=== PATIENT | male | born 1940 | race Caucasian/White ===

== ENCOUNTER 2019-03-20 08:12 | Day surgery (SDC) | payer OTHER ==
[2019-03-19 09:14] VITALS: BMI 32.5
[2019-03-20 08:44] LABS: BASO % 0.9 % (0-2.0); EOS % 3.1 % (0-4.5); HEMATOCRIT 41.4 % (35.4-49); HEMOGLOBIN 14.6 GM/dL (11.7-16.9); MCH 31.7 pg (25.7-33.7); MCHC 35.4 g/dl (32.0-35.9); MEAN CELL VOLUME 89.6 fl (80-96); MEAN PLT VOLUME 8.3 fl (7.5-11.1); PLATELET COUNT 204 K/MM3 (134-434); RBC 4.62 M/mm3 (4.00-5.60); RDW 15.3 % (11.9-15.9); WHITE BLOOD COUNT 6.5 K/mm3 (4.0-10.0)
[2019-03-20 09:21] LABS: INR 1.08 (0.83-1.09); PROTHROMBIN TIME (PATIENT) 12.8 SEC (9.7-13.0)
[2019-03-20 13:11] VITALS: BP 160/70; TEMP 98
[2019-03-20 13:15] VITALS: PULSE 8
[2019-03-20 13:22] LABS: BF WBC & OTHER NUCLEATED CELLS 6902 /mm3
[2019-03-20 15:08] LABS: BODYL FLD EOSINOPHIL 2 %
[2019-03-20 15:09] LABS: BODY FLUID MACROPHAGES 2 %
[2019-03-23 16:07] LABS: BODY FLUID ALBUMIN 2.5 g/dL (Not Estab.)
--- NOTE | 2019-03-23 16:21 | PATH ---
Cytology Non-Gynecological Report Patient Name: JON ALFARO [facility]. Rec. #: [id number] /Age/Gender: 1940 (Age: 78) / M Account: [id number] Location: [facility] SURGICAL Taken: 03/20/2019 Received: 03/20/2019 Reported: 03/23/2019 Physicians: Marky Wagoner M.D. Specimen(s) Received A: 50CC PLEURAL FLUID IN 50% ALCOHOL B: 1200 CC PLEURAL FLUID Clinical History History of prostatic cancer Final Diagnosis A & B. PLEURAL FLUID, RIGHT, THORACENTESIS: SATISFACTORY FOR EVALUATION. LYMPHOCYTIC PLEURAL EFFUSION. SMALL LYMPHOID POPULATION, FEW MACROPHAGES AND MESOTHELIAL CELLS PRESENT. SEE COMMENT. Comment: No evidence of carcinoma. Recommend correlation with clinical findings and follow up as clinically indicated. Electronically Signed Mira Kennedy M.D. Gross Description A. Approximately 50cc of edelmira colored fluid received fixed in 50% alcohol. One cytospin and one cellblock prepared. B. Approximately 1200cc of edelmira colored fluid received fresh. One cytospin and one cellblock prepared.
== END 2019-03-20 13:00 | disposition home or self-care (01) ==
LOC: JASU-SURG 08:12
PROVIDERS: ATTEND Internal Medicine Pulmonary Disease
PROC: 0W993ZZ Drainage of Right Pleural Cavity, Percutaneous Approach (ICD-10-PCS; principal; 2019-03-20)
PROC: BB4BZZZ Ultrasonography of Pleura (ICD-10-PCS; 2019-03-20)
DX: J90 Pleural effusion, not elsewhere classified (principal)
CPT/HCPCS: 32555; 36415; 71046-TC-FY; 76942; 82042; 82150; 82465; 82945; 83615; 83986; 84157; 84478; 85025; 85610; 87070; 87075; 87102; 87116; 87205; 87206; 87210; 88108; 88305-TC

== ENCOUNTER 2019-04-09 06:07 | Day surgery (SDC) | payer OTHER ==
[2019-04-08 09:26] VITALS: BMI 32.3
[2019-04-09] MEDS ORDERED: MIDAZOLAM HCL 2 MG/2 ML SINGLE DOSE VIAL ONE (06:51)
[2019-04-09] MEDS ORDERED: ePHEDrine SULFATE 50 MG/1 ML AMPULE ONE (06:57)
[2019-04-09] MEDS ORDERED: DEXAMETHASONE SOD PHOSPHATE 4 MG/1 ML VIAL ONE (06:57)
[2019-04-09] MEDS ORDERED: KETOROLAC TROMETHAMINE 30 MG/1 ML VIAL ONE (06:57)
[2019-04-09] MEDS ORDERED: ONDANSETRON 4 MG/2 ML VIAL ONE (06:57)
[2019-04-09] MEDS ORDERED: PROPOFOL 20 ML ONE (06:58)
[2019-04-09] MEDS ORDERED: SUCCINYLCHOLINE CHLORIDE 200 MG/10 ML SYRINGE ONE (06:58)
[2019-04-09] MEDS ORDERED: ROCURONIUM BROMIDE 50 MG/5 ML SYRINGE ONE (06:58)
[2019-04-09] MEDS ORDERED: SEVOFLURANE 250 ML BTL ONE (07:02)
[2019-04-09] MEDS ORDERED: DESFLURANE GAS 240 ML BOTTLE IH ONE (07:02)
[2019-04-09] MEDS ORDERED: BUPIVACAINE LIPOSOME/PF (EXPAREL) 266 MG/20 ML VIAL ONE (07:16)
[2019-04-09] MEDS ORDERED: BUPIVACAINE HCL/PF 0.5% (5 MG/ML) 30 ML VIAL IJ ONE (07:16)
[2019-04-09] MEDS ORDERED: ONDANSETRON 4 MG/2 ML VIAL IVPUSH PRN (07:19)
[2019-04-09] MEDS ORDERED: LACTATED RINGERS SOLUTION 1,000 ML IV SCH (07:30)
[2019-04-09] MEDS ORDERED: ASPIRIN 325 MG TABLET PO ONE (08:29)
--- NOTE | 2019-04-09 08:39 | PN ---
Progress Note (short form) - Note Progress Note: Pt with h/o Afib, EF30%, R pleural effusion s/p thoracentesis recently was brought to OR this morning for an elective laparoscopic right nephrectomy. He received 2mg versed en route to OR, and when EKG leads were placed, it showed ST depressions and widened QRS. Lead positions were changed twice, with same EKG result. Compared to pre-op EKG, this was a definitive change. 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 Will give 325mg PO ASA in PACU, as well as obtain 12lead EKG, CXR, and relevant lab work.
[2019-04-09 09:27] LABS: ALBUMIN 3.3 g/dl (3.4-5.0); BILIRUBIN,TOTAL 1.6 mg/dL (0.2-1); BLOOD UREA NITROGEN 15.5 mg/dL (7-18); CALCIUM 8.5 mg/dL (8.5-10.1); CREATININE 0.8 mg/dL (0.55-1.3); POTASSIUM 3.6 mmol/L (3.5-5.1); TOT PROT 6.4 g/dl (6.4-8.2)
[2019-04-09] MEDS ORDERED: ACETAMINOPHEN 1000 MG/100 ML VIAL (NON FORMULARY) IVPB ONE (11:00)
--- NOTE | 2019-04-09 11:31 | CON.CARD ---
Cardiology Consult (text) - Consultation Consultation Note: cc: elective kidney surgery hpi: 78 m hx syst chf, ar/as, pafib, htn, hld here for elective kidney surgery for tumor. Feeling well. No cp sob palps dizzy loc pnd orthopnea le edema. Procedure postponed today because tele monitor appeared different from his 12 lead ecg. pmh: per hpi psh: no surgery social: ex tob fam: no premature cad, scd ros: per hpi; all others nl meds: Home Medications Medication Instructions Recorded Apixaban [Eliquis] 5 mg PO BID 03/19/19 Atorvastatin Ca [Lipitor] 20 mg PO DAILY 03/19/19 Metoprolol Succinate 200 mg PO DAILY 03/19/19 Sacubitril/Valsartan [Entresto 97 1 tab PO BID 03/19/19 mg-103 mg Tablet] pe: Vital Signs Period Temp Pulse Resp BP Sys/Blanco Pulse Ox Last 24 Hr 97.8 F-98.0 F 63-72 16-20 127-158/58-78 95-98 nad no jvd irreg, s1s2, no r/g, +murmur no jaundice diaphoresis cta bl nl eff aao3 no le e/c/c abd nt nd pos bs pos dp pt no carotid bruits Laboratory Last Values Sodium 143 mmol/L (136-145) 04/09/19 08:32 Potassium 3.6 mmol/L (3.5-5.1) 04/09/19 08:32 Chloride 110 mmol/L (98-107) H 04/09/19 08:32 Carbon Dioxide 26 mmol/L (21-32) 04/09/19 08:32 Anion Gap 7 MMOL/L (8-16) L 04/09/19 08:32 BUN 15.5 mg/dL (7-18) 04/09/19 08:32 Creatinine 0.8 mg/dL (0.55-1.3) 04/09/19 08:32 Est GFR (CKD-EPI)AfAm 100.57 04/09/19 08:32 Est GFR (CKD-EPI)NonAf 86.77 04/09/19 08:32 Random Glucose 110 mg/dL (74-106) H 04/09/19 08:32 Calcium 8.5 mg/dL (8.5-10.1) 04/09/19 08:32 Total Bilirubin 1.6 mg/dL (0.2-1) H 04/09/19 08:32 AST 14 U/L (15-37) L 04/09/19 08:32 ALT 15 U/L (13-61) 04/09/19 08:32 Alkaline Phosphatase 74 U/L (45-117) 04/09/19 08:32 CK-MB (CK-2) 2.0 ng/mL (0.5-3.6) 04/09/19 08:32 Troponin I 0.02 ng/ml (0.00-0.05) 04/09/19 08:32 Total Protein 6.4 g/dl (6.4-8.2) 04/09/19 08:32 Albumin 3.3 g/dl (3.4-5.0) L 04/09/19 08:32 Blood Type O NEGATIVE 04/09/19 07:31 Antibody Screen Negative 04/09/19 07:05 ecg: afib, rate ok, lvh with repol changes, no sig change prior cxr: chronic changes a/p: 78 m hx syst chf, ar/as, pafib, htn, hld here for elective kidney surgery for tumor. abnl ekg: -tele strip in question was reviewed and shows st depression in lead I. This st depression is present chronically in pt's ecg's due to lvh with repolarization abnormality. Appeared more prominent on tele monitor, however this is a different modality than 12 lead ecg and slight variation in appearance is expected. No acute cardiac findings present today. No cardiac contraindications (intermediate risk) to planned kidney surgery. Avoid excess ivfs given his hx chf. Eliquis can be held temporarily. pafib: -cont bb for rate control -cont eliquis syst chf: -stable vol status. Cont bb, entresto. as/ar: Pt denies symptoms. Outpt f/u. hld: -cont statin htn: -cont home meds cardiac gee stable for dc
--- NOTE | 2019-04-09 12:41 | EKG ---
Test Reason : Blood Pressure : / mmHG Vent. Rate : 066 BPM Atrial Rate : 075 BPM P-R Int : 000 ms QRS Dur : 120 ms QT Int : 450 ms P-R-T Axes : 000 -39 159 degrees QTc Int : 471 ms ATRIAL FIBRILLATION WITH PREMATURE VENTRICULAR OR ABERRANTLY CONDUCTED COMPLEXES LEFT AXIS DEVIATION LEFT VENTRICULAR HYPERTROPHY WITH QRS WIDENING ABNORMAL ECG NO PREVIOUS ECGS AVAILABLE Confirmed by MATTHEW ZAMAN MD ([id number]) on 04/09/2019 12:40:23 PM Referred By: Confirmed By:MATTHEW ZAMAN MD
[2019-04-09 13:46] VITALS: BP 133/64; PULSE 75; TEMP 97.3
== END 2019-04-09 11:50 | disposition home or self-care (01) | DRG 844 ==
LOC: JASUSAT 06:07 → EDSTATUS 07:30 → UNDODISIN 11:50 → JASUSAT 11:50
PROVIDERS: ATTEND Urology
DX: Z53.8 Procedure and treatment not carried out for other reasons (principal)
CPT/HCPCS: 36415; 71045-TC-FY; 80053; 82553; 84484; 86850; 86900; 86901; 93005; 93010; 94760

== ENCOUNTER 2019-05-18 04:52 | Inpatient (IN) | payer OTHER ==
[2019-05-14 13:33] VITALS: BMI 31.8
[2019-05-18] MEDS ORDERED: BUPIVACAINE HCL/PF 0.5% (5 MG/ML) 30 ML VIAL IJ ONE (07:30)
[2019-05-18] MEDS ORDERED: BUPIVACAINE LIPOSOME/PF (EXPAREL) 266 MG/20 ML VIAL ONE (07:30)
[2019-05-18] MEDS ORDERED: MIDAZOLAM HCL 2 MG/2 ML SINGLE DOSE VIAL ONE ×2 (07:36)
[2019-05-18] MEDS ORDERED: ETOMIDATE 20 MG/10 ML AMPUL IVPUSH ONE (07:43)
[2019-05-18] MEDS ORDERED: fentaNYL CITRATE 250 MCG/5 ML VIAL ONE (07:43)
[2019-05-18] MEDS ORDERED: ROCURONIUM BROMIDE 50 MG/5 ML SYRINGE ONE ×2 (07:43→08:54)
[2019-05-18] MEDS ORDERED: PROPOFOL 20 ML ONE (08:02)
[2019-05-18] MEDS ORDERED: ceFAZolin SODIUM 1 GM VIAL IVPB ONE (08:27)
[2019-05-18] MEDS ORDERED: NEOSTIGMINE METHYLSULFATE 0.5 MG/ML - 10 ML MDV ONE (10:30)
[2019-05-18] MEDS ORDERED: BACITRACIN 15 GM TUBE TOPICAL OINTMENT ONE (10:34)
--- NOTE | 2019-05-18 10:49 | OP ---
Operative Note - Note: Operative Date: 05/18/19 Pre-Operative Diagnosis: rt kidney tumor Operation: lap rt nephrectomy Post-Operative Diagnosis: Same as Pre-op Surgeon: Marky Garza Anesthesia: General Specimens Removed: rt kid Estimated Blood Loss (mls): 250 Operative Report Dictated: Yes
[2019-05-18] MEDS ORDERED: ELECTROLYTE-148 SOLN 1,000 ML IV SCH (11:00)
[2019-05-18] MEDS ORDERED: ONDANSETRON 4 MG/2 ML VIAL IVPUSH PRN (11:07)
[2019-05-18] MEDS ORDERED: HYDROmorphone *PCA* 10MG/50ML DISP.SYRIN PCA SCH (11:15)
--- NOTE | 2019-05-18 11:56 | OP ---
DATE OF OPERATION: 05/18/2019 PREOPERATIVE DIAGNOSIS: Large right kidney tumor. POSTOPERATIVE DIAGNOSIS: Large right kidney tumor. PROCEDURE: Laparoscopic, right radical nephrectomy. SURGEON: Christiano Apodaca MD CO-SURGEON: Marky Garza MD INDICATIONS: Patient is a 78-year-old male with a large, incidentally noted 9- cm low pole right kidney tumor who elected to undergo a laparoscopic right radical nephrectomy. Risks, benefits, and alternatives discussed including potential need for open nephrectomy as well as injury to adjacent organs. DESCRIPTION OF PROCEDURE: After informed consent was obtained, patient was taken to the OR, placed supine on the table. After cardiac monitoring was administered, spinal anesthetic was established, he was prepped and draped in a classic flank position with the right side up, left side down. All pressure points were padded, and the Moreno catheter and OG tube were inserted. At this point, in a sterile fashion, a Veress needle was placed in the mid abdomen on the right side lateral to the rectus abdominis after 3 clicks until the abdominal cavity was entered. This was insufflated with gas and appropriate pressure was noted. With this removed then a 12-mm trocar was placed in its place with a Veress needle and through the trocar , the laparoscope was placed. Inspection revealed no evidence of any injury to the bowel, any organ in the abdominal cavity. Under visualization, triangulation was carried out with a 2nd 12-mm trocar in the right lower quadrant and a 13-mm trocar in the right upper quadrant. These were done 12-mm trocars under visual inspection. There was a 4th 5-mm trocar placed just below the xiphoid process on the right side for liver retractor. These were, again, all done under visualization. There is the liver retractor, a locking grasper was used to retract the liver cephalad. At this point then the peritoneum was incised over where the liver was sitting to free up the upper pole. In a similar fashion, medially the peritoneum was incised inferiorly to free the bowel immediately. Immediately, the IVC was identified. This was dissected to the renal vein. The renal vein was dissected free with a right-angle dissector and just superior and lateral to vein, the artery was noted. This was dissected free with the right-angle dissector. Using the vascular endo MIGUEL, the renal artery was taken 1st and then the renal vein. No other vessels were identified, and this was consistent with the patient's CAT scan findings. The rest of the attachments were freed with LigaSure including the inferior gonadal and ureter. The remaining lateral attachments were then freed until the entire kidney was freed. It was then placed into a 15-mm bag that was inserted in the lower quadrant trocar site. Under direct vision, the kidney was placed in the bag and the bag brought up to the trocar site. The abdomen was then re-insufflated and re-inspected. There was no evidence of any bleeding from the renal hilum or the liver bed. Surgicel and Gelfoam was placed in both areas. There is no injury to any adjacent organs. Then the right lower quadrant trocar site was incised to remove the entire kidney in the entrapment bag. Visual inspection revealed no evidence of any active bleeding from the wound. Attention turned to wound closure. The 3 trocar sites were closed with moy and then the right lower quadrant site was closed with a running 0 Vicryl in a 2- layered fashion for muscle layers and then skin was closed with skin moy. Patient was awoken from anesthesia and transferred to recovery room in stable condition. There were no complications. Estimated blood loss was approximately 250 mL. Deedee [id number] MTDD
[2019-05-18] MEDS ORDERED: DOCUSATE NA 100 MG/10 ML UNIT-DOSE CUPS PO ONE (12:16)
[2019-05-18] MEDS ORDERED: HYDROmorphone *PCA* 10MG/50ML DISP.SYRIN ONE (12:26)
[2019-05-18 12:27] LABS: HEMATOCRIT 40.4 % (35.4-49); HEMOGLOBIN 13.2 GM/dL (11.7-16.9); MCH 29.3 pg (25.7-33.7); MCHC 32.6 g/dl (32.0-35.9); MEAN CELL VOLUME 89.6 fl (80-96); MEAN PLT VOLUME 8.3 fl (7.5-11.1); PLATELET COUNT 232 K/MM3 (134-434); RBC 4.51 M/mm3 (4.00-5.60); RDW 14.7 % (11.9-15.9); WHITE BLOOD COUNT 13.9 K/mm3 (4.0-10.0)
--- NOTE | 2019-05-18 12:52 | CON.CARD ---
Cardiology Consult (text) - Consultation Consultation Note: cc: s/p elective kidney surgery hpi: 78 m hx syst chf, ar/as, pafib, htn, hld here for elective kidney surgery for tumor, now s/p surgery. Surgery had been postponed in 03/2019 due to abnormal tele monitoring with stable EKG findings. No cp sob palps dizzy loc pnd orthopnea le edema. No complications during procedure, now monitoring in PACU. pmh: per hpi psh: no surgery social: ex tob fam: no premature cad, scd ros: per hpi; all others nl meds: Home Medications Medication Instructions Recorded Apixaban [Eliquis] 5 mg PO BID 03/19/19 Atorvastatin Ca [Lipitor] 20 mg PO DAILY 03/19/19 Metoprolol Succinate 200 mg PO DAILY 03/19/19 Sacubitril/Valsartan [Entresto 97 1 tab PO BID 03/19/19 mg-103 mg Tablet] pe: Vital Signs Period Temp Pulse Resp BP Sys/Blanoc Pulse Ox Last 24 Hr 97.7 F 52 20 155/71 97 nad no jvd irreg, s1s2, no r/g, +murmur no jaundice diaphoresis cta bl nl eff aao3 no le e/c/c abd nt nd pos bs pos dp pt no carotid bruits Laboratory Last Values WBC 13.9 K/mm3 (4.0-10.0) H 05/18/19 11:45 RBC 4.51 M/mm3 (4.00-5.60) 05/18/19 11:45 Hgb 13.2 GM/dL (11.7-16.9) 05/18/19 11:45 Hct 40.4 % (35.4-49) 05/18/19 11:45 MCV 89.6 fl (80-96) 05/18/19 11:45 MCH 29.3 pg (25.7-33.7) 05/18/19 11:45 MCHC 32.6 g/dl (32.0-35.9) 05/18/19 11:45 RDW 14.7 % (11.9-15.9) 05/18/19 11:45 Plt Count 232 K/MM3 (134-434) 05/18/19 11:45 MPV 8.3 fl (7.5-11.1) 05/18/19 11:45 Blood Type O NEGATIVE 05/18/19 06:14 Antibody Screen Negative 05/18/19 06:14 ecg: afib, rate ok, lvh with repol changes, no sig change prior cxr: chronic changes tele: afib, rate ok a/p: 78 m hx syst chf, ar/as, pafib, htn, hld here for elective kidney surgery for tumor. s/p R nephrectomy - manage per urology, anesthesia - resume eliquis when able per surgery - monitoring on tele post op pafib: -cont bb for rate control -resume eliquis when clear per surgery syst chf: -stable vol status. Cont bb, entresto. as/ar: Pt denies symptoms. Outpt f/u. hld: -cont statin htn: -cont home meds
[2019-05-18 12:53] LABS: BLOOD UREA NITROGEN 21.2 mg/dL (7-18); CALCIUM 8.4 mg/dL (8.5-10.1); CREATININE 1.1 mg/dL (0.55-1.3); POTASSIUM 4.2 mmol/L (3.5-5.1)
--- NOTE | 2019-05-18 13:25 | HP ---
CHIEF COMPLAINT: s/p R radical nephrectomy Urologist: Dr. Garza Wing Coverer: Dr. Ortiz HISTORY OF PRESENT ILLNESS: 78 M h/o HFrEF 30%, HTN, HLD, Afib on Eliquis presents s/p elective laparoscopic R radical nephrectomy for a R kidney mass. Patient was scheduled for this procedure originally 04/14 but surgery was cancelled d/t suspected ischemic EKG changes on tele strip. Currently patient feeling OK, denies CP/ SOB. EBL 250cc, patient tolerated surgery well. Perioperatively VSS. Patient requested to be transferred to Medicine service for further management of Afib, chronic HF and HTN. Recent Travel: denies PAST MEDICAL HISTORY: HFrEF, HTN, HLD, Afib on AC PAST SURGICAL HISTORY: R radical Nephrectomy 04/2019 Social History: denies Smoking: denies Alcohol: denies Drugs: denies Allergies amlodipine Allergy (Severe, Verified 04/09/19 07:08) Swelling LE'S SWELLING HOME MEDICATIONS: Home Medications Medication Instructions Recorded Apixaban [Eliquis] 5 mg PO BID 03/19/19 Atorvastatin Ca [Lipitor] 20 mg PO DAILY 03/19/19 Metoprolol Succinate 200 mg PO DAILY 03/19/19 Sacubitril/Valsartan [Entresto 97 1 tab PO BID 03/19/19 mg-103 mg Tablet] REVIEW OF SYSTEMS CONSTITUTIONAL: Absent: fever, chills, diaphoresis, generalized weakness, malaise, loss of appetite, weight change HEENT: Absent: rhinorrhea, nasal congestion, throat pain, throat swelling, difficulty swallowing, mouth swelling, ear pain, eye pain, visual changes CARDIOVASCULAR: Absent: chest pain, syncope, palpitations, irregular heart rate, lightheadedness , peripheral edema RESPIRATORY: Absent: cough, shortness of breath, dyspnea with exertion, orthopnea, wheezing, stridor, hemoptysis GASTROINTESTINAL: Absent: abdominal pain, abdominal distension, nausea, vomiting, diarrhea, constipation, melena, hematochezia GENITOURINARY: Absent: R flank pain MUSCULOSKELETAL: Absent: myalgia, arthralgia, joint swelling, back pain, neck pain SKIN: Absent: rash, itching, pallor HEMATOLOGIC/IMMUNOLOGIC: Absent: easy bleeding, easy bruising, lymphadenopathy, frequent infections ENDOCRINE: Absent: unexplained weight gain, unexplained weight loss, heat intolerance, cold intolerance NEUROLOGIC: Absent: headache, focal weakness or paresthesias, dizziness, unsteady gait, seizure, mental status changes, bladder or bowel incontinence PSYCHIATRIC: Absent: anxiety, depression, suicidal or homicidal ideation, hallucinations. PHYSICAL EXAMINATION Vital Signs - 24 hr 05/18/19 05/18/19 05/18/19 06:46 10:51 11:05 Temperature 97.7 F 97.7 F Pulse Rate 52 L 96 H 79 Respiratory 20 16 18 Rate Blood Pressure 155/71 147/82 168/74 O2 Sat by Pulse 97 97 97 Oximetry (%) 05/18/19 05/18/19 05/18/19 11:20 11:35 11:50 Temperature Pulse Rate 75 70 74 Respiratory 18 18 18 Rate Blood Pressure 153/85 136/63 138/89 O2 Sat by Pulse 98 97 98 Oximetry (%) GENERAL: Awake, alert, and fully oriented, tired appearing HEAD: Normal with no signs of trauma. EYES: Pupils equal, round and reactive to light, extraocular movements intact, sclera anicteric, conjunctiva clear. No lid lag. EARS, NOSE, THROAT: Ears normal, nares patent, oropharynx clear without exudates. Moist mucous membranes. NECK: Normal range of motion, supple without lymphadenopathy, JVD, or masses. LUNGS: CTAB, no audible crackles, no accessory muscle use for respiration, no wheezing HEART: irregularly irregular, S1, S2+, RY+ ABDOMEN: Soft, R flank tenderness, not distended, normoactive bowel sounds, no guarding, no rebound, no masses. No hepatomegaly or splenomegaly. UPPER EXTREMITIES: 2+ pulses, warm, well-perfused. No cyanosis. No clubbing. No peripheral edema. LOWER EXTREMITIES: 2+ pulses, warm, well-perfused. No calf tenderness. No peripheral edema. NEUROLOGICAL: Cranial nerves II-XII intact. normal speech. PSYCHIATRIC: Cooperative. Good eye contact. Appropriate mood and affect. SKIN: Warm, dry, normal turgor, no rashes or lesions noted, normal capillary refill. Laboratory Results - last 24 hr 05/18/19 05/18/19 05/18/19 06:14 11:45 11:45 WBC 13.9 H RBC 4.51 Hgb 13.2 Hct 40.4 MCV 89.6 MCH 29.3 MCHC 32.6 RDW 14.7 Plt Count 232 MPV 8.3 Sodium 142 Potassium 4.2 Chloride 110 H Carbon Dioxide 26 Anion Gap 6 L BUN 21.2 H Creatinine 1.1 Est GFR (CKD-EPI)AfAm 75.18 Est GFR (CKD-EPI)NonAf 64.86 Random Glucose 168 H Calcium 8.4 L Blood Type O NEGATIVE Antibody Screen Negative ASSESSMENT/PLAN: 78 M HFrEF, HTN, Afib on Eliquis, with R kidney mass s/p elective R laparoscopic radical nephrectomy. Tolerated surgery well. Denies SOB, CP, or pain currently. Patient to be transferred to Medicine service for further management of comorbidities. S/p R radical nephrectomy Patient was given Ancef for prophylactic abx, obtain daily CBC and chem, watch VS for fever spikes, monitor renal function Pain control with Morphine 2mg Q6H, and Hydromorphone for breakthrough pain 7-10 Urology: Dr. Garza HFrEF Not in acute HF exacerbation, no signs of fluid overload, denies CP/SOB/CHF symptoms Cont. gentle hydration at 50cc/hr avoid fluid overload in view of HF, obtain daily electrolytes Evaluated by Cardiology, cont. Entresto and metropolol (patient already took his meds this morning so next dose in AM) Cardiology: Dr. Ortiz, Dr. Hayward Afib Hold Eliquis as per surgery Rate controlled, Not in RVR, cont. BB SCD for now for DVT ppx HTN Systolic BP slightly elevated likely due to pain response Control Pain, cont. Metoprolol 200mg daily HLD Cont. Statin check LFTs with next blood draw DVT ppx: hold Eliquis for now as per surgery, SCD for DVT ppx FEN: NS @ 50mL/hr, daily chem, liquid diet Bowel regimen: Senna, Docusate, Miralax HOB elevation, incentive spirometer Visit type - Emergency Visit Emergency Visit: No - New Patient This patient is new to me today: Yes Date on this admission: 05/18/19 - Critical Care Critical Care patient: No
[2019-05-18] MEDS: LACTATED RINGERS SOLUTION 1,000 ML IV SCH (16:31)
[2019-05-18] MEDS ORDERED: DEXTROSE 5%-WATER - 50 ML IVPB ONE (20:52)
[2019-05-18] MEDS ORDERED: ceFAZolin SODIUM 1 GM VIAL ONE (20:52)
[2019-05-18] MEDS ORDERED: PT OWN MED DRAWER 7, Y5N ONE (20:53)
[2019-05-18] MEDS: CEFAZOLIN 1 GM in DEXTROSE 5%-WATER - 50 ML IVPB SCH (21:00)
[2019-05-18] MEDS: SACUBITRIL/VALSARTAN 97 MG-103 MG TABLET PO SCH (22:09)
[2019-05-18] MEDS: SENNOSIDES 8.6MG TABLET (FP) PO SCH (22:10)
[2019-05-18] MEDS: ATORVASTATIN CA 20 MG TABLET (FP) PO SCH (22:10)
[2019-05-19] MEDS ORDERED: ceFAZolin SODIUM 1 GM VIAL ONE ×3 (02:23→17:03)
[2019-05-19] MEDS ORDERED: DEXTROSE 5%-WATER - 50 ML IVPB ONE ×3 (02:24→17:03)
[2019-05-19] MEDS: CEFAZOLIN 1 GM in DEXTROSE 5%-WATER - 50 ML IVPB SCH ×3 (02:33→17:06)
[2019-05-19 06:43] LABS: BASO % 0.4 % (0-2.0); HEMATOCRIT 38.1 % (35.4-49); HEMOGLOBIN 12.9 GM/dL (11.7-16.9); LYMPH % 6.4 % (8-40); MCH 30.1 pg (25.7-33.7); MCHC 33.8 g/dl (32.0-35.9); MEAN PLT VOLUME 8.2 fl (7.5-11.1); MONO % 10.4 % (3.8-10.2); NEUT % 82.8 % (42.8-82.8); PLATELET COUNT 206 K/MM3 (134-434); RBC 4.28 M/mm3 (4.00-5.60); RDW 15.3 % (11.9-15.9)
[2019-05-19 06:58] LABS: ALBUMIN 3.2 g/dl (3.4-5.0); BILIRUBIN,DIRECT 0.4 mg/dL (0.0-0.2); BILIRUBIN,TOTAL 1.8 mg/dL (0.2-1); BLOOD UREA NITROGEN 22.9 mg/dL (7-18); CALCIUM 8.6 mg/dL (8.5-10.1); CREATININE 1.4 mg/dL (0.55-1.3); POTASSIUM 4.2 mmol/L (3.5-5.1); TOT PROT 6.6 g/dl (6.4-8.2)
--- NOTE | 2019-05-19 08:30 | PN ---
Progress Note (short form) - Note Progress Note: POD#1 s/p Rt lap nephrectomy good pain control on IVPCA Abd distended, but soft Urine tea colored WBC 12, HCT 38, Creat 1.4 OOB ambulating, cont clears, cont ames, d/c IVPCA, oral anagesics
[2019-05-19] MEDS ORDERED: ACETAMINOPHEN WITH CODEINE 300MG/30MG TABLET PO PRN ×2 (08:32→16:58)
[2019-05-19] MEDS ORDERED: PT OWN MED DRAWER 7, Y5N ONE ×3 (08:56→21:40)
--- NOTE | 2019-05-19 09:28 | PN ---
Progress Note (short form) - Note Progress Note: Patient seen. Doing well on POD#1 after Lap radical nephrectomy.. Adequate pain control. C/O being bloated. No recall or other complaints.
[2019-05-19] MEDS: SACUBITRIL/VALSARTAN 97 MG-103 MG TABLET PO SCH ×2 (09:39→22:05)
[2019-05-19] MEDS: POLYETHYLENE GLYCOL 3350 119 GM BTL PO SCH (10:00)
--- NOTE | 2019-05-19 10:57 | PN ---
Progress Note (short form) - Note Progress Note: s: no cp sob palps dizzy Current Medications Generic Name Dose Route Start Last Admin Trade Name Freq PRN Reason Stop Dose Admin Acetaminophen/Codeine Phosphate 1 tab 05/19/19 08:32 Tylenol # 3 - PO Q6H PRN FEVER Atorvastatin Calcium 20 mg 05/18/19 22:00 05/18/19 22:10 Lipitor - PO 20 mg HS LAUREN Administration Lactated Ringer's 1,000 mls @ 75 mls/hr 05/18/19 11:15 05/18/19 16:31 Lactated Ringers Solution IV Not Given ASDIR LAUREN Cefazolin Sodium 1 gm/ 50 mls @ 100 mls/hr 05/18/19 20:00 05/19/19 09:40 Dextrose IVPB 100 mls/hr Q8H-IV LAUREN Administration Metoprolol Succinate 200 mg 05/19/19 10:00 05/19/19 09:39 Toprol Xl - PO 200 mg DAILY LAUREN Administration Ondansetron HCl 4 mg 05/18/19 11:07 05/19/19 05:35 Zofran Injection IVPUSH 4 mg Q6H PRN Administration NAUSEA AND/OR VOMITING Polyethylene Glycol 17 gm 05/19/19 10:00 Miralax (For Daily Use) - PO DAILY LAUREN Sacubitril/Valsartan 1 tab 05/18/19 22:00 05/19/19 09:39 Entresto 97 Mg-103 Mg Tablet PO 1 tab BID LAUREN Administration Senna 1 tab 05/18/19 22:00 05/18/19 22:10 Senna - PO 1 tab HS LAUREN Administration Vital Signs Period Temp Pulse Resp BP Sys/Blanco Pulse Ox Last 24 Hr 97.3 F-98.5 F 70-81 18-20 109-168/57-89 96-98 nad no jvd irreg, s1s2, no r/g, +murmur no jaundice diaphoresis cta bl nl eff aao3 no le e/c/c abd nt nd pos bs pos dp pt no carotid bruits CBC, BMP 05/19/19 05:59 05/19/19 05:59 ecg: afib, rate ok, lvh with repol changes, no sig change prior cxr: chronic changes tele: afib, rate ok a/p: 78 m hx syst chf, ar/as, pafib, htn, hld here for elective kidney surgery for tumor. s/p R nephrectomy - manage per urology, anesthesia - resume eliquis when able per surgery - monitoring on tele post op pafib: -cont bb for rate control -resume eliquis when clear per surgery syst chf: -stable vol status. Cont bb, entresto. as/ar: Pt denies symptoms. Outpt f/u. hld: -cont statin htn: -cont home meds
[2019-05-19] MEDS: LACTATED RINGERS SOLUTION 1,000 ML IV SCH (11:15)
--- NOTE | 2019-05-19 15:14 | PN ---
Physical Exam: SUBJECTIVE: Patient seen and examined, in no acute distress, feels ok, denies any pain. stood up for me and denies dizziness with standing. complains of insomnia. OBJECTIVE: Patient is a 78 year old male with a significant past medical history of 6 hypertension, hld, afib who is s/p elective laparoscopic R radical nephrectomy for a right kidney mass. On exam, patient is awake, alert and in no acute distress. Vital Signs Period Temp Pulse Resp BP Sys/Blanco Pulse Ox Last 24 Hr 97.3 F-99.3 F 72-95 18-20 135-144/60-85 97-99 GENERAL: The patient is awake, alert, and fully oriented, in no acute distress. HEAD: Normal with no signs of trauma. EYES: PERRL, extraocular movements intact, sclera anicteric, conjunctiva clear. No ptosis. ENT: Ears normal, nares patent, oropharynx clear without exudates, moist mucous membranes. NECK: Trachea midline, full range of motion, supple. LUNGS: Breath sounds equal, clear to auscultation bilaterally, no wheezes HEART: Regular rate and rhythm ABDOMEN: surgical abdominal dressing c/d/i EXTREMITIES: no edema. NEUROLOGICAL: Normal speech, gait not observed. PSYCH: Normal mood, normal affect. Laboratory Results - last 24 hr 05/19/19 05/19/19 05:59 05:59 WBC 12.0 H RBC 4.28 Hgb 12.9 Hct 38.1 MCV 89.0 MCH 30.1 MCHC 33.8 RDW 15.3 Plt Count 206 MPV 8.2 Absolute Neuts (auto) 10.0 H Neutrophils % 82.8 Lymphocytes % 6.4 L D Monocytes % 10.4 H Eosinophils % 0.0 D Basophils % 0.4 Nucleated RBC % 0 Sodium 141 Potassium 4.2 Chloride 107 Carbon Dioxide 27 Anion Gap 7 L BUN 22.9 H Creatinine 1.4 H Est GFR (CKD-EPI)AfAm 56.16 Est GFR (CKD-EPI)NonAf 48.46 Random Glucose 126 H Calcium 8.6 Total Bilirubin 1.8 H Direct Bilirubin 0.4 H AST 46 H ALT 44 Alkaline Phosphatase 62 Total Protein 6.6 Albumin 3.2 L Active Medications Generic Name Dose Route Start Last Admin Trade Name Freq PRN Reason Stop Dose Admin Acetaminophen/Codeine Phosphate 1 tab 05/19/19 08:32 Tylenol # 3 - PO Q6H PRN FEVER Atorvastatin Calcium 20 mg 05/18/19 22:00 05/18/19 22:10 Lipitor - PO 20 mg HS LAUREN Administration Lactated Ringer's 1,000 mls @ 75 mls/hr 05/18/19 11:15 05/18/19 16:31 Lactated Ringers Solution IV Not Given ASDIR LAUREN Cefazolin Sodium 1 gm/ 50 mls @ 100 mls/hr 05/18/19 20:00 05/19/19 09:40 Dextrose IVPB 100 mls/hr Q8H-IV LAUREN Administration Melatonin 3 mg 05/19/19 22:00 Melatonin PO HS LAUREN Metoprolol Succinate 200 mg 05/19/19 10:00 05/19/19 09:39 Toprol Xl - PO 200 mg DAILY LAUREN Administration Ondansetron HCl 4 mg 05/18/19 11:07 05/19/19 05:35 Zofran Injection IVPUSH 4 mg Q6H PRN Administration NAUSEA AND/OR VOMITING Polyethylene Glycol 17 gm 05/19/19 10:00 Miralax (For Daily Use) - PO DAILY LAUREN Sacubitril/Valsartan 1 tab 05/18/19 22:00 05/19/19 09:39 Entresto 97 Mg-103 Mg Tablet PO 1 tab BID LAUREN Administration Senna 1 tab 05/18/19 22:00 05/18/19 22:10 Senna - PO 1 tab HS LAUREN Administration ASSESSMENT/PLAN: Problem List - Problems (1) S/p nephrectomy Assessment/Plan: On ancef for prophylactic abx Monitor vitals, daily cbc/cmp, monitor renal function and urinary output post op care: bowel regimen, incentive spriometer, early ambulation and pain control repeat cbc now Code(s): Z90.5 - ACQUIRED ABSENCE OF KIDNEY (2) Afib Assessment/Plan: eliquis on hold s/p surgery on toprol resume per surgery Code(s): I48.91 - UNSPECIFIED ATRIAL FIBRILLATION (3) Systolic CHF Assessment/Plan: monitor bp on entresto, toprol on tele Code(s): I50.20 - UNSPECIFIED SYSTOLIC (CONGESTIVE) HEART FAILURE (4) DVT prophylaxis Assessment/Plan: scds Code(s): Z29.9 - ENCOUNTER FOR PROPHYLACTIC MEASURES, UNSPECIFIED Visit type - Emergency Visit Emergency Visit: Yes ED Registration Date: 05/18/19 Care time: The patient presented to the Emergency Department on the above date and was hospitalized for further evaluation of their emergent condition. - New Patient This patient is new to me today: Yes Date on this admission: 05/19/19 - Critical Care Critical Care patient: No - Discharge Referral Referred to [facility] No
[2019-05-19] MEDS ORDERED: DOCUSATE SODIUM 100 MG CAPSULE (FP) PO PRN (16:29)
[2019-05-19] MEDS ORDERED: ACETAMINOPHEN 325 MG TABLET (FP) PO PRN (16:58)
[2019-05-19 17:53] LABS: HEMATOCRIT 39.3 % (35.4-49); MCH 29.7 pg (25.7-33.7); MCHC 33.2 g/dl (32.0-35.9); MEAN CELL VOLUME 89.6 fl (80-96); MEAN PLT VOLUME 8.3 fl (7.5-11.1); PLATELET COUNT 215 K/MM3 (134-434); RBC 4.38 M/mm3 (4.00-5.60); RDW 15.3 % (11.9-15.9); WHITE BLOOD COUNT 17.4 K/mm3 (4.0-10.0)
[2019-05-19] MEDS: SENNOSIDES 8.6MG TABLET (FP) PO SCH (22:05)
[2019-05-19] MEDS: ATORVASTATIN CA 20 MG TABLET (FP) PO SCH (22:05)
[2019-05-19] MEDS: MELATONIN 1 MG TABLET PO SCH (22:05)
[2019-05-20] MEDS ORDERED: ceFAZolin SODIUM 1 GM VIAL ONE ×2 (01:08→09:27)
[2019-05-20] MEDS ORDERED: DEXTROSE 5%-WATER - 50 ML IVPB ONE ×2 (01:09→09:27)
[2019-05-20] MEDS: CEFAZOLIN 1 GM in DEXTROSE 5%-WATER - 50 ML IVPB SCH ×2 (01:16→09:48)
[2019-05-20 06:48] LABS: BASO % 0.2 % (0-2.0); HEMATOCRIT 34.7 % (35.4-49); HEMOGLOBIN 11.6 GM/dL (11.7-16.9); MCH 29.9 pg (25.7-33.7); MCHC 33.5 g/dl (32.0-35.9); MEAN CELL VOLUME 89.3 fl (80-96); MEAN PLT VOLUME 8.1 fl (7.5-11.1); MONO % 8.5 % (3.8-10.2); NEUT % 86.3 % (42.8-82.8); PLATELET COUNT 156 K/MM3 (134-434); RBC 3.88 M/mm3 (4.00-5.60); RDW 15.4 % (11.9-15.9); WHITE BLOOD COUNT 14.1 K/mm3 (4.0-10.0)
[2019-05-20 07:57] LABS: BLOOD UREA NITROGEN 24.4 mg/dL (7-18); CALCIUM 8.8 mg/dL (8.5-10.1); CREATININE 1.4 mg/dL (0.55-1.3); POTASSIUM 3.8 mmol/L (3.5-5.1)
--- NOTE | 2019-05-20 09:20 | PN ---
Progress Note, Physician Chief Complaint: afib History of Present Illness: no cp, sob, palp, dizzy - Current Medication List Current Medications: Active Medications Acetaminophen (Tylenol -) 325 mg PO Q6H PRN PRN Reason: FEVER Last Admin: 05/19/19 17:16 Dose: 325 mg Acetaminophen/Codeine Phosphate (Tylenol # 3 -) 1 tab PO Q6H PRN PRN Reason: PAIN LEVEL 7 - 10 Atorvastatin Calcium (Lipitor -) 20 mg PO HS [facility] Last Admin: 05/19/19 22:05 Dose: 20 mg Docusate Sodium (Colace -) 100 mg PO BID PRN PRN Reason: CONSTIPATION Last Admin: 05/19/19 17:42 Dose: 100 mg Lactated Ringer's (Lactated Ringers Solution) 1,000 mls @ 75 mls/hr IV ASDIR [facility] Last Admin: 05/19/19 11:15 Dose: 75 mls/hr Cefazolin Sodium 1 gm/ (Dextrose) 50 mls @ 100 mls/hr IVPB Q8H-IV [facility] Last Admin: 05/20/19 01:16 Dose: 100 mls/hr Melatonin (Melatonin) 3 mg PO HS [facility] Last Admin: 05/19/19 22:05 Dose: 3 mg Metoprolol Succinate (Toprol Xl -) 200 mg PO DAILY [facility] Ondansetron HCl (Zofran Injection) 4 mg IVPUSH Q6H PRN PRN Reason: NAUSEA AND/OR VOMITING Last Admin: 05/19/19 05:35 Dose: 4 mg Polyethylene Glycol (Miralax (For Daily Use) -) 17 gm PO DAILY [facility] Last Admin: 05/19/19 10:00 Dose: 17 gm Sacubitril/Valsartan (Entresto 97 Mg-103 Mg Tablet) 1 tab PO BID [facility] Last Admin: 05/19/19 22:05 Dose: 1 tab Senna (Senna -) 1 tab PO [facility] Last Admin: 05/19/19 22:05 Dose: 1 tab - Objective Vital Signs: Vital Signs Temperature 97.7 F 05/20/19 05:43 Pulse Rate 92 H 05/20/19 05:43 Respiratory Rate 20 05/20/19 05:43 Blood Pressure 158/68 05/20/19 05:43 O2 Sat by Pulse Oximetry (%) 99 05/19/19 20:58 Constitutional: Yes: Well Nourished, No Distress, Calm Cardiovascular: Yes: Pulse Irregular, S1, S2. No: Gallop, Murmur Respiratory: Yes: Regular, CTA Bilaterally. No: Accessory Muscle Use, Rales Extremities: No: Cold Edema: No Neurological: Yes: Alert, Oriented Psychiatric: No: Agitated Labs: CBC, BMP 05/20/19 06:05 05/20/19 06:05 Assessment/Plan ecg: afib, rate ok, lvh with repol changes, no sig change prior cxr: chronic changes Echo 12/05 (office): mild LVE, sev global LV hypo (30-35%). nl RV. mod-sev AI, mod tele: afib, rate controlled a/p: 78 m hx syst chf, ar/as, pafib, htn, hld here for elective kidney surgery for tumor. s/p R nephrectomy - manage per urology pafib: -cont bb for rate control -resume eliquis when clear per surgery--d/w'd dr arrieta, wishes to observe H/ H for another 24-48 hrs to ensure stability AQUILES: -? sec to nephrectomy with impaired reserved in remaining kidney -continue same Entresto dose while monitoring creat, K -otherwise per [place], hospitalist syst chf: -euvolemic -cont bb, entresto as doing as/ar: -no s/sx chf -follows with dr gonzalez as outpatient--referral for AVR previously deferred -outpt f/u to continued hld: -cont statin htn: -cont home meds D/C TELE
[2019-05-20] MEDS ORDERED: PT OWN MED DRAWER 7, Y5N ONE ×2 (09:27→20:57)
[2019-05-20] MEDS: POLYETHYLENE GLYCOL 3350 119 GM BTL PO SCH (09:47)
[2019-05-20] MEDS: SACUBITRIL/VALSARTAN 97 MG-103 MG TABLET PO SCH ×2 (09:48→21:18)
[2019-05-20] MEDS: LACTATED RINGERS SOLUTION 1,000 ML IV SCH (10:15)
[2019-05-20] MEDS ORDERED: LORazepam 2 MG/ML SDV VIAL ONE (10:51)
--- NOTE | 2019-05-20 16:04 | PN ---
Physical Exam: SUBJECTIVE: Patient seen and examined at the bedside. in no acute distress. feels well, ames removed and has not yet voided. no dizziness, denies pain, eating well. OBJECTIVE: Patient is a 78 year old male with a significant past medical history of 6 hypertension, hld, afib who is s/p elective laparoscopic R radical nephrectomy for a right kidney mass. On exam, patient is awake, alert and in no acute distress. cbc stable, repeat in a.m. Vital Signs Period Temp Pulse Resp BP Sys/Blanco Pulse Ox Last 24 Hr 97.7 F-99.3 F 87-103 20-20 131-158/60-91 90-99 GENERAL: The patient is awake, alert, and fully oriented, in no acute distress. HEAD: Normal with no signs of trauma. EYES: PERRL, extraocular movements intact, sclera anicteric, conjunctiva clear. No ptosis. ENT: Ears normal, nares patent, oropharynx clear without exudates, moist mucous membranes. NECK: Trachea midline, full range of motion, supple. LUNGS: Breath sounds equal, clear to auscultation bilaterally, no wheezes HEART: Regular rate and rhythm ABDOMEN: surgical abdominal dressing c/d/i EXTREMITIES: no edema. NEUROLOGICAL: Normal speech, gait not observed. PSYCH: Normal mood, normal affect. Laboratory Results - last 24 hr 05/19/19 05/20/19 05/20/19 17:35 06:05 06:05 WBC 17.4 H 14.1 H RBC 4.38 3.88 L Hgb 13.0 11.6 L Hct 39.3 34.7 L MCV 89.6 89.3 MCH 29.7 29.9 MCHC 33.2 33.5 RDW 15.3 15.4 Plt Count 215 156 D MPV 8.3 8.1 Absolute Neuts (auto) 12.2 H Neutrophils % 86.3 H Lymphocytes % 5.0 L D Monocytes % 8.5 Eosinophils % 0.0 Basophils % 0.2 Nucleated RBC % 0 Sodium 135 L Potassium 3.8 Chloride 101 Carbon Dioxide 24 Anion Gap 9 BUN 24.4 H Creatinine 1.4 H Est GFR (CKD-EPI)AfAm 56.16 Est GFR (CKD-EPI)NonAf 48.46 Random Glucose 127 H Calcium 8.8 Active Medications Generic Name Dose Route Start Last Admin Trade Name Freq PRN Reason Stop Dose Admin Acetaminophen 325 mg 05/19/19 16:58 05/19/19 17:16 Tylenol - PO 325 mg Q6H PRN Administration FEVER Acetaminophen/Codeine Phosphate 1 tab 05/19/19 16:58 Tylenol # 3 - PO Q6H PRN PAIN LEVEL 7 - 10 Atorvastatin Calcium 20 mg 05/18/19 22:00 05/19/19 22:05 Lipitor - PO 20 mg HS LAUREN Administration Docusate Sodium 100 mg 05/19/19 16:29 05/19/19 17:42 Colace - PO 100 mg BID PRN Administration CONSTIPATION Lactated Ringer's 1,000 mls @ 50 mls/hr 05/20/19 10:15 05/20/19 10:15 Lactated Ringers Solution IV 50 mls/hr ASDIR LAUREN Administration Melatonin 3 mg 05/19/19 22:00 05/19/19 22:05 Melatonin PO 3 mg HS LAUREN Administration Metoprolol Succinate 200 mg 05/20/19 10:00 05/20/19 09:47 Toprol Xl - PO 200 mg DAILY LAUREN Administration Ondansetron HCl 4 mg 05/18/19 11:07 05/19/19 05:35 Zofran Injection IVPUSH 4 mg Q6H PRN Administration NAUSEA AND/OR VOMITING Polyethylene Glycol 17 gm 05/19/19 10:00 05/20/19 09:47 Miralax (For Daily Use) - PO 17 gm DAILY LAUREN Administration Sacubitril/Valsartan 1 tab 05/18/19 22:00 05/20/19 09:48 Entresto 97 Mg-103 Mg Tablet PO 1 tab BID LAUREN Administration Senna 1 tab 05/18/19 22:00 05/19/19 22:05 Senna - PO 1 tab HS LAUREN Administration ASSESSMENT/PLAN: Problem List - Problems (1) S/p nephrectomy Assessment/Plan: On ancef for prophylactic abx Monitor vitals, daily cbc/cmp, monitor renal function and urinary output, ames removed today and on a voiding trial. post op care: bowel regimen, incentive spriometer, early ambulation and pain control repeat cbc in a.m. Code(s): Z90.5 - ACQUIRED ABSENCE OF KIDNEY (2) Afib Assessment/Plan: eliquis on hold s/p surgery on toprol resume per surgery Code(s): I48.91 - UNSPECIFIED ATRIAL FIBRILLATION (3) Systolic CHF Assessment/Plan: monitor bp on entresto, toprol on tele Code(s): I50.20 - UNSPECIFIED SYSTOLIC (CONGESTIVE) HEART FAILURE (4) DVT prophylaxis Assessment/Plan: scds ambulation Code(s): Z29.9 - ENCOUNTER FOR PROPHYLACTIC MEASURES, UNSPECIFIED Visit type - Emergency Visit Emergency Visit: Yes ED Registration Date: 05/18/19 Care time: The patient presented to the Emergency Department on the above date and was hospitalized for further evaluation of their emergent condition. - New Patient This patient is new to me today: No - Critical Care Critical Care patient: No - Discharge Referral Referred to [facility] Med P.C.: No
[2019-05-20] MEDS: ATORVASTATIN CA 20 MG TABLET (FP) PO SCH (21:17)
[2019-05-20] MEDS: SENNOSIDES 8.6MG TABLET (FP) PO SCH (21:18)
[2019-05-20] MEDS: MELATONIN 1 MG TABLET PO SCH (21:18)
[2019-05-21 06:24] LABS: BASO % 0.1 % (0-2.0); EOS % 0.1 % (0-4.5); HEMATOCRIT 33.2 % (35.4-49); HEMOGLOBIN 11.2 GM/dL (11.7-16.9); LYMPH % 5.1 % (8-40); MCH 29.9 pg (25.7-33.7); MCHC 33.7 g/dl (32.0-35.9); MEAN CELL VOLUME 88.5 fl (80-96); MEAN PLT VOLUME 8.2 fl (7.5-11.1); MONO % 9.3 % (3.8-10.2); NEUT % 85.4 % (42.8-82.8); PLATELET COUNT 154 K/MM3 (134-434); RBC 3.75 M/mm3 (4.00-5.60); RDW 15.2 % (11.9-15.9); WHITE BLOOD COUNT 14.7 K/mm3 (4.0-10.0)
[2019-05-21 06:59] LABS: ALBUMIN 2.5 g/dl (3.4-5.0); BILIRUBIN,TOTAL 3.1 mg/dL (0.2-1); BLOOD UREA NITROGEN 24.2 mg/dL (7-18); CALCIUM 8.5 mg/dL (8.5-10.1); CREATININE 1.2 mg/dL (0.55-1.3); MAGNESIUM 1.9 mg/dL (1.8-2.4); POTASSIUM 3.8 mmol/L (3.5-5.1); TOT PROT 5.5 g/dl (6.4-8.2)
[2019-05-21] MEDS: SACUBITRIL/VALSARTAN 97 MG-103 MG TABLET PO SCH ×2 (09:59→21:45)
[2019-05-21] MEDS: LACTATED RINGERS SOLUTION 1,000 ML IV SCH (10:00)
[2019-05-21] MEDS: POLYETHYLENE GLYCOL 3350 119 GM BTL PO SCH (10:00)
--- NOTE | 2019-05-21 10:20 | PN ---
Progress Note (short form) - Note Progress Note: POD#3 s/p Rt lap nephrectomy some nausea, poor appetite afebrile Abd soft voiding spontaneously-urine edelmira WBC 14.7, HCT 33, Creat 1.2 diet advanced, OOB ambulating, oral anagesics repeat labs in am-plan for d/c home tomorrow if HCT stable tomorrow then can restart Eliquus at that time
--- NOTE | 2019-05-21 10:51 | PN ---
Progress Note (short form) - Note Progress Note: s: no cp sob palps dizzy Current Medications Generic Name Dose Route Start Last Admin Trade Name Freq PRN Reason Stop Dose Admin Acetaminophen/Codeine Phosphate 1 tab 05/19/19 08:32 Tylenol # 3 - PO Q6H PRN FEVER Atorvastatin Calcium 20 mg 05/18/19 22:00 05/18/19 22:10 Lipitor - PO 20 mg HS LAUREN Administration Lactated Ringer's 1,000 mls @ 75 mls/hr 05/18/19 11:15 05/18/19 16:31 Lactated Ringers Solution IV Not Given ASDIR LAUREN Cefazolin Sodium 1 gm/ 50 mls @ 100 mls/hr 05/18/19 20:00 05/19/19 09:40 Dextrose IVPB 100 mls/hr Q8H-IV LAUREN Administration Metoprolol Succinate 200 mg 05/19/19 10:00 05/19/19 09:39 Toprol Xl - PO 200 mg DAILY LAUREN Administration Ondansetron HCl 4 mg 05/18/19 11:07 05/19/19 05:35 Zofran Injection IVPUSH 4 mg Q6H PRN Administration NAUSEA AND/OR VOMITING Polyethylene Glycol 17 gm 05/19/19 10:00 Miralax (For Daily Use) - PO DAILY [facility]UREN Sacubitril/Valsartan 1 tab 05/18/19 22:00 05/19/19 09:39 Entresto 97 Mg-103 Mg Tablet PO 1 tab BID LAUREN Administration Senna 1 tab 05/18/19 22:00 05/18/19 22:10 Senna - PO 1 tab HS LAUREN Administration Vital Signs Period Temp Pulse Resp BP Sys/Blanco Pulse Ox Last 24 Hr 97.3 F-98.5 F 70-81 18-20 109-168/57-89 96-98 nad no jvd irreg, s1s2, no r/g, +murmur no jaundice diaphoresis cta bl nl eff aao3 no le e/c/c abd nt nd pos bs pos dp pt no carotid bruits CBC, BMP 05/19/19 05:59 05/19/19 05:59 ecg: afib, rate ok, lvh with repol changes, no sig change prior cxr: chronic changes tele: afib, rate ok a/p: 78 m hx syst chf, ar/as, pafib, htn, hld here for elective kidney surgery for tumor. s/p R nephrectomy - manage per urology pafib: -cont bb for rate control -resume eliquis when clear per surgery AQUILES: -? sec to nephrectomy with impaired reserved in remaining kidney -continue same Entresto dose while monitoring creat, K -otherwise per , hospitalist syst chf: -euvolemic -cont bb, entresto as doing as/ar: -no s/sx chf -follows with dr gonzalez as outpatient--referral for AVR previously deferred -outpt f/u to continued hld: -cont statin htn: -cont home meds
--- NOTE | 2019-05-21 12:04 | PN ---
Physical Exam: SUBJECTIVE: Patient seen and examined at the bedside. in no acute distress, reports poor appetite and constipation. voiding spontaneously. OBJECTIVE: Patient is a 78 year old male with a significant past medical history of 6 hypertension, hld, afib who is s/p elective laparoscopic R radical nephrectomy for a right kidney mass. On exam, patient is awake, alert and in no acute distress. -------- pod#3 cbc stable, repeat in a.m. will add ensure with meals suppository for constipation repeat labs in am-plan for d/c home tomorrow and eliquis can be re started if hmg/hct stable per urology note Vital Signs Period Temp Pulse Resp BP Sys/Blanco Pulse Ox Last 24 Hr 97.6 F-99.3 F 85-92 18-20 116-140/58-85 93 GENERAL: The patient is awake, alert, and fully oriented, in no acute distress. HEAD: Normal with no signs of trauma. EYES: PERRL, extraocular movements intact, sclera anicteric, conjunctiva clear. No ptosis. ENT: Ears normal, nares patent, oropharynx clear without exudates, moist mucous membranes. NECK: Trachea midline, full range of motion, supple. LUNGS: Breath sounds equal, clear to auscultation bilaterally, no wheezes HEART: Regular rate and rhythm ABDOMEN: surgical abdominal dressing c/d/i EXTREMITIES: no edema. NEUROLOGICAL: Normal speech, gait not observed. PSYCH: Normal mood, normal affect. Laboratory Results - last 24 hr 05/21/19 05/21/19 05:40 05:40 WBC 14.7 H RBC 3.75 L Hgb 11.2 L Hct 33.2 L MCV 88.5 MCH 29.9 MCHC 33.7 RDW 15.2 Plt Count 154 MPV 8.2 Absolute Neuts (auto) 12.6 H Neutrophils % 85.4 H Lymphocytes % 5.1 L Monocytes % 9.3 Eosinophils % 0.1 D Basophils % 0.1 Nucleated RBC % 0 Sodium 135 L Potassium 3.8 Chloride 101 Carbon Dioxide 27 Anion Gap 7 L BUN 24.2 H Creatinine 1.2 Est GFR (CKD-EPI)AfAm 67.67 Est GFR (CKD-EPI)NonAf 58.39 Random Glucose 126 H Calcium 8.5 Magnesium 1.9 Total Bilirubin 3.1 H AST 25 ALT 16 Alkaline Phosphatase 52 Total Protein 5.5 L Albumin 2.5 L Active Medications Generic Name Dose Route Start Last Admin Trade Name Freq PRN Reason Stop Dose Admin Acetaminophen 325 mg 05/19/19 16:58 05/19/19 17:16 Tylenol - PO 325 mg Q6H PRN Administration FEVER Acetaminophen/Codeine Phosphate 1 tab 05/19/19 16:58 Tylenol # 3 - PO Q6H PRN PAIN LEVEL 7 - 10 Atorvastatin Calcium 20 mg 05/18/19 22:00 05/20/19 21:17 Lipitor - PO 20 mg HS LAUREN Administration Docusate Sodium 100 mg 05/19/19 16:29 05/19/19 17:42 Colace - PO 100 mg BID PRN Administration CONSTIPATION Lactated Ringer's 1,000 mls @ 50 mls/hr 05/20/19 10:15 05/21/19 10:00 Lactated Ringers Solution IV 50 mls/hr ASDIR LAUREN Administration Melatonin 3 mg 05/19/19 22:00 05/20/19 21:18 Melatonin PO 3 mg HS LAUREN Administration Metoprolol Succinate 200 mg 05/20/19 10:00 05/21/19 09:59 Toprol Xl - PO 200 mg DAILY LAUREN Administration Ondansetron HCl 4 mg 05/18/19 11:07 05/19/19 05:35 Zofran Injection IVPUSH 4 mg Q6H PRN Administration NAUSEA AND/OR VOMITING Polyethylene Glycol 17 gm 05/19/19 10:00 05/21/19 10:00 Miralax (For Daily Use) - PO 17 gm DAILY LAUREN Administration Sacubitril/Valsartan 1 tab 05/18/19 22:00 05/21/19 09:59 Entresto 97 Mg-103 Mg Tablet PO 1 tab BID LAUREN Administration Senna 1 tab 05/18/19 22:00 05/20/19 21:18 Senna - PO 1 tab HS LAUREN Administration ASSESSMENT/PLAN: Problem List - Problems (1) S/p nephrectomy Assessment/Plan: POD #3 Right lap nephrectomy s/p post op antibiotics Monitor vitals, daily cbc/cmp, monitor renal function and urinary output, ames removed today and on a voiding trial. post op care: bowel regimen, incentive spriometer, early ambulation and pain control ames removed by surgery, no difficulty voiding. repeat cbc in a.m. Code(s): Z90.5 - ACQUIRED ABSENCE OF KIDNEY (2) Afib Assessment/Plan: eliquis on hold s/p surgery, restart in a.m. if hmg/hct stable. on toprol resume per surgery Code(s): I48.91 - UNSPECIFIED ATRIAL FIBRILLATION (3) Systolic CHF Assessment/Plan: monitor bp on entresto, toprol on tele Code(s): I50.20 - UNSPECIFIED SYSTOLIC (CONGESTIVE) HEART FAILURE (4) DVT prophylaxis Assessment/Plan: scds ambulation Code(s): Z29.9 - ENCOUNTER FOR PROPHYLACTIC MEASURES, UNSPECIFIED Visit type - Emergency Visit Emergency Visit: Yes ED Registration Date: 05/18/19 Care time: The patient presented to the Emergency Department on the above date and was hospitalized for further evaluation of their emergent condition. - New Patient This patient is new to me today: No - Critical Care Critical Care patient: No - Discharge Referral Referred to [facility] Med P.C.: No
[2019-05-21] MEDS ORDERED: BISACODYL 10 MG SUPP.RECT RC ONE (12:06)
--- NOTE | 2019-05-21 15:58 | PATH ---
Surgical Pathology Report Patient Name: JON ALFARO [facility]. Rec. #: [id number] /Age/Gender: 1940 (Age: 78) / M Account: [id number] Location: 4 W TELEMETRY U Taken: 05/18/2019 Received: 05/18/2019 Reported: 05/21/2019 Physicians: Marky Garza M.D. 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 TUMOR LOCATED AT MIDDLE PORTION. TUMOR FOCALLY EXTENDS INTO PERINEPHRIC TISSUE. NO TUMOR NECROSIS IDENTIFIED. NO LYMPHOVASCULAR INVASION IDENTIFIED. NO SARCOMATOID OR RHABDOID FEATURES IDENTIFIED SURGICAL MARGINS ARE NEGATIVE. RENAL PARENCHYMA ADJACENT FROM TUMOR SHOWS CHRONIC INFLAMMATION; REMAINDER OF RENAL PARENCHYMA SHOWS NO SIGNIFICANT PATHOLOGIC FINDINGS. AJCC (TNM) STAGE (8TH ED): pT3a pNx. SEE CASE SUMMARY BELOW. Comment: Findings discussed with Dr. Garza. Comments Surgical Pathology Cancer Case Summary AJCC TNM Stage, 8th Edition Procedure _X__Laparoscopic radical nephrectomy Specimen Laterality _X_ Right Tumor Site _X_ Middle portion Tumor Size (gross measurement) Greatest dimension (centimeters): 7.5 cm Additional dimensions (centimeters): 5.8 x 5 cm Tumor Focality _X_ Unifocal Histologic Type _X_ Clear cell renal cell carcinoma Sarcomatoid Features _X_ Not identified Rhabdoid Features _X_ Not identified Histologic Grade (WHO / ISUP Grade) _X__ G3: Nucleoli conspicuous and eosinophilic at 100x magnification Tumor Necrosis _X_ Not identified Tumor Extension _X_ Tumor extension into perinephric tissue (beyond renal capsule) Margins _X_ Uninvolved by invasive carcinoma Lymphovascular Invasion (excluding renal vein and its segmental branches and inferior vena cava) _X_ Not identified Regional Lymph Nodes _X_ No lymph nodes submitted or found Pathologic Stage Classification (pTNM, AJCC 8th Edition) Primary Tumor (pT) _X_ pT3a: Tumor extends into the renal vein or its segmental branches, or invades the pelvicalyceal system, or invades perirenal and/or renal sinus fat but not beyond Gerota's fascia Regional Lymph Nodes (pN) _X_ pNX: Regional lymph nodes cannot be assessed Pathologic Findings in Nonneoplastic Kidney _X_ Other (specify): Chronic inflammation on renal parenchyma adjacent tumor; remainder of parenchyma shows no significant pathologic findings Electronically Signed Constanza Escalante M.D. Addendum Reported: 05/22/2019 Addendum Diagnosis PAS stain utilized to evaluate non-neoplastic renal parenchyma and supports the diagnosis. Constanza Escalante M.D. Gross Description Received in formalin labeled "right kidney," is a 688 g, 12.0 x 6.5 x 6.5 cm nephrectomy specimen with a 2.5 cm in length portion of ureter attached. There is a 1 cm in length portion of renal vein and a 1 cm in length portion of renal artery attached. The outer capsule is intact and the specimen displays abundant attached perinephric fat. Sectioning reveals a 7.5 x 5.8 x 5.0 cm mcneal-yellow to red mass in the anterior middle portion of the kidney centrally between the upper and lower poles. The mass focally abuts the outer capsule. The renal pelvis displays a smooth, glistening mucosa and is clear of the mass. The renal vein appears clear of the mass. The remaining renal parenchyma is unremarkable. There is no adrenal gland identified. There are no lymph nodes identified. The perinephric fat is unremarkable. Auto Motor [employer]ic sections are submitted in 12 cassettes as follows: 1-vascular ureteral margins; 2-mass; 3-5-mass with inked outer capsule; 6-mass with outer capsule and surrounding perinephric fat; 7-mass to normal kidney parenchyma; 8-9-mass with renal pelvis and renal sinus 10-additional fundraising sale representative ureter; 11-uninvolved upper pole parenchyma; 12-uninvolved lower pole parenchyma. 05/19/2019 saudi05/19/2019
[2019-05-21] MEDS ORDERED: PT OWN MED DRAWER 7, Y5N ONE ×2 (18:36→21:43)
[2019-05-21] MEDS: SENNOSIDES 8.6MG TABLET (FP) PO SCH (21:44)
[2019-05-21] MEDS: ATORVASTATIN CA 20 MG TABLET (FP) PO SCH (21:44)
[2019-05-21] MEDS: MELATONIN 1 MG TABLET PO SCH (22:47)
[2019-05-22 07:01] LABS: BASO % 0.5 % (0-2.0); EOS % 1.2 % (0-4.5); HEMOGLOBIN 10.8 GM/dL (11.7-16.9); LYMPH % 7.2 % (8-40); MCHC 33.8 g/dl (32.0-35.9); MEAN CELL VOLUME 88.7 fl (80-96); MEAN PLT VOLUME 7.9 fl (7.5-11.1); MONO % 11.1 % (3.8-10.2); PLATELET COUNT 191 K/MM3 (134-434); RDW 15.1 % (11.9-15.9); WHITE BLOOD COUNT 12.3 K/mm3 (4.0-10.0)
[2019-05-22 07:27] LABS: ALBUMIN 2.2 g/dl (3.4-5.0); BILIRUBIN,TOTAL 2.5 mg/dL (0.2-1); BLOOD UREA NITROGEN 24.8 mg/dL (7-18); CALCIUM 8.4 mg/dL (8.5-10.1); CREATININE 1.2 mg/dL (0.55-1.3); POTASSIUM 3.6 mmol/L (3.5-5.1); TOT PROT 5.3 g/dl (6.4-8.2)
--- NOTE | 2019-05-22 08:01 | PN ---
Progress Note, Physician History of Present Illness: Patient is a 78 year old male with a significant past medical history of 6 hypertension, hld, afib who is s/p elective laparoscopic R radical nephrectomy for a right kidney mass. On exam, patient is awake, alert and in no acute distress. - Current Medication List Current Medications: Active Medications Acetaminophen (Tylenol -) 325 mg PO Q6H PRN PRN Reason: FEVER Last Admin: 05/19/19 17:16 Dose: 325 mg Acetaminophen/Codeine Phosphate (Tylenol # 3 -) 1 tab PO Q6H PRN PRN Reason: PAIN LEVEL 7 - 10 Atorvastatin Calcium (Lipitor -) 20 mg PO [facility] Last Admin: 05/21/19 21:44 Dose: 20 mg Docusate Sodium (Colace -) 100 mg PO BID PRN PRN Reason: CONSTIPATION Last Admin: 05/19/19 17:42 Dose: 100 mg Lactated Ringer's (Lactated Ringers Solution) 1,000 mls @ 50 mls/hr IV ASDIR [facility] Last Admin: 05/21/19 10:00 Dose: 50 mls/hr Melatonin (Melatonin) 3 mg PO [facility] Last Admin: 05/21/19 22:47 Dose: 3 mg Metoprolol Succinate (Toprol Xl -) 200 mg PO DAILY [facility] Last Admin: 05/21/19 09:59 Dose: 200 mg Ondansetron HCl (Zofran Injection) 4 mg IVPUSH Q6H PRN PRN Reason: NAUSEA AND/OR VOMITING Last Admin: 05/19/19 05:35 Dose: 4 mg Polyethylene Glycol (Miralax (For Daily Use) -) 17 gm PO DAILY [facility] Last Admin: 05/21/19 10:00 Dose: 17 gm Sacubitril/Valsartan (Entresto 97 Mg-103 Mg Tablet) 1 tab PO BID [facility] Last Admin: 05/21/19 21:45 Dose: 1 tab Senna (Senna -) 1 tab PO [facility] Last Admin: 05/21/19 21:44 Dose: 1 tab - Objective Vital Signs: Vital Signs Temperature 98.4 F 05/22/19 05:41 Pulse Rate 83 05/22/19 05:41 Respiratory Rate 20 05/22/19 05:41 Blood Pressure 153/84 05/22/19 05:41 O2 Sat by Pulse Oximetry (%) 94 L 05/21/19 21:00 Labs: CBC, BMP 05/22/19 06:25 05/22/19 06:25 Problem List - Problems (1) HTN (hypertension) Code(s): I10 - ESSENTIAL (PRIMARY) HYPERTENSION (2) HLD (hyperlipidemia) Code(s): E78.5 - HYPERLIPIDEMIA, UNSPECIFIED (3) History of nephrectomy, right Code(s): Z90.5 - ACQUIRED ABSENCE OF KIDNEY (4) Afib Code(s): I48.91 - UNSPECIFIED ATRIAL FIBRILLATION (5) Prophylactic measure Code(s): Z29.9 - ENCOUNTER FOR PROPHYLACTIC MEASURES, UNSPECIFIED
[2019-05-22 08:07] VITALS: BP 147/81; PULSE 84; TEMP 98.5
--- NOTE | 2019-05-22 08:09 | DS ---
Physical Exam: SUBJECTIVE: Patient seen and examined Patient is a 78 year old male with a significant past medical history of hypertension, hld, afib who is s/p elective laparoscopic R radical nephrectomy for a right kidney mass. On exam, patient is awake, alert and in no acute distress. Medically stable for discharge home OBJECTIVE: Vital Signs Period Temp Pulse Resp BP Sys/Blanco Pulse Ox Last 24 Hr 97.4 F-98.6 F 79-87 20-20 115-153/55-84 94-96 PHYSICAL EXAM GENERAL: The patient is awake, alert, and fully oriented, in no acute distress. HEAD: Normal with no signs of trauma. EYES: PERRL, extraocular movements intact, sclera anicteric, conjunctiva clear. No ptosis. ENT: Ears normal, nares patent, oropharynx clear without exudates, moist mucous membranes. NECK: Trachea midline, full range of motion, supple. LUNGS: Breath sounds equal, clear to auscultation bilaterally, no wheezes HEART: Regular rate and rhythm ABDOMEN: surgical abdominal dressing c/d/i EXTREMITIES: no edema. NEUROLOGICAL: Normal speech, gait not observed. PSYCH: Normal mood, normal affect. Laboratory Results - last 24 hr LABS Laboratory Results - last 24 hr 05/22/19 05/22/19 06:25 06:25 WBC 12.3 H RBC 3.60 L Hgb 10.8 L Hct 32.0 L MCV 88.7 MCH 30.0 MCHC 33.8 RDW 15.1 Plt Count 191 D MPV 7.9 Absolute Neuts (auto) 9.9 H Neutrophils % 80.0 Lymphocytes % 7.2 L D Monocytes % 11.1 H Eosinophils % 1.2 D Basophils % 0.5 D Nucleated RBC % 0 Sodium 135 L Potassium 3.6 Chloride 101 Carbon Dioxide 29 Anion Gap 5 L BUN 24.8 H Creatinine 1.2 Est GFR (CKD-EPI)AfAm 67.67 Est GFR (CKD-EPI)NonAf 58.39 Random Glucose 115 H Calcium 8.4 L Total Bilirubin 2.5 H AST 28 ALT 17 Alkaline Phosphatase 64 Total Protein 5.3 L Albumin 2.2 L HOSPITAL COURSE: Date of Admission:05/18/19 Date of Discharge: 05/22/19 (1) S/p nephrectomy Assessment/Plan: POD #4 Right lap nephrectomy s/p post op antibiotics Monitor vitals, daily cbc/cmp, monitor renal function and urinary output, ames removed and spontaneously voiding without difficulty post op care: bowel regimen, incentive spriometer, early ambulation and pain control ames removed by surgery, no difficulty voiding. cbc stable post-op Code(s): Z90.5 - ACQUIRED ABSENCE OF KIDNEY (2) Afib Assessment/Plan: eliquis held during edgardo-op phase. Ok to resume 1/4 c/w toprol Code(s): I48.91 - UNSPECIFIED ATRIAL FIBRILLATION (3) Systolic CHF Assessment/Plan: c/w entresto, toprol on dc Code(s): I50.20 - UNSPECIFIED SYSTOLIC (CONGESTIVE) HEART FAILURE (4) DVT prophylaxis Assessment/Plan: scds during stay. No chemical anticoagulation. Will resume eleiquis on dc ambulation Stable for discharge to home Minutes to complete discharge: 45 Discharge Summary Problems reviewed: Yes Reason For Visit: KIDNEY CANCER Current Active Problems Afib (Acute) DVT prophylaxis (Acute) HLD (hyperlipidemia) (Acute) HTN (hypertension) (Acute) History of nephrectomy, right (Acute) Prophylactic measure (Acute) S/p nephrectomy (Acute) Systolic CHF (Acute) Hospital Course: HOSPITAL COURSE: Date of Admission:05/18/19 Date of Discharge: 05/22/19 (1) S/p nephrectomy Assessment/Plan: POD #3 Right lap nephrectomy s/p post op antibiotics Monitor vitals, daily cbc/cmp, monitor renal function and urinary output, ames removed and spontaneously voiding without difficulty post op care: bowel regimen, incentive spriometer, early ambulation and pain control ames removed by surgery, no difficulty voiding. cbc stable post-op Code(s): Z90.5 - ACQUIRED ABSENCE OF KIDNEY (2) Afib Assessment/Plan: eliquis held during edgardo-op phase. Ok to resume 1/4 c/w toprol Code(s): I48.91 - UNSPECIFIED ATRIAL FIBRILLATION (3) Systolic CHF Assessment/Plan: c/w entresto, toprol on dc Code(s): I50.20 - UNSPECIFIED SYSTOLIC (CONGESTIVE) HEART FAILURE (4) DVT prophylaxis Assessment/Plan: scds during stay. No chemical anticoagulation. Will resume eleiquis on dc ambulation - Instructions Diet, Activity, Other Instructions: DISCHARGE YOUR VISIT You came to the hospital to have an elective laparoscopic R radical nephrectomy for a right kidney mass. There were no complications during the surgery. MEDICATIONS Please continue to take your home medications as prescribed. You can resume the eliquis tomorrow. There were no other changes DIET Continue your home diet ADDITIONAL CARE Please make an appointment to see your primary care provider, [address] Vaz for follow up when you get home. If you have any trouble voiding or if there is pure blood in your urine call your surgeons office-it is normal for your urine to be slightly pink. Increase you oral fluids and increase your activity as tolerated slowly. ADDITIONAL INFORMATION Please call 911 or come directly to the emergency department if you experience unusual headache, vision change, shortness of breath, chest pain, numbness, tingling, loss of alertness/awareness, loss of function, unusual bleeding or any alarming symptoms. Thank you for allowing me to care for you. Jadiel Riddle, [facility], [facility] [phone] Referrals: Marky Garza MD [Staff Physician] - 1 Week (call for appointment) - Home Medications Comprehensive Discharge Medication List: Ambulatory Orders Apixaban [Eliquis] 5 mg PO BID 03/19/19 Atorvastatin Ca [Lipitor] 20 mg PO DAILY 03/19/19 Metoprolol Succinate 200 mg PO DAILY 03/19/19 Sacubitril/Valsartan [Entresto 97 mg-103 mg Tablet] 1 tab PO BID 03/19/19 Problem List - Problems (1) HTN (hypertension) Code(s): I10 - ESSENTIAL (PRIMARY) HYPERTENSION (2) HLD (hyperlipidemia) Code(s): E78.5 - HYPERLIPIDEMIA, UNSPECIFIED (3) History of nephrectomy, right Code(s): Z90.5 - ACQUIRED ABSENCE OF KIDNEY (4) Afib Code(s): I48.91 - UNSPECIFIED ATRIAL FIBRILLATION (5) Prophylactic measure Code(s): Z29.9 - ENCOUNTER FOR PROPHYLACTIC MEASURES, UNSPECIFIED This patient is new to me today: Yes Date on this admission: 05/22/19 Emergency Visit: No Critical Care patient: No - Discharge Referral Referred to [facility] No
[2019-05-22] MEDS ORDERED: PT OWN MED DRAWER 7, Y5N ONE (08:31)
[2019-05-22] MEDS: SACUBITRIL/VALSARTAN 97 MG-103 MG TABLET PO SCH (09:42)
--- NOTE | 2019-05-22 10:03 | PN ---
Progress Note (short form) - Note Progress Note: POD#4 s/p Rt lap nephrectomy afebrile Abd soft voiding spontaneously-urine clear WBC 12, HCT 32, Creat 1.2 can d/c home today from standpoint can restart Eliquus tomorrow
--- NOTE | 2019-05-22 10:34 | PN ---
Progress Note (short form) - Note Progress Note: s: no cp sob palps dizzy Current Medications Generic Name Dose Route Start Last Admin Trade Name Freq PRN Reason Stop Dose Admin Acetaminophen 325 mg 05/19/19 16:58 05/19/19 17:16 Tylenol - PO 325 mg Q6H PRN Administration FEVER Acetaminophen/Codeine Phosphate 1 tab 05/19/19 16:58 Tylenol # 3 - PO Q6H PRN PAIN LEVEL 7 - 10 Apixaban 5 mg 05/23/19 10:00 Eliquis - PO BID LAUREN Atorvastatin Calcium 20 mg 05/18/19 22:00 05/21/19 21:44 Lipitor - PO 20 mg HS LAUREN Administration Docusate Sodium 100 mg 05/19/19 16:29 05/19/19 17:42 Colace - PO 100 mg BID PRN Administration CONSTIPATION Melatonin 3 mg 05/19/19 22:00 05/21/19 22:47 Melatonin PO 3 mg HS LAUREN Administration Metoprolol Succinate 200 mg 05/20/19 10:00 05/22/19 09:41 Toprol Xl - PO 200 mg DAILY LAUREN Administration Ondansetron HCl 4 mg 05/18/19 11:07 05/19/19 05:35 Zofran Injection IVPUSH 4 mg Q6H PRN Administration NAUSEA AND/OR VOMITING Polyethylene Glycol 17 gm 05/19/19 10:00 05/21/19 10:00 Miralax (For Daily Use) - PO 17 gm DAILY LAUREN Administration Sacubitril/Valsartan 1 tab 05/18/19 22:00 05/22/19 09:42 Entresto 97 Mg-103 Mg Tablet PO 1 tab BID LAUREN Administration Senna 1 tab 05/18/19 22:00 05/21/19 21:44 Senna - PO 1 tab HS LAUREN Administration Vital Signs Period Temp Pulse Resp BP Sys/Blanco Pulse Ox Last 24 Hr 97.4 F-98.6 F 79-87 20-20 115-153/55-84 94-96 nad no jvd irreg, s1s2, no r/g, +murmur no jaundice diaphoresis cta bl nl eff aao3 no le e/c/c abd nt nd pos bs pos dp pt no carotid bruits CBC, BMP 05/22/19 06:25 05/22/19 06:25 ecg: afib, rate ok, lvh with repol changes, no sig change prior cxr: chronic changes a/p: 78 m hx syst chf, ar/as, pafib, htn, hld here for elective kidney surgery for tumor. s/p R nephrectomy - manage per urology pafib: -cont bb for rate control -resume eliquis when clear per surgery AQUILES: -? sec to nephrectomy with impaired reserved in remaining kidney -continue same Entresto dose while monitoring creat, K -otherwise per , hospitalist syst chf: -euvolemic -cont bb, entresto as doing as/ar: -no s/sx chf -follows with dr gonzalez as outpatient--referral for AVR previously deferred -outpt f/u to continued hld: -cont statin htn: -cont home meds cardiac gee stable
[2019-05-23] MEDS ORDERED: APIXABAN 5 MG TABLET PO SCH (10:00)
== END 2019-05-22 11:50 | disposition home or self-care (01) | DRG 657 ==
LOC: JSAMEDAYSX 04:52 → J4W 15:00
PROVIDERS: ADMIT Urology; ATTEND Nurse Practitioner Acute Care
PROC: 0TT04ZZ Resection of Right Kidney, Percutaneous Endoscopic Approach (ICD-10-PCS; principal; 2019-05-18 07:30)
DX: D49.511 Neoplasm of unspecified behavior of right kidney (principal); I50.22 Chronic systolic (congestive) heart failure; N17.9 Acute kidney failure, unspecified; I48.0 Paroxysmal atrial fibrillation; E78.5 Hyperlipidemia, unspecified; I11.0 Hypertensive heart disease with heart failure; I35.0 Nonrheumatic aortic (valve) stenosis
CPT/HCPCS: 36415; 80048; 80053; 80076; 83735; 85025; 85027; 86850; 86900; 86901; 94760; 97116-GP; 97161-GP

== ENCOUNTER 2019-06-24 00:59 | Inpatient (IN) | payer OTHER ==
--- NOTE | 2019-06-24 01:15 | PDOC ---
History of Present Illness - General Stated Complaint: SURGICAL SITE INFECTION - History of Present Illness Initial Comments: 06/24/19 01:16 Mr. Jones is a 78 yo male w/ pmh of HTN, HLD, afib on eliquis, and recent nephrectomy 05/18 (admission to 05/22) for Rt kidney tumor (Dr. Garza, surgeon ) who presents for evaluation of 2 day history of R sided abdominal redness and 1 day history of fluid drainage. Patient reports he was watching television and noted his shirt was soaked. Denies any pain at this time however became concerned given his recent history. Also reports a significant smell from area. The patient denies chest pain, shortness of breath, headache and dizziness. Denies fever, chills, nausea, vomit, diarrhea and constipation. Denies dysuria, frequency, urgency and hematuria. Past History - Past Medical History Allergies/Adverse Reactions: Allergies Allergy/AdvReac Type Severity Reaction Status Date / Time amlodipine Allergy Severe Swelling Verified 06/24/19 01:30 Home Medications: Ambulatory Orders Atorvastatin Ca [Lipitor] 20 mg PO DAILY 03/19/19 Metoprolol Succinate 200 mg PO DAILY 03/19/19 Acetaminophen [Tylenol .Regular Strength -] 325 mg PO Q6H PRN tablet 05/22/19 Apixaban [Eliquis -] 5 mg PO BID tablet 05/22/19 Docusate Sodium [Colace -] 100 mg PO BID PRN capsule 05/22/19 Polyethylene Glycol 3350 [Miralax 119 gm Btl -] 17 gm PO DAILY #1 bottle Anemia: No Asthma: No Cancer: Yes (PROSTATE,renal) Cardiac Disorders: Yes ("WEAK HEART; ? LEAKY HEART VALVE") CVA: No COPD: No CHF: No Dementia: No Diabetes: No GI Disorders: No Disorders: Yes (BPH) HTN: Yes Hypercholesterolemia: Yes Liver Disease: No Seizures: No Thyroid Disease: No - Surgical History Abdominal Surgery: No Appendectomy: No Cardiac Surgery: No Cholecystectomy: No Lung Surgery: No Neurologic Surgery: No Orthopedic Surgery: No - Psycho Social/Smoking Cessation Hx Smoking History: Former smoker Have you smoked in the past 12 months: No If you are a former smoker, when did you quit?: 12 YEARS AGO Hx Alcohol Use: Yes (OCCASIONAL) Drug/Substance Use Hx: No Substance Use Type: Alcohol Hx Substance Use Treatment: No Review of Systems - Review of Systems Comments:: 06/24/19 01:23 GENERAL/CONSTITUTIONAL: No fever or chills. No weakness. HEAD, EYES, EARS, NOSE AND THROAT: No change in vision. No ear pain or discharge. No sore throat. CARDIOVASCULAR: No chest pain or shortness of breath RESPIRATORY: No cough, wheezing, or hemoptysis. GASTROINTESTINAL: +Right sided fluid drainage from surgical site w/ abdominal redness and smell. No nausea, vomiting, diarrhea or constipation. GENITOURINARY: No dysuria, frequency, or change in urination. MUSCULOSKELETAL: No joint or muscle swelling or pain. No neck or back pain. SKIN: No rash NEUROLOGIC: No headache, vertigo, loss of consciousness, or change in strength/ sensation. ENDOCRINE: No increased thirst. No abnormal weight change HEMATOLOGIC/LYMPHATIC: No anemia, easy bleeding, or history of blood clots. ALLERGIC/IMMUNOLOGIC: No hives or skin allergy. *Physical Exam - Physical Exam 06/24/19 01:23 GENERAL: Awake, alert, and fully oriented, in no acute distress HEAD: No signs of trauma, normocephalic, atraumatic EYES: PERRLA, EOMI, sclera anicteric, conjunctiva clear ENT: Auricles normal inspection, hearing grossly normal, nares patent, oropharynx clear without exudates. Moist mucosa NECK: Normal ROM, supple, no lymphadenopathy, JVD, or masses LUNGS: No distress, speaks full sentences, clear to auscultation bilaterally HEART: Regular rate and rhythm, normal S1 and S2, no murmurs, rubs or gallops, peripheral pulses normal and equal bilaterally. ABDOMEN: +large R abdominal erythema and serosanguinous drainage from surgical site. Soft, nontender, normoactive bowel sounds. No guarding, no rebound. No masses EXTREMITIES: Normal inspection, Normal range of motion, no edema. No clubbing or cyanosis. NEUROLOGICAL: Cranial nerves II through XII grossly intact. Normal speech, normal gait, no focal sensorimotor deficits SKIN: Warm, Dry, normal turgor, no rashes or lesions noted. ED Treatment Course - LABORATORY CBC & Chemistry Diagram: 06/24/19 02:24 06/24/19 02:24 Medical Decision Making - Medical Decision Making 06/24/19 01:24 Mr. Jones is a 78 yo male w/ pmh as described who presents for evaluation of symptoms concerning for infection vs. seroma vs. other post-op change. Patient exam significant for active serosanguinous fluid and impressive erythema around surgical site. Patient will be evaluated with infectious workup and dry CT-abdomen/pelvis. 06/24/19 03:[address] concerning for IMPRESSION: Moderate size right pleural effusion with basilar atelectasis or pneumonia. Suspected 9.5 cm abscess in the renal fossa and 5.3 cm right flank subcutaneous abscess. Small left renal stones. Questionable abdominal wall cellulitis 06/24/19 03:54 Patient covered with zosyn for infection. Cultures taken. Urology consulted. Patient will be admitted for further care. 06/24/19 04:18 Patient admitted to hospitalist for further evaluation. Discharge - Discharge Information Problems reviewed: Yes Clinical Impression/Diagnosis: Abdominal wall cellulitis, Abdominal fluid collection Condition: Fair - Admission Yes - Follow up/Referral Referrals: Kingston Bailey MD [Primary Care Provider] - - Patient Discharge Instructions - Post Discharge Activity
[2019-06-24] MEDS ORDERED: PIPERACILLIN/TAZOB 3.375 GM 3.375 GM in DEXTROSE 5%-WATER - 50 ML IVPB ONE (01:27)
--- NOTE | 2019-06-24 01:28 | PDOC ---
Attending Attestation - Resident Resident Name: Juancarlos Lomas - ED Attending Attestation I have performed the following: I have examined & evaluated the patient, The case was reviewed & discussed with the resident, I agree w/resident's findings & plan - HPI HPI: 06/24/19 01:27 see resident hpi 06/24/19 01:27 - Physicial Exam PE: 06/24/19 01:27 see resident exam - Medical Decision Making 06/24/19 01:27 78-year-old male status post right nephrectomy secondary to malignancy now with redness and draining from the right abdominal wound Plan for sepsis evaluation, antibiotics and urology consultation/admission
[2019-06-24] MEDS ORDERED: PIPERACILLIN/TAZOB 3.375 GM 3.375 GM/50 ML BAG IVPB ONE ×2 (02:40→08:37)
[2019-06-24 02:45] LABS: BASO % 0.4 % (0-2.0); EOS % 0.3 % (0-4.5); HEMATOCRIT 31.2 % (35.4-49); HEMOGLOBIN 10.1 GM/dL (11.7-16.9); MCH 28.1 pg (25.7-33.7); MCHC 32.5 g/dl (32.0-35.9); MEAN CELL VOLUME 86.4 fl (80-96); MEAN PLT VOLUME 8.6 fl (7.5-11.1); NEUT % 89.3 % (42.8-82.8); PLATELET COUNT 306 K/MM3 (134-434); RBC 3.61 M/mm3 (4.00-5.60); RDW 16.1 % (11.9-15.9); WHITE BLOOD COUNT 27.9 K/mm3 (4.0-10.0)
[2019-06-24 02:47] LABS: VENOUS PC02 34.5 mmHg (38-52); VENOUS PH 7.42 (7.31-7.41)
[2019-06-24 02:51] LABS: VENOUS PO2 < 49 mmHg (28-48)
[2019-06-24 03:40] LABS: ALBUMIN 1.4 g/dl (3.4-5.0); ALK PHOS 73 U/L (45-117); ANION GAP 8 MMOL/L (8-16); BILIRUBIN,TOTAL 0.9 mg/dL (0.2-1); BLOOD UREA NITROGEN 32.4 mg/dL (7-18); CALCIUM 7.9 mg/dL (8.5-10.1); CHLORIDE 107 mmol/L (98-107); CO2 20 mmol/L (21-32); CREATININE 1.2 mg/dL (0.55-1.3); GLUCOSE,RANDOM 142 mg/dL (74-106); SGOT/AST 46 U/L (15-37); SGPT/ALT 30 U/L (13-61); SODIUM 136 mmol/L (136-145); TOT PROT 6.2 g/dl (6.4-8.2)
--- NOTE | 2019-06-24 03:50 | HP ---
CHIEF COMPLAINT: Leaking Surgical site PCP: Dr Kingston Bailey HISTORY OF PRESENT ILLNESS: Pt is a 78 y/o M with a significant past medical history of atrial fibrillation (on Eliquis), HTN, HFrEF (30%) HLD, renal cell carcinoma who presented to [facility] due to drainage from his surgical site. Pt endorses that he recently underwent a right sided radical laparoscopic nephrectomy in April of last year. Pt states that this was for a mass in his right kidney. Surgery was uneventful. Pt also endorses that he has prostate cancer and is receiving hormone therapy injection. Earlier yesterday evening, pt was watching television when he began to feel his shirt become wet. Patient also states he smelt a foul odor. Denies any trauma or digital manipulation to the area. Pt denies any fever, chills, nausea/vomiting, or weight loss. PMH HTN, Afib, HLD, RCC SurgHx- Right Radical Nephrectomy Social- Denies - [place] Allergies; [facility] ER course was notable for: (1) WBC 27.9 (2) CTAP---> Moderate Right sided Pleural effusion w/ basilar atelectasis/ pneumonia. 9.5 cm abscess in renal fossa. 5.3 cm right flank subcutaneous abscess. Questionable abdominal wall cellulites. (3) Lactic 2.2 HOME MEDICATIONS: Home Medications Medication Instructions Recorded Atorvastatin Ca [Lipitor] 20 mg PO DAILY 03/19/19 Metoprolol Succinate 200 mg PO DAILY 03/19/19 Acetaminophen [Tylenol .Regular 325 mg PO Q6H PRN tablet 05/22/19 Strength -] Apixaban [Eliquis -] 5 mg PO BID tablet 05/22/19 Docusate Sodium [Colace -] 100 mg PO BID PRN capsule 05/22/19 Polyethylene Glycol 3350 [Miralax 17 gm PO DAILY #1 bottle 05/22/19 119 gm Btl -] REVIEW OF SYSTEMS CONSTITUTIONAL: Absent: fever, chills, diaphoresis, generalized weakness, malaise, loss of appetite, weight change HEENT: Absent: rhinorrhea, nasal congestion, throat pain, throat swelling, difficulty swallowing, mouth swelling, ear pain, eye pain, visual changes CARDIOVASCULAR: Absent: chest pain, syncope, palpitations, irregular heart rate, lightheadedness , peripheral edema RESPIRATORY: Absent: cough, shortness of breath, dyspnea with exertion, orthopnea, wheezing, stridor, hemoptysis GASTROINTESTINAL: Absent: abdominal pain, abdominal distension, nausea, vomiting, diarrhea, constipation, melena, hematochezia GENITOURINARY: Absent: dysuria, frequency, urgency, hesitancy, hematuria, flank pain, genital pain MUSCULOSKELETAL: Absent: myalgia, arthralgia, joint swelling, back pain, neck pain SKIN: PRESENT rash abdomen HEMATOLOGIC/IMMUNOLOGIC: Absent: easy bleeding, easy bruising, lymphadenopathy, frequent infections ENDOCRINE: Absent: unexplained weight gain, unexplained weight loss, heat intolerance, cold intolerance NEUROLOGIC: Absent: headache, focal weakness or paresthesias, dizziness, unsteady gait, seizure, mental status changes, bladder or bowel incontinence PSYCHIATRIC: Absent: anxiety, depression, suicidal or homicidal ideation, hallucinations. PHYSICAL EXAMINATION Vital Signs - 24 hr 06/24/19 01:00 Temperature 97.6 F Pulse Rate 109 H Respiratory 20 Rate Blood Pressure 98/65 O2 Sat by Pulse 97 Oximetry (%) GENERAL: NAD AAOx3 HEAD: Normal with no signs of trauma. EYES: EOMI Sclera Clear EARS, NOSE, THROAT: MMM NECK: Normal range of motion, supple without lymphadenopathy, JVD, or masses. LUNGS: Clear. No crackles or wheezing HEART: Irregularly irregular + 1/6 murmur RUSB ABDOMEN: Erythema and warmth right sided abdomen. pitting edema as well. Purulent drainage from Laparascopic incision site. MUSCULOSKELETAL: Normal range of motion at all joints. No bony deformities or tenderness. No CVA tenderness. UPPER EXTREMITIES: 2+ pulses, warm, well-perfused. No cyanosis. No clubbing. No peripheral edema. LOWER EXTREMITIES: 1+ edema b/l NEUROLOGICAL: Cranial nerves II-XII intact. Normal speech. PSYCHIATRIC: Cooperative. Good eye contact. Appropriate mood and affect. SKIN: Abdominal wall erythema and warmth Laboratory Results - last 24 hr 06/24/19 06/24/19 06/24/19 02:00 02:24 02:24 WBC 27.9 H RBC 3.61 L Hgb 10.1 L Hct 31.2 L MCV 86.4 MCH 28.1 MCHC 32.5 RDW 16.1 H Plt Count 306 D MPV 8.6 Absolute Neuts (auto) 24.9 H Neutrophils % 89.3 H Lymphocytes % 5.0 L D Monocytes % 5.0 Eosinophils % 0.3 Basophils % 0.4 Nucleated RBC % 0 VBG pH 7.42 H POC VBG pCO2 34.5 L POC VBG pO2 < 49 H VBG HCO3 22.2 L VBG O2 Sat (Wai) 75.9 VBG Base Excess -1.3 Sodium 136 Potassium 5.0 Chloride 107 Carbon Dioxide 20 L Anion Gap 8 BUN 32.4 H Creatinine 1.2 Est GFR (CKD-EPI)AfAm 67.67 Est GFR (CKD-EPI)NonAf 58.39 Random Glucose 142 H Lactic Acid Calcium 7.9 L Total Bilirubin 0.9 AST 46 H ALT 30 Alkaline Phosphatase 73 Troponin I < 0.02 Total Protein 6.2 L Albumin 1.4 L 06/24/19 02:24 WBC RBC Hgb Hct MCV MCH MCHC RDW Plt Count MPV Absolute Neuts (auto) Neutrophils % Lymphocytes % Monocytes % Eosinophils % Basophils % Nucleated RBC % VBG pH POC VBG pCO2 POC VBG pO2 VBG HCO3 VBG O2 Sat (Wai) VBG Base Excess Sodium Potassium Chloride Carbon Dioxide Anion Gap BUN Creatinine Est GFR (CKD-EPI)AfAm Est GFR (CKD-EPI)NonAf Random Glucose Lactic Acid 2.2 H* Calcium Total Bilirubin AST ALT Alkaline Phosphatase Troponin I Total Protein Albumin ASSESSMENT/PLAN: Pt is a 78 y/o M with a significant past medical history of atrial fibrillation (on Eliquis), HTN, HLD, HFrEF, renal cell carcinoma who presented to [facility] due to drainage from his surgical site. # Renal Fossa Abscess/Right Flank Subcutaneopus Abscess - As seen on CTAP. Pt s/p right sided laparoscopic radical nephrectomy. -WBC 27.9, HR 109, Lactic 2.2. Patient does meet Sepsis criteria with a known source. -Received 1 dose of Zosyn in ED. Will continue on Zosyn 3.375 Q6H. Also will administer 1 time dose of Vancomycin in light of recent hospitalization. -Infectious Disease Consult. -Urology Consult -Consider I.R for possible drainage of abscess #R Sided Pleural effusion -Pt Underwent Thoracentesis March last year. May possibly benefit from another one. -Pulm Consult -Follow up imaging to assess for progression #HFrEF -Continue with Metoprolol. -Entresto per Cardiology. Patient has not been restarted on medication. #Atrial Fibrillation -Continue w/ Eliquis #HTN -Resume home meds #HLD -Resume Home meds #FEN -LR@100 -Monitor Electrolytes -Sodium Controlled DVT ppx: -On Eliquis #Dispo -Tele Visit type - Emergency Visit Emergency Visit: Yes ED Registration Date: 06/24/19 Care time: The patient presented to the Emergency Department on the above date and was hospitalized for further evaluation of their emergent condition. - New Patient This patient is new to me today: Yes Date on this admission: 06/24/19 - Critical Care Critical Care patient: No ATTENDING PHYSICIAN STATEMENT I saw and evaluated the patient. I reviewed the resident's note and discussed the case with the resident. I agree with the resident's findings and plan as documented. SUBJECTIVE: OBJECTIVE: ASSESSMENT AND PLAN:
[2019-06-24] MEDS: LACTATED RINGERS SOLUTION 1,000 ML/1,000 ML INFUS.BAG IV SCH (04:13)
--- NOTE | 2019-06-24 04:51 | PN ---
Teaching Attending Note Name of Resident: Bull Ward ATTENDING PHYSICIAN STATEMENT I saw and evaluated the patient. I reviewed the resident's note and discussed the case with the resident. I agree with the resident's findings and plan as documented. SUBJECTIVE: This is a 78 year old man with a history of HTN, hyperlipidemia, chronic systolic heart failure, atrial fib, , AR, prostate cancer, right nephrectomy 05/18/19 for renal cell carcinoma who comes to the ED today complaining of foul smelling drainage from the right side of his abdomen. He says that since the nephrectomy, he has been feeling weak and fatigued with no appetite. Tonight while watching television, he noted an odor and that his hermelinda shirt was soaked on the right side. He says that he had noticed some swelling of the right side of his abdomen after surgery. His last visit with Dr. Garza was about 2 weeks after the surgery. He says he was told everything was ok and he received a hormone injection for prostate cancer. He does not think he has been having fevers, but upon further questioning, he notes that since the last hormone injection, he has been having sweats which he had not had after previous treatments. OBJECTIVE: Vital Signs Period Temp Pulse Resp BP Sys/Blanco Pulse Ox Last 24 Hr 97.6 F 109 20 98/65 97-97 HEART: Irregular, tachycardic LUNGS: Clear with decreased BS at right base ABDOMEN: Obese, soft, non-distended, non-tender, normal BS. Extensive erythema and induration with foul smelling clear yellow drainage extending from right flank around to the right side of the abdomen EXTREMITIES: Trace edema Laboratory Tests 06/24/19 06/24/19 06/24/19 02:00 02:24 02:24 WBC 27.9 H RBC 3.61 L Hgb 10.1 L Hct 31.2 L MCV 86.4 MCH 28.1 MCHC 32.5 RDW 16.1 H Plt Count 306 D MPV 8.6 Absolute Neuts (auto) 24.9 H Neutrophils % 89.3 H Lymphocytes % 5.0 L D Monocytes % 5.0 Eosinophils % 0.3 Basophils % 0.4 Nucleated RBC % 0 VBG pH 7.42 H POC VBG pCO2 34.5 L POC VBG pO2 < 49 H VBG HCO3 22.2 L VBG O2 Sat (Wai) 75.9 VBG Base Excess -1.3 Sodium 136 Potassium 5.0 Chloride 107 Carbon Dioxide 20 L Anion Gap 8 BUN 32.4 H Creatinine 1.2 Est GFR (CKD-EPI)AfAm 67.67 Est GFR (CKD-EPI)NonAf 58.39 Random Glucose 142 H Lactic Acid Calcium 7.9 L Total Bilirubin 0.9 AST 46 H ALT 30 Alkaline Phosphatase 73 Troponin I < 0.02 Total Protein 6.2 L Albumin 1.4 L 06/24/19 02:24 WBC RBC Hgb Hct MCV MCH MCHC RDW Plt Count MPV Absolute Neuts (auto) Neutrophils % Lymphocytes % Monocytes % Eosinophils % Basophils % Nucleated RBC % VBG pH POC VBG pCO2 POC VBG pO2 VBG HCO3 VBG O2 Sat (Wai) VBG Base Excess Sodium Potassium Chloride Carbon Dioxide Anion Gap BUN Creatinine Est GFR (CKD-EPI)AfAm Est GFR (CKD-EPI)NonAf Random Glucose Lactic Acid 2.2 H* Calcium Total Bilirubin AST ALT Alkaline Phosphatase Troponin I Total Protein Albumin Home Medications Medication Instructions Recorded Atorvastatin Ca [Lipitor] 20 mg PO DAILY 03/19/19 Metoprolol Succinate 200 mg PO DAILY 03/19/19 Acetaminophen [Tylenol .Regular 325 mg PO Q6H PRN tablet 05/22/19 Strength -] Apixaban [Eliquis -] 5 mg PO BID tablet 05/22/19 Docusate Sodium [Colace -] 100 mg PO BID PRN capsule 05/22/19 Polyethylene Glycol 3350 [Miralax 17 gm PO DAILY #1 bottle 05/22/19 119 gm Btl -] ASSESSMENT AND PLAN: This is a 78 year old man with a history of HTN, hyperlipidemia, chronic systolic heart failure, atrial fib, , AR, prostate cancer, right nephrectomy 05/18/19 for renal cell carcinoma who presented to the ED with foul smelling drainage from the right side of his abdomen. 1. Severe sepsis (leukocytosis, tachycardia, lactic acid 2.2) secondary to right renal fossa abscess, subcutaneous right flank abscess with extensive abdominal wall cellulitis - Zosyn, vancomycin - Cautious IV hydration given history of systolic heart failure - Recheck lactic acid after IV fluid started - ID, consults; ? IR consult for abscess drainage 2. Moderate right pleural effusion, recurrent - Patient had right thoracentesis with removal of 1200 cc of fluid on - fluid negative for malignant cells - Currently asymptomatic - Pulmonary consult 3. Anemia - Hgb has been decreasing from 14.6 preop to 10.1 today - Possibly secondary to postoperative blood loss, sepsis - Check iron studies 4. Renal cell carcinoma - s/p right nephrectomy 05/18/19 5. HTN - Continue Toprol XL 6. Hyperlipidemia - Continue Lipitor 7. Atrial fib, permanent - Rate increased in setting of sepsis - Monitor on telemetry - Continue Toprol XL - Hold Eliquis as abscess drainage will likely be necessary 8. Chronic systolic heart failure - Stable - Continue Entresto - Cautious IV fluids and monitor for signs of fluid overload 9. Aortic stenosis/regurgitation 10. Prostate cancer
[2019-06-24] MEDS ORDERED: VANCOMYCIN 1 GRAM (PRE-DOCKED) 1,000 MG/250 ML BAG IVPB ONE ×2 (05:00→06:00)
[2019-06-24 05:24] LABS: SMUDGE CELLS FEW
[2019-06-24 05:25] LABS: PLATELET ESTIMATE ADEQUATE; TOXIC GRANULATION FEW
[2019-06-24] MEDS ORDERED: DOCUSATE SODIUM 100 MG CAPSULE (FP) PO PRN (05:35)
[2019-06-24] MEDS ORDERED: HEPARIN NA (PORCINE) 5,000 UNITS/ML 1ML VIAL SQ SCH (06:00)
[2019-06-24 07:00] LABS: HEMATOCRIT 29.6 % (35.4-49); HEMOGLOBIN 9.7 GM/dL (11.7-16.9); MCH 28.5 pg (25.7-33.7); MCHC 32.8 g/dl (32.0-35.9); MEAN CELL VOLUME 86.9 fl (80-96); MEAN PLT VOLUME 7.1 fl (7.5-11.1); PLATELET COUNT 283 K/MM3 (134-434); RBC 3.41 M/mm3 (4.00-5.60); RDW 16.3 % (11.9-15.9)
[2019-06-24 07:25] LABS: ALBUMIN 1.4 g/dl (3.4-5.0); BLOOD UREA NITROGEN 32.3 mg/dL (7-18); CREATININE 1.1 mg/dL (0.55-1.3); MAGNESIUM 2.1 mg/dL (1.8-2.4); PHOSPHOROUS 3.6 mg/dL (2.5-4.9); POTASSIUM 4.3 mmol/L (3.5-5.1); TOT PROT 5.3 g/dl (6.4-8.2)
[2019-06-24 07:39] LABS: INR 2.17 (0.83-1.09); PROTHROMBIN TIME (PATIENT) 25.8 SEC (9.7-13.0)
[2019-06-24] MEDS: PIPERACILLIN/TAZOB 3.375 GM 3.375 GM in DEXTROSE 5%-WATER - 50 ML IVPB SCH ×3 (08:36→22:29)
--- NOTE | 2019-06-24 09:24 | PN ---
Physical Exam: SUBJECTIVE: Patient seen and examined in the ED awaiting bed assignment. denies chest pain or shortness of breath. Patient is awake, alert and in no acute distress. denies pain or discomfort. Noticed a foul odor and drainage of right lower abdomen on Saturday, but not before Saturday. He denies fever or chills at home. No issues with urination. No nausea or vomiting, ate breakfast. He had a BM this a.m. OBJECTIVE: Patient is a 78 year old male with a significant past medical history of hypertension, hld, afib who is s/p elective laparoscopic R radical nephrectomy on 05/18/2019 for a right kidney mass. Patient presents to the ED on 06/23/2019 for right lower abdomen cellulitis, with foul smelling drainage of surgical site. Discussed with ICU attending and patient is not an ICU candidate at this time. plan: incentive spirometer pain management await further recommendations from urology, may need IR for drainage monitor urine output ID for antibiotics vital signs q 4 [id number] send urine culture pulmonary consult for right pleural effusion imaging: abd ct: pending Vital Signs Period Temp Pulse Resp BP Sys/Blanco Pulse Ox Last 24 Hr 97.6 F 109 20 98/65 97-97 GENERAL: The patient is awake, alert, and fully oriented, in no acute distress. denies pain or discomfort. HEAD: Normal with no signs of trauma. EYES: PERRL, extraocular movements intact, sclera anicteric, conjunctiva clear. No ptosis. ENT: Ears normal, nares patent, oropharynx clear without exudates, moist mucous membranes. NECK: Trachea midline, full range of motion, supple. LUNGS: Breath sounds equal, decreased at right base HEART: Regular rate and rhythm ABDOMEN: anterior abdomen around umbilicus surgical sites without redness or erythema. right lower abdomen incision with surrounding redness, that extends from the right lower abdomen to right flank. + induration of tissue, yellow foul drainage. hot to touch. tender to touch. EXTREMITIES: 2+ pulses, warm, well-perfused, no edema. NEUROLOGICAL: Normal speech, gait not observed. Laboratory Results - last 24 hr 06/24/19 06/24/19 06/24/19 02:00 02:24 02:24 WBC 27.9 H RBC 3.61 L Hgb 10.1 L Hct 31.2 L MCV 86.4 MCH 28.1 MCHC 32.5 RDW 16.1 H Plt Count 306 D MPV 8.6 Absolute Neuts (auto) 24.9 H Total Counted 100 Neutrophils % 89.3 H Neutrophils % (Manual) 77.0 Band Neutrophils % 11.0 Lymphocytes % 5.0 L D Lymphocytes % (Manual) 9.0 Monocytes % 5.0 Monocytes % (Manual) 3 L Eosinophils % 0.3 Basophils % 0.4 Nucleated RBC % 0 Metamyelocytes 3 H Smudge Cells Few Hypochromia 1+ Toxic Granulation Few Platelet Estimate Adequate Platelet Comment No clotting detected PT with INR INR PTT (Actin FS) VBG pH 7.42 H POC VBG pCO2 34.5 L POC VBG pO2 < 49 H VBG HCO3 22.2 L VBG O2 Sat (Wai) 75.9 VBG Base Excess -1.3 Sodium 136 Potassium 5.0 Chloride 107 Carbon Dioxide 20 L Anion Gap 8 BUN 32.4 H Creatinine 1.2 Est GFR (CKD-EPI)AfAm 67.67 Est GFR (CKD-EPI)NonAf 58.39 Random Glucose 142 H Lactic Acid Calcium 7.9 L Phosphorus Magnesium Iron TIBC Iron Saturation Unsaturated IBC Ferritin Total Bilirubin 0.9 AST 46 H ALT 30 Alkaline Phosphatase 73 Troponin I < 0.02 Total Protein 6.2 L Albumin 1.4 L 06/24/19 06/24/19 06/24/19 02:24 06:08 06:08 WBC 18.0 H RBC 3.41 L Hgb 9.7 L Hct 29.6 L MCV 86.9 MCH 28.5 MCHC 32.8 RDW 16.3 H Plt Count 283 MPV 7.1 L D Absolute Neuts (auto) Total Counted Neutrophils % Neutrophils % (Manual) Band Neutrophils % Lymphocytes % Lymphocytes % (Manual) Monocytes % Monocytes % (Manual) Eosinophils % Basophils % Nucleated RBC % Metamyelocytes Smudge Cells Hypochromia Toxic Granulation Platelet Estimate Platelet Comment PT with INR 25.80 H INR 2.17 H PTT (Actin FS) 38.0 H VBG pH POC VBG pCO2 POC VBG pO2 VBG HCO3 VBG O2 Sat (Wai) VBG Base Excess Sodium Potassium Chloride Carbon Dioxide Anion Gap BUN Creatinine Est GFR (CKD-EPI)AfAm Est GFR (CKD-EPI)NonAf Random Glucose Lactic Acid 2.2 H* Calcium Phosphorus Magnesium Iron TIBC Iron Saturation Unsaturated IBC Ferritin Total Bilirubin AST ALT Alkaline Phosphatase Troponin I Total Protein Albumin 06/24/19 06/24/19 06:08 06:08 WBC RBC Hgb Hct MCV MCH MCHC RDW Plt Count MPV Absolute Neuts (auto) Total Counted Neutrophils % Neutrophils % (Manual) Band Neutrophils % Lymphocytes % Lymphocytes % (Manual) Monocytes % Monocytes % (Manual) Eosinophils % Basophils % Nucleated RBC % Metamyelocytes Smudge Cells Hypochromia Toxic Granulation Platelet Estimate Platelet Comment PT with INR INR PTT (Actin FS) VBG pH POC VBG pCO2 POC VBG pO2 VBG HCO3 VBG O2 Sat (Wai) VBG Base Excess Sodium 138 Potassium 4.3 Chloride 108 H Carbon Dioxide 24 Anion Gap 6 L BUN 32.3 H Creatinine 1.1 Est GFR (CKD-EPI)AfAm 75.18 Est GFR (CKD-EPI)NonAf 64.86 Random Glucose 123 H Lactic Acid 1.6 Calcium 8.0 L Phosphorus 3.6 Magnesium 2.1 Iron 11 L TIBC 99 L Iron Saturation 11 L Unsaturated IBC 88 L Ferritin 519.3 H Total Bilirubin 1.0 AST 27 ALT 27 Alkaline Phosphatase 65 Troponin I Total Protein 5.3 L Albumin 1.4 L Active Medications Generic Name Dose Route Start Last Admin Trade Name Freq PRN Reason Stop Dose Admin Atorvastatin Calcium 20 mg 06/24/19 22:00 Lipitor - PO HS LAUREN Docusate Sodium 100 mg 06/24/19 05:35 Colace - PO BID PRN CONSTIPATION Lactated Ringer's 1,000 ml in 1,000 mls @ 100 mls/hr 06/24/19 04:00 06/24/19 04:13 Lactated Ringers Solution IV 100 mls/hr ASDIR LAUREN Administration Piperacillin Sod/Tazobactam 50 mls @ 100 mls/hr 06/24/19 09:00 06/24/19 08:36 Sod 3.375 gm/ Dextrose IVPB 06/24/19 21:29 100 mls/hr Q6H-IV LAUREN Administration Protocol Piperacillin Sod/Tazobactam 50 mls @ 100 mls/hr 06/25/19 03:00 Sod 3.375 gm/ Dextrose IVPB Q6H-IV LAUREN Protocol Metoprolol Succinate 200 mg 06/24/19 10:00 Toprol Xl - PO DAILY LAUREN Polyethylene Glycol 17 gm 06/24/19 10:00 Miralax (For Daily Use) - PO DAILY LAUREN ASSESSMENT/PLAN: Problem List - Problems (1) Severe sepsis Assessment/Plan: presents with severe sepsis with an elevated WBC @ 27, lactic acidosis and tachycardia. Source of sepsis is right abdominal surgical site infection/with abscess formation. Blood and urine cultures are sent and pending. on Zosyn per ID. abdominal/pelvis CT: interval development of a 9.5x 0.7x 6.4cm complex fluid structure seen with the right renal fossa suggestive of abscess formation. also noted is development of a right lateral flank subcutaneous 5.4 x 2.7cm collection which may represent additional abscess. for drainage in the OR tomorrow NPO at midnight. Code(s): A41.9 - SEPSIS, UNSPECIFIED ORGANISM; R65.20 - SEVERE SEPSIS WITHOUT SEPTIC SHOCK (2) Abdominal fluid collection Assessment/Plan: patient with two abscess formation as noted on ct abdomen. abdominal/pelvis CT: a 9.5x 0.7x 6.4cm complex fluid structure seen with the right renal fossa andevelopment of a right lateral flank subcutaneous 5.4 x 2.7cm collection which may represent additional abscess. Code(s): R18.8 - OTHER ASCITES (3) Abdominal wall abscess at site of surgical wound Assessment/Plan: see above Code(s): T81.49XA - INFECTION FOLLOWING A PROCEDURE, OTHER SURGICAL SITE, INIT (4) Afib Assessment/Plan: permanent afib rate control with toprol holding eliquis for surgical intervention Code(s): I48.91 - UNSPECIFIED ATRIAL FIBRILLATION (5) HLD (hyperlipidemia) Assessment/Plan: continue home medications Code(s): E78.5 - HYPERLIPIDEMIA, UNSPECIFIED (6) HTN (hypertension) Assessment/Plan: controlled, continue cardiac medications and monitor. Code(s): I10 - ESSENTIAL (PRIMARY) HYPERTENSION (7) History of nephrectomy, right Assessment/Plan: s/p nephrectomy removal on 05/18/19, monitor intake and output. urology following Code(s): Z90.5 - ACQUIRED ABSENCE OF KIDNEY (8) Systolic CHF Assessment/Plan: on entresto monitor daily intake and output will put in for daily weights Code(s): I50.20 - UNSPECIFIED SYSTOLIC (CONGESTIVE) HEART FAILURE (9) Prophylactic measure Assessment/Plan: fen cautious with IVF secondary to systolic chf on low salt diet monitor electrolytes dvt prophy: eliquis on hold. SCDs prevention: bowel regimen protonix SCDs early ambulation incentive spirometer. Code(s): Z29.9 - ENCOUNTER FOR PROPHYLACTIC MEASURES, UNSPECIFIED (10) DVT prophylaxis Assessment/Plan: hold eliquis, start on SCDs. Code(s): Z29.9 - ENCOUNTER FOR PROPHYLACTIC MEASURES, UNSPECIFIED Visit type - Emergency Visit Emergency Visit: Yes ED Registration Date: 06/24/19 Care time: The patient presented to the Emergency Department on the above date and was hospitalized for further evaluation of their emergent condition. - New Patient This patient is new to me today: Yes Date on this admission: 06/24/19 - Critical Care Critical Care patient: No - Discharge Referral Referred to [facility] Med P.C.: No
[2019-06-24] MEDS ORDERED: ACETAMINOPHEN 325 MG TABLET (FP) PO PRN (09:28)
[2019-06-24] MEDS: POLYETHYLENE GLYCOL 3350 119 GM BTL PO SCH (09:46)
[2019-06-24] MEDS ORDERED: APIXABAN 5 MG TABLET PO SCH (10:00)
[2019-06-24] MEDS: SACUBITRIL/VALSARTAN 97 MG-103 MG TABLET PO SCH ×2 (11:22→22:29)
--- NOTE | 2019-06-24 11:24 | PN ---
Progress Note (short form) - Note Progress Note: ID consult dictated 78 yo man with RCC s/p right nephrectomy 05/18, seen post op doing well yesterday developed erythema surrounding the incision and foulsmelling drainage - soaked his tshirt no fevers has had poor appetitie since surgery wbc 27.9 on arrival to ed- now 18.9 received vanco/zosyn ct scan report pending- abscess noted abscess- ?postop d/w dr Vaz his urologist- he has spoken to IR who will evaluate ct and drain abscess requesting patient be npo general surgery to see as well continue vanco/zosyn RLE swelling r/o dvt- duplex ordered history afib s/p nephrectomy for RCC prostate ca- on medical treatment d/w hospitalist
--- NOTE | 2019-06-24 11:37 | EKG ---
Test Reason : Blood Pressure : / mmHG Vent. Rate : 105 BPM Atrial Rate : 055 BPM P-R Int : 000 ms QRS Dur : 148 ms QT Int : 404 ms P-R-T Axes : 000 -43 111 degrees QTc Int : 533 ms ATRIAL FIBRILLATION WITH PREMATURE VENTRICULAR OR ABERRANTLY CONDUCTED COMPLEXES LEFT AXIS DEVIATION LEFT VENTRICULAR HYPERTROPHY WITH QRS WIDENING AND REPOLARIZATION ABNORMALITY ABNORMAL ECG Confirmed by Vicente Ortez MD ([id number]) on 06/24/2019 11:37:02 AM Referred By: Confirmed By:Vicente Ortez MD
--- NOTE | 2019-06-24 11:46 | CON.CARD ---
Cardiology Consult (text) - Consultation Consultation Note: cc: abscess, drainage from wound hpi: 78 m hx syst chf, ar/as, pafib, htn, hld s/p nephrectomy here with drainage from wound, abscess. Feels tired. No cp sob palps dizzy loc pnd orthopnea le edema. pmh: per hpi psh: no surgery social: ex tob fam: no premature cad, scd ros: per hpi; all others nl meds: Home Medications Medication Instructions Recorded Atorvastatin Ca [Lipitor] 20 mg PO DAILY 03/19/19 Metoprolol Succinate 200 mg PO DAILY 03/19/19 Acetaminophen [Tylenol .Regular 325 mg PO Q6H PRN tablet 05/22/19 Strength -] Apixaban [Eliquis -] 5 mg PO BID tablet 05/22/19 Docusate Sodium [Colace -] 100 mg PO BID PRN capsule 05/22/19 Polyethylene Glycol 3350 [Miralax 17 gm PO DAILY #1 bottle 05/22/19 119 gm Btl -] pe: Vital Signs Period Temp Pulse Resp BP Sys/Blanco Pulse Ox Last 24 Hr 97.6 F-97.8 F 100-109 20-20 98-100/60-65 97-98 nad no jvd irreg, s1s2, no r/g, +murmur no jaundice diaphoresis cta bl nl eff aao3 no le e/c/c abd nt nd pos bs pos dp pt no carotid bruits Laboratory Last Values WBC 18.0 K/mm3 (4.0-10.0) H 06/24/19 06:08 RBC 3.41 M/mm3 (4.00-5.60) L 06/24/19 06:08 Hgb 9.7 GM/dL (11.7-16.9) L 06/24/19 06:08 Hct 29.6 % (35.4-49) L 06/24/19 06:08 MCV 86.9 fl (80-96) 06/24/19 06:08 MCH 28.5 pg (25.7-33.7) 06/24/19 06:08 MCHC 32.8 g/dl (32.0-35.9) 06/24/19 06:08 RDW 16.3 % (11.9-15.9) H 06/24/19 06:08 Plt Count 283 K/MM3 (134-434) 06/24/19 06:08 MPV 7.1 fl (7.5-11.1) L D 06/24/19 06:08 Absolute Neuts (auto) 24.9 K/mm3 (1.5-8.0) H 06/24/19 02:24 Total Counted 100 06/24/19 02:24 Neutrophils % 89.3 % (42.8-82.8) H 06/24/19 02:24 Neutrophils % (Manual) 77.0 % (42.8-82.8) 06/24/19 02:24 Band Neutrophils % 11.0 % 06/24/19 02:24 Lymphocytes % 5.0 % (8-40) L D 06/24/19 02:24 Lymphocytes % (Manual) 9.0 % (8-40) 06/24/19 02:24 Monocytes % 5.0 % (3.8-10.2) 06/24/19 02:24 Monocytes % (Manual) 3 % (3.8-10.2) L 06/24/19 02:24 Eosinophils % 0.3 % (0-4.5) 06/24/19 02:24 Basophils % 0.4 % (0-2.0) 06/24/19 02:24 Nucleated RBC % 0 % (0-0) 06/24/19 02:24 Metamyelocytes 3 % (0-2) H 06/24/19 02:24 Smudge Cells Few 06/24/19 02:24 Hypochromia 1+ 06/24/19 02:24 Toxic Granulation Few 06/24/19 02:24 Platelet Estimate Adequate 06/24/19 02:24 Platelet Comment No clumping noted 06/24/19 02:24 Platelet Comment No clotting detected 06/24/19 02:24 PT with INR 25.80 SEC (9.7-13.0) H 06/24/19 06:08 INR 2.17 (0.83-1.09) H 06/24/19 06:08 PTT (Actin FS) 38.0 SECONDS (25.2-36.5) H 06/24/19 06:08 VBG pH 7.42 (7.31-7.41) H 06/24/19 02:00 POC VBG pCO2 34.5 mmHg (38-52) L 06/24/19 02:00 POC VBG pO2 < 49 mmHg (28-48) H 06/24/19 02:00 VBG HCO3 22.2 mmol/L (23-29) L 06/24/19 02:00 VBG O2 Sat (Wai) 75.9 % (70-80) 06/24/19 02:00 VBG Base Excess -1.3 meq/l (-2-2) 06/24/19 02:00 Sodium 138 mmol/L (136-145) 06/24/19 06:08 Potassium 4.3 mmol/L (3.5-5.1) 06/24/19 06:08 Chloride 108 mmol/L (98-107) H 06/24/19 06:08 Carbon Dioxide 24 mmol/L (21-32) 06/24/19 06:08 Anion Gap 6 MMOL/L (8-16) L 06/24/19 06:08 BUN 32.3 mg/dL (7-18) H 06/24/19 06:08 Creatinine 1.1 mg/dL (0.55-1.3) 06/24/19 06:08 Est GFR (CKD-EPI)AfAm 75.18 06/24/19 06:08 Est GFR (CKD-EPI)NonAf 64.86 06/24/19 06:08 Random Glucose 123 mg/dL (74-106) H 06/24/19 06:08 Hemoglobin A1c % 6.2 % (4.2-6.3) 06/24/19 06:08 Lactic Acid 3.7 mmol/L (0.4-2.0) H* 06/24/19 09:09 Calcium 8.0 mg/dL (8.5-10.1) L 06/24/19 06:08 Phosphorus 3.6 mg/dL (2.5-4.9) 06/24/19 06:08 Magnesium 2.1 mg/dL (1.8-2.4) 06/24/19 06:08 Iron 11 ug/dL (50-175) L 06/24/19 06:08 TIBC 99 ug/dL (250-450) L 06/24/19 06:08 Iron Saturation 11 % (17.5-39) L 06/24/19 06:08 Unsaturated IBC 88 ug/dL (200-275) L 06/24/19 06:08 Ferritin 519.3 ng/ml (8-388) H 06/24/19 06:08 Total Bilirubin 1.0 mg/dL (0.2-1) 06/24/19 06:08 AST 27 U/L (15-37) 06/24/19 06:08 ALT 27 U/L (13-61) 06/24/19 06:08 Alkaline Phosphatase 65 U/L (45-117) 06/24/19 06:08 Troponin I < 0.02 ng/ml (0.00-0.05) 06/24/19 02:24 Total Protein 5.3 g/dl (6.4-8.2) L 06/24/19 06:08 Albumin 1.4 g/dl (3.4-5.0) L 06/24/19 06:08 ecg: afib, rate ok, lvh with repol changes, no sig change prior cxr: chronic changes a/p: 78 m hx syst chf, ar/as, pafib, htn, hld here with drainage from wound sepsis, abscess, s/p R nephrectomy - manage per urology, ID -holding eliquis for possible intervention pafib: -cont bb for rate control -holding eliquis as above syst chf: -euvolemic, monitor volume status receiving IVF for sepsis - Cont bb, entresto as/ar: Pt denies symptoms. Outpt f/u. hld: -cont statin htn: -cont home meds
--- NOTE | 2019-06-24 14:56 | CON.PULM ---
Consult Consult Specialty:: PULMONARY Referred by:: CHANDA Hauser Reason for Consultation:: pleural effusion - History of Present Illness Chief Complaint: draining wound History of Present Illness: 78yo male with h/o HTN, hyperlipidemia, atrial fibrillation, recently diagnosed renal cell carcinoma s/p right nephrectomy Apr 2019 who was admitted with drainage from surgical site. Drainage is rust colored, foul smelling. Denies fevers, chills or chills. Found to have a right sided pleural effusion on abdominal imaging. On a previous admission, he had a right thoracentesis which was negative for malignancy but exudative. Current imaging appears similar. Denies shortness of breath, cough or wheezing. No chest discomfort. He is a remote smoker, no history of asthma or COPD. - History Source History Provided By: Patient, Family Member, Medical Record Limitations to Obtaining History: No Limitations - Past Medical History Cardio/Vascular: Yes: AFIB, HTN, Hyperlipdemia - Alcohol/Substance Use Hx Alcohol Use: Yes (OCCASIONAL) - Smoking History Smoking history: Former smoker Have you smoked in the past 12 months: No If you are a former smoker, when did you quit?: 12 YEARS AGO Home Medications - Allergies Allergies/Adverse Reactions: Allergies Allergy/AdvReac Type Severity Reaction Status Date / Time amlodipine Allergy Severe Swelling Verified 06/24/19 01:30 - Home Medications Home Medications: Ambulatory Orders Atorvastatin Ca [Lipitor] 20 mg PO DAILY 03/19/19 Metoprolol Succinate 200 mg PO DAILY 03/19/19 Acetaminophen [Tylenol .Regular Strength -] 325 mg PO Q6H PRN tablet 05/22/19 Apixaban [Eliquis -] 5 mg PO BID tablet 05/22/19 Docusate Sodium [Colace -] 100 mg PO BID PRN capsule 05/22/19 Polyethylene Glycol 3350 [Miralax 119 gm Btl -] 17 gm PO DAILY #1 bottle Review of Systems - Review of Systems Constitutional: denies: Chills, Fever Eyes: denies: Recent Change in Vision HENT: denies: Nasal Congestion, Throat Pain Neck: denies: Stiffness, Tenderness Cardiovascular: denies: Chest Pain, Shortness of Breath Respiratory: denies: Cough, SOB, Wheezing Gastrointestinal: denies: Abdominal Pain, Nausea, Vomiting Genitourinary: denies: Dysuria, Hematuria Neurological: denies: Headache Endocrine: denies: Unexplained Weight Loss Physical Exam Vital Sings: Vital Signs Temperature 97.8 F 06/24/19 08:00 Pulse Rate 100 H 06/24/19 08:00 Respiratory Rate 20 06/24/19 08:00 Blood Pressure 100/60 06/24/19 08:00 O2 Sat by Pulse Oximetry (%) 98 06/24/19 08:00 Constitutional: Yes: Calm Eyes: Yes: Conjunctiva Clear, EOM Intact HENT: Yes: Atraumatic, Normocephalic Neck: Yes: Supple, Trachea Midline Cardiovascular: Yes: Regular Rate and Rhythm Respiratory: Yes: Diminished (decreased breath sounds right base) ...Clubbing: No Gastrointestinal: Yes: Normal Bowel Sounds, Soft Renal/: Yes: Other (right flank with draining wound) Edema: No Labs: CBC, BMP 06/24/19 06:08 06/24/19 06:08 Imaging - Results Chest X-ray: Report Reviewed, Image Reviewed Cat Scan: Report Reviewed, Image Reviewed (retroperitoneal abscess) Assessment/Plan Right Retroperitoneal Abscess Renal Cell Carcinoma s/p Recent R Nephrectomy Sepsis Lactic Acidosis Atrial Fibrillation LV Systolic Dysfunction HTN Hyperlipidemia Right Pleural Effusion Anemia - IV antibiotics - f/u cultures - IVF - trend lactate - pleural effusion appears chronic, similar to CT chest Jan 2019, may have a trapped lung - can monitor effusion as outpt - can defer further thoracentesis unless pt symptomatic - rate control Thank you for this consult Vlad iVllagran MD
--- NOTE | 2019-06-24 15:43 | CONSULT ---
- Consultation REQUESTING PROVIDER: Marky Garza MD CONSULT REQUEST: We have been asked to surgically evaluate this patient for evaluation and management of a right flank/post op lap right nephrectomy abscess. 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 He is moving his bowels and has no GI/ c/o's o/w. PMHx: HLD/HTN/AF/h/o pleural effusion PSHx: right nephrectomy 04/2019 Home Medications Medication Instructions Recorded Atorvastatin Ca [Lipitor] 20 mg PO DAILY 03/19/19 Metoprolol Succinate 200 mg PO DAILY 03/19/19 Acetaminophen [Tylenol .Regular 325 mg PO Q6H PRN tablet 05/22/19 Strength -] Apixaban [Eliquis -] 5 mg PO BID tablet 05/22/19 Docusate Sodium [Colace -] 100 mg PO BID PRN capsule 05/22/19 Polyethylene Glycol 3350 [Miralax 17 gm PO DAILY #1 bottle 05/22/19 119 gm Btl -] Allergies Allergy/AdvReac Type Severity Reaction Status Date / Time amlodipine Allergy Severe Swelling Verified 06/24/19 01:30 REVIEW OF SYSTEMS: CONSTITUTIONAL: Present: fever, chills, diaphoresis, generalized weakness, malaise, loss of appetite, weight change CARDIOVASCULAR: Absent: chest pain, syncope, palpitations, irregular heart rate, lightheadedness , peripheral edema RESPIRATORY: Absent: cough, shortness of breath, dyspnea with exertion, wheezing, Absent: stridor, hemoptysis GASTROINTESTINAL: Present: abdominal pain, abdominal distension, nausea, Absent: vomiting, diarrhea, constipation, melena, hematochezia GENITOURINARY: Absent: dysuria, frequency, urgency, hesitancy, hematuria, flank pain, genital pain MUSCULOSKELETAL: Absent: myalgia, arthralgia, joint swelling, back pain, neck pain SKIN: Absent: rash, itching, pallor HEMATOLOGIC/IMMUNOLOGIC: Absent: easy bleeding, easy bruising, lymphadenopathy NEUROLOGIC: Absent: headache, focal weakness, paresthesias, dizziness, unsteady gait, seizure, mental status changes, bladder or bowel incontinence PSYCHIATRIC: Absent: anxiety, depression, suicidal or homicidal ideation, hallucinations. PHYSICAL EXAM: GENERAL: Awake, alert, and fully oriented, in no acute distress. HEAD: Normal with no signs of trauma. EYES: PERRL, sclera anicteric, conjunctiva clear. NECK: Normal ROM, supple without lymphadenopathy, JVD, or masses. ABDOMEN: Soft, nontender right side/flank w/skin erythema and edema and warmth and ttp w/foul smelling drainage from the wound, not distended, normoactive bowel sounds, no guarding, no rebound, no masses. No organomegaly. Healed scra and port sites. MUSCULOSKELETAL: Normal ROM at all joints. No bony deformities or tenderness. No CVA tenderness. UPPER EXTREMITIES: 2+ pulses, warm, well-perfused. No cyanosis. Cap refill <2 seconds. No peripheral edema. LOWER EXTREMITIES: 2+ pulses, warm, well-perfused. No calf tenderness. No peripheral edema. NEUROLOGICAL: Normal speech, gait not observed. PSYCH: Cooperative. Good eye contact. Appropriate mood and affect. SKIN: Warm, dry, normal turgor, no rashes or lesions noted. Vital Signs Temperature 97.8 F 06/24/19 08:00 Pulse Rate 86 06/24/19 14:54 Respiratory Rate 25 H 06/24/19 14:54 Blood Pressure 125/81 06/24/19 14:54 O2 Sat by Pulse Oximetry (%) 100 06/24/19 14:54 Lab Results WBC 18.0 K/mm3 (4.0-10.0) H 06/24/19 06:08 RBC 3.41 M/mm3 (4.00-5.60) L 06/24/19 06:08 Hgb 9.7 GM/dL (11.7-16.9) L 06/24/19 06:08 Hct 29.6 % (35.4-49) L 06/24/19 06:08 MCV 86.9 fl (80-96) 06/24/19 06:08 MCHC 32.8 g/dl (32.0-35.9) 06/24/19 06:08 RDW 16.3 % (11.9-15.9) H 06/24/19 06:08 Plt Count 283 K/MM3 (134-434) 06/24/19 06:08 Sodium 138 mmol/L (136-145) 06/24/19 06:08 Potassium 4.3 mmol/L (3.5-5.1) 06/24/19 06:08 Chloride 108 mmol/L (98-107) H 06/24/19 06:08 Carbon Dioxide 24 mmol/L (21-32) 06/24/19 06:08 Anion Gap 6 MMOL/L (8-16) L 06/24/19 06:08 BUN 32.3 mg/dL (7-18) H 06/24/19 06:08 Creatinine 1.1 mg/dL (0.55-1.3) 06/24/19 06:08 Random Glucose 123 mg/dL (74-106) H 06/24/19 06:08 Calcium 8.0 mg/dL (8.5-10.1) L 06/24/19 06:08 INR 2.17 (0.83-1.09) H 06/24/19 06:08 CT scan a/p reviewed IMP: post right nephrectomy abscess w/extraperitoneal extension to the abdominal wall soft tissue. PLAN: Case d/w Dr. Marky Garza; patient will go for IRD under CT guidance ; also recommend wound exploration and drainage of the subcutaneous tissue and debridement of all non viable tissue if present; suggest ICU evaluation and aggressive fluid resuscitation and empiric IVABS to cover bowel/ dann; keep NPO for possible OR 06/25/2019 or prn sooner; hold any anticoagulationer; mechanical DVT prophylaxis; strict I/O and serial labs including lactate; will f /u. Jesse Oro MD FACS
--- NOTE | 2019-06-24 16:05 | SPA.PREOP ---
- PRE-OP NOTE Dx: s/p laprascopic right radical nephrectomy 05/18/2019 now with abscess in the renal fossa with extraperitoneal extension to the abdominal wall soft tissue Planned Procedure: right flank i&d with pulse lavage irrigation Surgeon: Jesse Oro Last Vital Signs Temp Pulse Resp BP Pulse Ox 97.8 F 90 20 123/68 98 06/24/19 08:00 06/24/19 15:24 06/24/19 15:24 06/24/19 15:24 06/24/19 15:24 Lab Results WBC 18.0 K/mm3 (4.0-10.0) H 06/24/19 06:08 RBC 3.41 M/mm3 (4.00-5.60) L 06/24/19 06:08 Hgb 9.7 GM/dL (11.7-16.9) L 06/24/19 06:08 Hct 29.6 % (35.4-49) L 06/24/19 06:08 MCV 86.9 fl (80-96) 06/24/19 06:08 MCHC 32.8 g/dl (32.0-35.9) 06/24/19 06:08 RDW 16.3 % (11.9-15.9) H 06/24/19 06:08 Plt Count 283 K/MM3 (134-434) 06/24/19 06:08 Sodium 138 mmol/L (136-145) 06/24/19 06:08 Potassium 4.3 mmol/L (3.5-5.1) 06/24/19 06:08 Chloride 108 mmol/L (98-107) H 06/24/19 06:08 Carbon Dioxide 24 mmol/L (21-32) 06/24/19 06:08 Anion Gap 6 MMOL/L (8-16) L 06/24/19 06:08 BUN 32.3 mg/dL (7-18) H 06/24/19 06:08 Creatinine 1.1 mg/dL (0.55-1.3) 06/24/19 06:08 Random Glucose 123 mg/dL (74-106) H 06/24/19 06:08 Calcium 8.0 mg/dL (8.5-10.1) L 06/24/19 06:08 INR 2.17 (0.83-1.09) H 06/24/19 06:08 - IMAGING Cat Scan: Report Reviewed Other: Pending (s/p IR drainage catheter placement 10Fr (drained 10cc purulent material and sent for C&S)) - ASSESSMENT/PLAN 1. Make NPO after midnight except po meds 2. GI/DVT PPX 3. Medical optimization / clearance 4. Consent to be obtained by surgeon after risks, benefits and alternatives discussed with patient and or Health Care Proxy. Problem List - Problems (1) Abdominal wall abscess at site of surgical wound Code(s): T81.49XA - INFECTION FOLLOWING A PROCEDURE, OTHER SURGICAL SITE, INIT (2) Afib Code(s): I48.91 - UNSPECIFIED ATRIAL FIBRILLATION (3) HLD (hyperlipidemia) Code(s): E78.5 - HYPERLIPIDEMIA, UNSPECIFIED (4) HTN (hypertension) Code(s): I10 - ESSENTIAL (PRIMARY) HYPERTENSION (5) History of nephrectomy, right Code(s): Z90.5 - ACQUIRED ABSENCE OF KIDNEY Visit type - Case Type Case Type: ED Admission - Emergency Emergency Visit: Yes ED Registration Date: 06/24/19 Care time: The patient presented to the Emergency Department on the above date and was hospitalized for further evaluation of their emergent condition. - New patient This patient is new to me today: Yes Date on this admission: 06/24/19
[2019-06-24] MEDS: VANCOMYCIN 1 GRAM (PRE-DOCKED) 1,000 MG/250 ML BAG IVPB SCH (17:49)
--- NOTE | 2019-06-24 17:55 | CONS ---
DATE OF CONSULTATION: DATE OF DICTATION: 06/24/2019 INFECTIOUS DISEASE CONSULTATION HISTORY OF PRESENT ILLNESS: This is a very pleasant 78-year-old man who lives at home with his . He has a history of atrial fibrillation, hypertension, hyperlipidemia, prostate cancer with a low [place] score, recent diagnosis of renal cell cancer as well as prostate cancer, and he underwent a right nephrectomy on May 18, 2019, with Dr. Garza. He has also been receiving medical treatment for his prostate cancer with injections. He yesterday was watching TV and suddenly his T-shirt was wet from drainage from the surgical site. He also noted an unpleasant odor. He notes he has had some sweats at home but no fevers or chills or nausea or vomiting. 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 He saw his urologist 2 weeks ago and reports that everything was fine at that time. Patient does report he had a thoracentesis in March 2019 which he was told was unrevealing. PAST MEDICAL HISTORY: Notable for atrial fibrillation, hyperlipidemia, hypertension, the prostate cancer, renal cell cancer. SURGICAL HISTORY: Notable for the right radical nephrectomy, has never had any other surgery. FAMILY HISTORY: Notable for emphysema in his father and blood cancer in his mother. SOCIAL HISTORY: He is . He is retired. 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 He is a rare cigarette smoker, stopped many years ago. REVIEW OF SYSTEMS: Has been notable for weight loss, which he attributes to his poor appetite. MEDICATION: His medications at home include: 1. MiraLAX. 2. Metoprolol. 3. Colace. 4. Lipitor. 5. Eliquis. 6. Tylenol. PHYSICAL EXAMINATION: General: He is a pleasant man. He is awake and alert. Vital signs: Temperature is 97.8, pulse of 86. Blood pressure is 125/81, respiratory rate is 25. He is saturating 100% on room air. HEENT: Normocephalic. Eyes are anicteric. Neck: Supple. Lungs: Clear to auscultation. Heart: Irregularly irregular. Abdomen: Soft. He has diffuse erythema of his right flank with induration. He has foul-smelling drainage from the postoperative wound site. He has got normal bowel sounds. He has got no rebound. His abdomen is otherwise nontender. He has got induration surrounding the entire area. Extremities: Notable for bilateral pitting edema, 1+ pitting pretibial and pedal. LABORATORY: His labs are notable for an admission white count of 27.9, repeat is 18, this morning hemoglobin is 9.7, platelets are 283, INR is 2, BUN and creatinine are 32 and 1.1. His LFTs are normal. Albumin is 1.4. Blood cultures are pending. Cultures have not yet been obtained of the site. He had a CAT scan of his abdomen and pelvis done that was notable for a 9.5 x 0.7 x 6.4 cm complex fluid structure in the right renal fossa suggestive of abscess formation, and he has got right lateral flank subcutaneous 5.4 x 2.7 cm collection which may represent another collection, and he has got a small to moderate right pleural effusion. IMPRESSION: In summary, this is a 78-year-old man admitted with an abscess at the site of his prior surgery. I discussed his case with Dr. Garza at length. He has spoken to Interventional Radiology, who will evaluate the patient and see if he needs drainage. He has requested patient to be n.p.o. as well he will be evaluated by General Surgery. Continue vancomycin and Zosyn. He has right lower extremity swelling that is a little bit increased compared to the left. Would obtain a duplex, rule out deep venous thrombosis. History of atrial fibrillation, status post nephrectomy prostate cancer on medical treatment. Case was discussed with the hospitalist as well as the attending urologist. HILDA SILVER M.D. [id number]
[2019-06-24] MEDS ORDERED: SODIUM CHLORIDE 500 ML IV STA (21:39)
[2019-06-24] MEDS ORDERED: ATORVASTATIN CA 20 MG TABLET (FP) PO SCH (22:00)
[2019-06-24] MEDS ORDERED: PIPERACILLIN/TAZOBACTAM 3.375 GM VIAL IVPB ONE (22:26)
[2019-06-24] MEDS ORDERED: DEXTROSE 5%-WATER - 50 ML IVPB ONE (22:26)
[2019-06-24] MEDS ORDERED: PT OWN MED DRAWER 7, Y5N ONE (22:26)
[2019-06-25] MEDS ORDERED: PIPERACILLIN/TAZOBACTAM 3.375 GM VIAL IVPB ONE ×4 (01:32→20:04)
[2019-06-25] MEDS ORDERED: DEXTROSE 5%-WATER - 50 ML IVPB ONE ×4 (01:32→20:05)
[2019-06-25] MEDS: PIPERACILLIN/TAZOB 3.375 GM 3.375 GM in DEXTROSE 5%-WATER - 50 ML IVPB SCH ×5 (03:14→20:25)
[2019-06-25] MEDS: LACTATED RINGERS SOLUTION 1,000 ML/1,000 ML INFUS.BAG IV SCH (05:57)
[2019-06-25] MEDS: VANCOMYCIN 1 GRAM (PRE-DOCKED) 1,000 MG/250 ML BAG IVPB SCH ×2 (05:58→17:33)
[2019-06-25 08:23] LABS: BASO % 0.3 % (0-2.0); EOS % 1.4 % (0-4.5); HEMATOCRIT 28.1 % (35.4-49); HEMOGLOBIN 9.2 GM/dL (11.7-16.9); LYMPH % 6.1 % (8-40); MCH 28.3 pg (25.7-33.7); MCHC 32.9 g/dl (32.0-35.9); MEAN CELL VOLUME 86.1 fl (80-96); MEAN PLT VOLUME 7.2 fl (7.5-11.1); MONO % 4.2 % (3.8-10.2); PLATELET COUNT 285 K/MM3 (134-434); RBC 3.26 M/mm3 (4.00-5.60); RDW 16.8 % (11.9-15.9); WHITE BLOOD COUNT 13.4 K/mm3 (4.0-10.0)
[2019-06-25 08:36] LABS: INR 1.64 (0.83-1.09); PROTHROMBIN TIME (PATIENT) 19.4 SEC (9.7-13.0)
[2019-06-25 08:38] LABS: ACTIVATED PTT 31.7 SECONDS (25.2-36.5)
[2019-06-25 08:54] LABS: ALBUMIN 1.3 g/dl (3.4-5.0); BILIRUBIN,TOTAL 0.8 mg/dL (0.2-1); BLOOD UREA NITROGEN 27.2 mg/dL (7-18); CALCIUM 8.1 mg/dL (8.5-10.1); CREATININE 1.2 mg/dL (0.55-1.3); MAGNESIUM 1.9 mg/dL (1.8-2.4); POTASSIUM 4.1 mmol/L (3.5-5.1); TOT PROT 5.4 g/dl (6.4-8.2)
[2019-06-25] MEDS ORDERED: PT OWN MED DRAWER 7, Y5N ONE (09:59)
[2019-06-25] MEDS: POLYETHYLENE GLYCOL 3350 119 GM BTL PO SCH (10:14)
[2019-06-25] MEDS: SACUBITRIL/VALSARTAN 97 MG-103 MG TABLET PO SCH ×2 (10:15→22:33)
--- NOTE | 2019-06-25 10:22 | PN ---
Progress Note (short form) - Note Progress Note: Resting in NAD on RA. No CP or SOB. No acute events overnight. Intake & Output 06/22/19 06/23/19 06/24/19 06/25/19 23:59 23:59 23:59 23:59 Intake Total 800 Balance 800 Weight 232 lb Last Vital Signs Temp Pulse Resp BP Pulse Ox 97.8 F 89 75 H 115/54 L 96 06/25/19 05:00 06/25/19 05:00 06/25/19 05:00 06/25/19 05:00 06/24/19 21:00 Active Medications Acetaminophen (Tylenol -) 650 mg PO Q6H PRN PRN Reason: PAIN LEVEL 4 - 6 Atorvastatin Calcium (Lipitor -) 20 mg PO HS [facility] Last Admin: 06/24/19 22:29 Dose: 20 mg Docusate Sodium (Colace -) 100 mg PO BID PRN PRN Reason: CONSTIPATION Lactated Ringer's (Lactated Ringers Solution) 1,000 ml in 1,000 mls @ 100 mls/ hr IV ASDIR LAUREN Last Admin: 06/25/19 05:57 Dose: 100 mls/hr Piperacillin Sod/Tazobactam (Sod 3.375 gm/ Dextrose) 50 mls @ 100 mls/hr IVPB Q6H-IV LAUREN; Protocol Last Admin: 06/25/19 10:13 Dose: 100 mls/hr Vancomycin HCl (Vancomycin (Pre-Docked)) 1,000 mg in 250 mls @ 166.667 mls/hr IVPB Q12H LAUREN; Protocol Last Admin: 06/25/19 05:58 Dose: 166.667 mls/hr Metoprolol Succinate (Toprol Xl -) 200 mg PO DAILY [facility] Last Admin: 06/25/19 10:13 Dose: 200 mg Polyethylene Glycol (Miralax (For Daily Use) -) 17 gm PO DAILY [facility] Last Admin: 06/25/19 10:14 Dose: 17 gm Sacubitril/Valsartan (Entresto 97 Mg-103 Mg Tablet) 1 tab PO BID [facility] Last Admin: 06/25/19 10:15 Dose: 1 tab Constitutional: Yes: NAD Eyes: Yes: Conjunctiva Clear, EOM Intact HENT: Yes: Atraumatic, Normocephalic Neck: Yes: Supple, Trachea Midline Cardiovascular: Yes: Regular Rate and Rhythm Respiratory: Yes: Diminished (decreased breath sounds right base) ...Clubbing: No Gastrointestinal: Yes: Normal Bowel Sounds, Soft Renal/: Yes: Other (right flank with draining wound) Edema: No Labs: Laboratory Results - last 24 hr 06/24/19 06/24/19 06/24/19 06:08 09:09 19:00 WBC RBC Hgb Hct MCV MCH MCHC RDW Plt Count MPV Absolute Neuts (auto) Neutrophils % Lymphocytes % Monocytes % Eosinophils % Basophils % Nucleated RBC % PT with INR INR PTT (Actin FS) Sodium Potassium Chloride Carbon Dioxide Anion Gap BUN Creatinine Est GFR (CKD-EPI)AfAm Est GFR (CKD-EPI)NonAf Random Glucose Hemoglobin A1c % 6.2 Lactic Acid 3.7 H* 4.1 H* Calcium Magnesium Total Bilirubin AST ALT Alkaline Phosphatase Total Protein Albumin 06/25/19 06/25/19 06/25/19 00:50 03:42 07:45 WBC 13.4 H RBC 3.26 L Hgb 9.2 L Hct 28.1 L MCV 86.1 MCH 28.3 MCHC 32.9 RDW 16.8 H Plt Count 285 MPV 7.2 L Absolute Neuts (auto) 11.8 H Neutrophils % 88.0 H Lymphocytes % 6.1 L D Monocytes % 4.2 Eosinophils % 1.4 D Basophils % 0.3 Nucleated RBC % 0 PT with INR INR PTT (Actin FS) Sodium Potassium Chloride Carbon Dioxide Anion Gap BUN Creatinine Est GFR (CKD-EPI)AfAm Est GFR (CKD-EPI)NonAf Random Glucose Hemoglobin A1c % Lactic Acid Cancelled 1.5 Calcium Magnesium Total Bilirubin AST ALT Alkaline Phosphatase Total Protein Albumin 06/25/19 06/25/19 07:45 07:45 WBC RBC Hgb Hct MCV MCH MCHC RDW Plt Count MPV Absolute Neuts (auto) Neutrophils % Lymphocytes % Monocytes % Eosinophils % Basophils % Nucleated RBC % PT with INR 19.40 H INR 1.64 H PTT (Actin FS) 31.7 Sodium 138 Potassium 4.1 Chloride 107 Carbon Dioxide 23 Anion Gap 8 BUN 27.2 H Creatinine 1.2 Est GFR (CKD-EPI)AfAm 67.67 Est GFR (CKD-EPI)NonAf 58.39 Random Glucose 114 H Hemoglobin A1c % Lactic Acid Calcium 8.1 L Magnesium 1.9 Total Bilirubin 0.8 AST 40 H ALT 30 Alkaline Phosphatase 59 Total Protein 5.4 L Albumin 1.3 L Assessment/Plan Right Retroperitoneal Abscess Renal Cell Carcinoma s/p Recent R Nephrectomy Sepsis Lactic Acidosis Atrial Fibrillation LV Systolic Dysfunction HTN Hyperlipidemia Right Pleural Effusion Anemia - IV antibiotics - f/u cultures - IVF - pleural effusion appears chronic, similar to CT chest Sept 2018, may have a trapped lung - can monitor effusion as outpt - can defer further thoracentesis unless pt symptomatic - rate control Dr Oliver
[2019-06-25] MEDS ORDERED: LIDOCAINE HCL/PF 2% SDV 5ML VIAL ONE (11:25)
[2019-06-25] MEDS ORDERED: PROPOFOL 20 ML ONE (11:25)
[2019-06-25] MEDS ORDERED: DEXAMETHASONE SOD PHOSPHATE 4 MG/1 ML VIAL ONE (11:25)
[2019-06-25] MEDS ORDERED: BACITRACIN 15 GM TUBE TOPICAL OINTMENT ONE (11:29)
[2019-06-25] MEDS ORDERED: ROCURONIUM BROMIDE 50 MG/5 ML SYRINGE ONE (11:57)
[2019-06-25] MEDS ORDERED: SUCCINYLCHOLINE CHLORIDE 200 MG/10 ML SYRINGE ONE (12:09)
--- NOTE | 2019-06-25 12:18 | PN ---
Physical Exam: SUBJECTIVE: Patient seen and examined in the ICU. Feels well, in no acute distress. hypotensive but asymptomatic. OBJECTIVE: Patient is a 78 year old male with a significant past medical history of hypertension, hld, afib who is s/p elective laparoscopic R radical nephrectomy on 05/18/2019 for a right kidney mass. Patient presents to the ED on 06/23/2019 for right lower abdomen cellulitis, with foul smelling drainage of surgical site. He is now POD #1: s/p incision/drainage right flank abscess and wound exploration which found multiple loculated collections involving the subcutaneous space and fascia layer. Vital Signs Period Temp Pulse Resp BP Sys/Blanco Pulse Ox Last 24 Hr 97.6 F-97.8 F 61-96 18-75 96-125/54-81 96-100 GENERAL: The patient is awake, alert, and fully oriented, in no acute distress. denies pain or discomfort. HEAD: Normal with no signs of trauma. EYES: PERRL, extraocular movements intact, sclera anicteric, conjunctiva clear. No ptosis. ENT: Ears normal, nares patent, oropharynx clear without exudates, moist mucous membranes. NECK: Trachea midline, full range of motion, supple. LUNGS: Breath sounds equal, decreased at right base HEART: Regular rate and rhythm ABDOMEN: anterior abdomen around umbilicus surgical sites without redness or erythema. small pigtail with evita drain on anterior lower right abdomen with sero sang drainage in bulb. bulb is to gravity. larger bulb on flank with purulent drainage. lower right abdomen wound dehisence with sero sang drainage. EXTREMITIES: 2+ pulses, warm, well-perfused, no edema. NEUROLOGICAL: Normal speech, gait not observed. Laboratory Results - last 24 hr 06/24/19 06/25/19 06/25/19 19:00 00:50 03:42 WBC RBC Hgb Hct MCV MCH MCHC RDW Plt Count MPV Absolute Neuts (auto) Neutrophils % Lymphocytes % Monocytes % Eosinophils % Basophils % Nucleated RBC % PT with INR INR PTT (Actin FS) Sodium Potassium Chloride Carbon Dioxide Anion Gap BUN Creatinine Est GFR (CKD-EPI)AfAm Est GFR (CKD-EPI)NonAf Random Glucose Lactic Acid 4.1 H* Cancelled 1.5 Calcium Magnesium Total Bilirubin AST ALT Alkaline Phosphatase Total Protein Albumin 06/25/19 06/25/19 06/25/19 07:45 07:45 07:45 WBC 13.4 H RBC 3.26 L Hgb 9.2 L Hct 28.1 L MCV 86.1 MCH 28.3 MCHC 32.9 RDW 16.8 H Plt Count 285 MPV 7.2 L Absolute Neuts (auto) 11.8 H Neutrophils % 88.0 H Lymphocytes % 6.1 L D Monocytes % 4.2 Eosinophils % 1.4 D Basophils % 0.3 Nucleated RBC % 0 PT with INR 19.40 H INR 1.64 H PTT (Actin FS) 31.7 Sodium 138 Potassium 4.1 Chloride 107 Carbon Dioxide 23 Anion Gap 8 BUN 27.2 H Creatinine 1.2 Est GFR (CKD-EPI)AfAm 67.67 Est GFR (CKD-EPI)NonAf 58.39 Random Glucose 114 H Lactic Acid Calcium 8.1 L Magnesium 1.9 Total Bilirubin 0.8 AST 40 H ALT 30 Alkaline Phosphatase 59 Total Protein 5.4 L Albumin 1.3 L Active Medications Generic Name Dose Route Start Last Admin Trade Name Freq PRN Reason Stop Dose Admin Acetaminophen 650 mg 06/24/19 09:28 Tylenol - PO Q6H PRN PAIN LEVEL 4 - 6 Atorvastatin Calcium 20 mg 06/24/19 22:00 06/24/19 22:29 Lipitor - PO 20 mg HS LAUREN Administration Docusate Sodium 100 mg 06/24/19 05:35 Colace - PO BID PRN CONSTIPATION Lactated Ringer's 1,000 ml in 1,000 mls @ 100 mls/hr 06/24/19 04:00 06/25/19 05:57 Lactated Ringers Solution IV 100 mls/hr ASDIR LAUREN Administration Piperacillin Sod/Tazobactam 50 mls @ 100 mls/hr 06/25/19 03:00 06/25/19 10:13 Sod 3.375 gm/ Dextrose IVPB 100 mls/hr Q6H-IV LAUREN Administration Protocol Vancomycin HCl 1,000 mg in 250 mls @ 166.667 mls/hr 06/24/19 18:00 06/25/19 05:58 Vancomycin (Pre-Docked) IVPB 166.667 mls/hr Q12H LAUREN Administration Protocol Metoprolol Succinate 200 mg 06/24/19 10:00 06/25/19 10:13 Toprol Xl - PO 200 mg DAILY [facility] Administration Polyethylene Glycol 17 gm 06/24/19 10:00 06/25/19 10:14 Miralax (For Daily Use) - PO 17 gm DAILY [facility] Administration Sacubitril/Valsartan 1 tab 06/24/19 11:00 06/25/19 10:15 Entresto 97 Mg-103 Mg Tablet PO 1 tab BID [facility] Administration ASSESSMENT/PLAN: Problem List - Problems (1) Severe sepsis Assessment/Plan: POD #2: s/p incision/drainage right flank abscess and wound exploration leukocytosis trending down. on zosyn. abdominal/pelvis CT: interval development of a 9.5x 0.7x 6.4cm complex fluid structure seen with the right renal fossa suggestive of abscess formation. also noted is development of a right lateral flank subcutaneous 5.4 x 2.7cm collection which may represent additional abscess. Code(s): A41.9 - SEPSIS, UNSPECIFIED ORGANISM; R65.20 - SEVERE SEPSIS WITHOUT SEPTIC SHOCK (2) Abdominal fluid collection Assessment/Plan: patient with two abscess formation as noted on ct abdomen. POD #2: s/p incision/drainage right flank abscess and wound exploration on zosyn monitor output Code(s): R18.8 - OTHER ASCITES (3) Abdominal wall abscess at site of surgical wound Assessment/Plan: see above Code(s): T81.49XA - INFECTION FOLLOWING A PROCEDURE, OTHER SURGICAL SITE, INIT (4) Afib Assessment/Plan: permanent afib rate control with toprol holding eliquis for surgical intervention restart per cardiology Code(s): I48.91 - UNSPECIFIED ATRIAL FIBRILLATION (5) HLD (hyperlipidemia) Assessment/Plan: continue home medications Code(s): E78.5 - HYPERLIPIDEMIA, UNSPECIFIED (6) HTN (hypertension) Assessment/Plan: controlled, continue cardiac medications and monitor. Code(s): I10 - ESSENTIAL (PRIMARY) HYPERTENSION (7) History of nephrectomy, right Assessment/Plan: s/p nephrectomy removal on 05/18/19, monitor intake and output. urology following Code(s): Z90.5 - ACQUIRED ABSENCE OF KIDNEY (8) Systolic CHF Assessment/Plan: on entresto monitor daily intake and output will put in for daily weights Code(s): I50.20 - UNSPECIFIED SYSTOLIC (CONGESTIVE) HEART FAILURE (9) Prophylactic measure Assessment/Plan: fen cautious with IVF secondary to systolic chf on low salt diet monitor electrolytes dvt prophy: eliquis on hold. SCDs prevention: bowel regimen protonix SCDs early ambulation incentive spirometer. Code(s): Z29.9 - ENCOUNTER FOR PROPHYLACTIC MEASURES, UNSPECIFIED (10) DVT prophylaxis Assessment/Plan: hold eliquis, start on SCDs. Code(s): Z29.9 - ENCOUNTER FOR PROPHYLACTIC MEASURES, UNSPECIFIED Visit type - Emergency Visit Emergency Visit: Yes ED Registration Date: 06/24/19 Care time: The patient presented to the Emergency Department on the above date and was hospitalized for further evaluation of their emergent condition. - New Patient This patient is new to me today: No - Critical Care Critical Care patient: Yes Total Critical Care Time (in minutes): 60 Critical Care Statement: The care of this patient involved high complexity decision making to prevent further life threatening deterioration of the patient 's condition and/or to evaluate & treat vital organ system(s) failure or risk of failure.
[2019-06-25] MEDS ORDERED: GLYCOPYRROLATE 0.2 MG/1 ML VIAL ONE (12:59)
[2019-06-25] MEDS ORDERED: KETOROLAC TROMETHAMINE 30 MG/1 ML VIAL ONE (13:00)
[2019-06-25] MEDS ORDERED: NEOSTIGMINE METHYLSULFATE 0.5 MG/ML - 10 ML MDV ONE (13:00)
[2019-06-25] MEDS ORDERED: PROMETHAZINE HCL 25 MG/1 ML VIAL IVPUSH PRN ×2 (13:22→14:13)
[2019-06-25] MEDS ORDERED: ONDANSETRON 4 MG/2 ML VIAL IVPUSH PRN ×2 (13:22→14:13)
[2019-06-25] MEDS ORDERED: LACTATED RINGERS SOLUTION 1,000 ML IV SCH (13:30)
--- NOTE | 2019-06-25 14:09 | OP ---
Operative Note - Note: Operative Date: 06/25/19 Pre-Operative Diagnosis: deep flank abscess s/p laparoscopic right nephrectomy Operation: incision / drainage right flank abscess and wound exploration Findings: multiple loculated collections involving the subcutaneous space and fascial layer w/open peritoneum medially at site of previous port and incision to remove the kidney. Surgeon: Jesse Oro Mold Closer Helper: Debbie Jesus Anesthesiologist/APPRENTICESHIP REPRESENTATIVE: Simón Merlos Anesthesia: General Specimens Removed: intra abdominal ? hematoma; infected Estimated Blood Loss (mls): 100 Drains & Tubes with Location: 10 mm EDE intra abdominal and Kerlix packing
[2019-06-25] MEDS ORDERED: ACETAMINOPHEN 325 MG TABLET (FP) PO PRN (14:13)
[2019-06-25] MEDS ORDERED: DOCUSATE SODIUM 100 MG CAPSULE (FP) PO PRN (14:13)
[2019-06-25] MEDS: LACTATED RINGERS SOLUTION 1,000 ML IV SCH (14:19)
--- NOTE | 2019-06-25 14:19 | SURG ---
Surgery National Insurance Officer Note National Insurance Officer: Debbie Jesus PA-C Date of Service: 06/25/19 Diagnosis: deep flank abscess s/p laparoscopic right nephrectomy Procedure: incision / drainage right flank abscess and wound exploration I was present for the entirety of the operative procedure. For further detail, please refer to operative report. Visit type - Case Type Case Type: ED Admission - Emergency Emergency Visit: Yes ED Registration Date: 06/24/19 Care time: The patient presented to the Emergency Department on the above date and was hospitalized for further evaluation of their emergent condition. - New patient This patient is new to me today: Yes Date on this admission: 06/25/19
--- NOTE | 2019-06-25 14:49 | PN ---
Progress Note (short form) - Note Progress Note: s: s/p abscess drainage and wound exploration, post op monitoring in ICU. no chest pain, palps, dizziness, dyspnea Current Medications Acetaminophen (Tylenol -) 650 mg PO Q6H PRN PRN Reason: PAIN LEVEL 4 - 6 Atorvastatin Calcium (Lipitor -) 20 mg PO HS [facility] Chlorhexidine Gluconate (Hibiclens For Decolonization -) 1 applic TP HS [facility] Docusate Sodium (Colace -) 100 mg PO BID PRN PRN Reason: CONSTIPATION Fentanyl (Sublimaze Injection -) 50 mcg IVPUSH [id number] PRN PRN Reason: PAIN-PACU ORDER X 4 DOSES ONLY Lactated Ringer's (Lactated Ringers Solution) 1,000 mls @ 125 mls/hr IV ASDIR [facility] Last Admin: 06/25/19 14:19 Dose: 125 mls/hr Piperacillin Sod/Tazobactam (Sod 3.375 gm/ Dextrose) 50 mls @ 100 mls/hr IVPB Q6H-IV [facility]; Protocol Last Admin: 06/25/19 14:19 Dose: 100 mls/hr Vancomycin HCl (Vancomycin (Pre-Docked)) 1,000 mg in 250 mls @ 166.667 mls/hr IVPB Q12H [facility]; Protocol Metoprolol Succinate (Toprol Xl -) 200 mg PO DAILY [facility] Mupirocin (Bactroban Ointment (For Decolonization) -) 1 applic NS BID [facility] Stop: 06/30/19 21:59 Ondansetron HCl (Zofran Injection) 4 mg IVPUSH Q6H PRN PRN Reason: NAUSEA AND/OR VOMITING Polyethylene Glycol (Miralax (For Daily Use) -) 17 gm PO DAILY [facility] Promethazine HCl (Phenergan Injection -) 12.5 mg IVPUSH Q6H PRN PRN Reason: NAUSEA-FOR RESCUE AFTER 15 MIN Sacubitril/Valsartan (Entresto 97 Mg-103 Mg Tablet) 1 tab PO BID [facility] pe: Vital Signs Period Temp Pulse Resp BP Sys/Blanco Pulse Ox Last 24 Hr 97 F-97.8 F 61-113 18-75 86-125/54-90 92-100 nad no jvd irreg, s1s2, no r/g, +murmur no jaundice diaphoresis cta bl nl eff aao3 no le e/c/c abd nt nd pos bs pos dp pt no carotid bruits ecg: afib, rate ok, lvh with repol changes, no sig change prior cxr: chronic changes tele: afib rate controlled, PVCs a/p: 78 m hx syst chf, ar/as, pafib, htn, hld here with drainage from wound sepsis, abscess, s/p R nephrectomy - manage per urology, ID - s/p abscess drainage and wound debridement - resume eliquis when able per surgery pafib: -cont bb for rate control -holding eliquis as above syst chf: -euvolemic, monitor volume status receiving IVF for sepsis - Cont bb, entresto as/ar: Pt denies symptoms. Outpt f/u. hld: -cont statin htn: -cont home meds
--- NOTE | 2019-06-25 16:29 | PN ---
Progress Note, Physician Chief Complaint: Post-operative ICU monitoring for R nephrectomy complicated by retroperitoneal abscess s/p drainage and debridement. History of Present Illness: 78yo male with h/o HTN, hyperlipidemia, atrial fibrillation, recently diagnosed renal cell carcinoma s/p right nephrectomy Apr 2019 who was admitted with drainage from surgical site. Drainage is rust colored, foul smelling. Denies fevers, chills or chills. Found to have a right sided pleural effusion on abdominal imaging. On a previous admission, he had a right thoracentesis which was negative for malignancy but exudative. Current imaging appears similar. Denies shortness of breath, cough or wheezing. No chest discomfort. He is a remote smoker, no history of asthma or COPD. Pt is s/p debridement, per surgeon, there appeared to be multiple locoulated collections involving the subcutaneous space. Pt may require transfer to tertiary care facility for further management. - Current Medication List Current Medications: Active Medications Acetaminophen (Tylenol -) 650 mg PO Q6H PRN PRN Reason: PAIN LEVEL 4 - 6 Atorvastatin Calcium (Lipitor -) 20 mg PO HS [facility] Chlorhexidine Gluconate (Hibiclens For Decolonization -) 1 applic TP HS [facility] Docusate Sodium (Colace -) 100 mg PO BID PRN PRN Reason: CONSTIPATION Fentanyl (Sublimaze Injection -) 50 mcg IVPUSH [id number] PRN PRN Reason: PAIN-PACU ORDER X 4 DOSES ONLY Lactated Ringer's (Lactated Ringers Solution) 1,000 mls @ 125 mls/hr IV ASDIR [facility] Last Admin: 06/25/19 14:19 Dose: 125 mls/hr Piperacillin Sod/Tazobactam (Sod 3.375 gm/ Dextrose) 50 mls @ 100 mls/hr IVPB Q6H-IV [facility]; Protocol Last Admin: 06/25/19 14:19 Dose: 100 mls/hr Vancomycin HCl (Vancomycin (Pre-Docked)) 1,000 mg in 250 mls @ 166.667 mls/hr IVPB Q12H [facility]; Protocol Metoprolol Succinate (Toprol Xl -) 200 mg PO DAILY [facility] Mupirocin (Bactroban Ointment (For Decolonization) -) 1 applic NS BID [facility] Stop: 06/30/19 21:59 Ondansetron HCl (Zofran Injection) 4 mg IVPUSH Q6H PRN PRN Reason: NAUSEA AND/OR VOMITING Polyethylene Glycol (Miralax (For Daily Use) -) 17 gm PO DAILY [facility] Promethazine HCl (Phenergan Injection -) 12.5 mg IVPUSH Q6H PRN PRN Reason: NAUSEA-FOR RESCUE AFTER 15 MIN Sacubitril/Valsartan (Entresto 97 Mg-103 Mg Tablet) 1 tab PO BID [facility] - Objective Vital Signs: Vital Signs Temperature 97 F L 06/25/19 15:24 Pulse Rate 97 H 06/25/19 15:24 Respiratory Rate 18 06/25/19 15:24 Blood Pressure 86/53 L 06/25/19 15:24 O2 Sat by Pulse Oximetry (%) 97 06/25/19 15:24 Physical Exam: GENERAL: The patient is awake, alert, and fully oriented, in no acute distress. denies pain or discomfort. HEAD: Normal with no signs of trauma. EYES: PERRL, extraocular movements intact, sclera anicteric, conjunctiva clear. No ptosis. ENT: Ears normal, nares patent, oropharynx clear without exudates, moist mucous membranes. NECK: Trachea midline, full range of motion, supple. LUNGS: Breath sounds equal, decreased at right base HEART: Regular rate and rhythm ABDOMEN: anterior abdomen around umbilicus surgical sites without redness or erythema. small pigtail with evita drain on anterior lower right abdomen with sero sang drainage in bulb. bulb is to gravity. larger bulb on flank with purulent drainage. EXTREMITIES: 2+ pulses, warm, well-perfused, no edema. NEUROLOGICAL: Normal speech, gait not observed. Labs: CBC, BMP 06/25/19 07:45 06/25/19 07:45 INR, PTT INR 1.64 (0.83-1.09) H 06/25/19 07:45 Impression/Plan Impression/Plan: 78yo male with h/o HTN, hyperlipidemia, atrial fibrillation, recently diagnosed renal cell carcinoma s/p right nephrectomy Apr 2019 who was admitted with drainage from surgical site. Now POD #1: s/p incision/drainage right flank abscess and wound exploration. # Neuro - AAO x 3 # CV Atrial Fibrillation LV Systolic Dysfunction HTN Hyperlipidemia Anemia - permanent afib, rate control with toprol - holding eliquis s/p surgical intervention, resume as per primary team. SCDs for DVT ppx. - HLD: continue home medications - HTN: controlled, continue cardiac medications and monitor. - CHF: continue entresto, monitor daily weights, Is+Os #Pulm Right Pleural Effusion - pleural effusion appears chronic, similar to CT chest Sept 2018, may have a trapped lung - can monitor effusion as outpt - can defer further thoracentesis unless pt symptomatic #Renal Right Retroperitoneal Abscess Renal Cell Carcinoma s/p Recent R Nephrectomy Sepsis Lactic Acidosis - abdominal/pelvis CT: interval development of a 9.5x 0.7x 6.4cm complex fluid structure seen with the right renal fossa suggestive of abscess formation. also noted is development of a right lateral flank subcutaneous 5.4 x 2.7cm collection which may represent additional abscess. - POD #1: s/p incision/drainage right flank abscess and wound exploration - Urology and General Surgery following, appreciate recommendations - Post op care as per surgery - leukocytosis trending down. - on vanc/ zosyn. - f/u cultures - IVF - trend lactate #FEN - replete lytes PRN - low Na diet #PPx DVT: SCDs GI: Protonix Dispo: Pt may require higher level of care, discussed with patient who would like to discuss case with his family and urologist prior to consenting to transfer. Visit type - Emergency Visit Emergency Visit: Yes ED Registration Date: 06/24/19 Care time: The patient presented to the Emergency Department on the above date and was hospitalized for further evaluation of their emergent condition. - New Patient This patient is new to me today: Yes Date on this admission: 06/25/19 - Critical Care Critical Care patient: Yes Total Critical Care Time (in minutes): 40 Critical Care Statement: The care of this patient involved high complexity decision making to prevent further life threatening deterioration of the patient's condition and/or to evaluate & treat vital organ system(s) failure or risk of failure. ATTENDING PHYSICIAN STATEMENT I saw and evaluated the patient. I reviewed the resident's note and discussed the case with the resident. I agree with the resident's findings and plan as documented. SUBJECTIVE: OBJECTIVE: ASSESSMENT AND PLAN:
--- NOTE | 2019-06-25 18:07 | CON.GU ---
Consult - History of Present Illness History of Present Illness: 78 yo male s/p uncomplicated rt laparoscopic nephrectomy on 05/18/2019 for RCC. Now admitted with purulent drainage from RLQ extraction site, abd wall cellulitis and findings of abscess in rt renal fossa. Underwent perc drainage of rt retroperitoneal abscee yesterday and I and D of RLQ subcutanoes abd wall abscess today. Currently feels better. Still with tachycardia. Of note patients has been having normal bowel movements and had one also this am. - Past Medical History Cardio/Vascular: Yes: AFIB, HTN, Hyperlipdemia - Alcohol/Substance Use Hx Alcohol Use: Yes (OCCASIONAL) - Smoking History Smoking history: Former smoker Have you smoked in the past 12 months: No If you are a former smoker, when did you quit?: 12 YEARS AGO Home Medications - Allergies Allergies/Adverse Reactions: Allergies Allergy/AdvReac Type Severity Reaction Status Date / Time amlodipine Allergy Severe Swelling Verified 06/24/19 01:30 - Home Medications Home Medications: Ambulatory Orders Atorvastatin Ca [Lipitor] 20 mg PO DAILY 03/19/19 Metoprolol Succinate 200 mg PO DAILY 03/19/19 Acetaminophen [Tylenol .Regular Strength -] 325 mg PO Q6H PRN tablet 05/22/19 Apixaban [Eliquis -] 5 mg PO BID tablet 05/22/19 Docusate Sodium [Colace -] 100 mg PO BID PRN capsule 05/22/19 Polyethylene Glycol 3350 [Miralax 119 gm Btl -] 17 gm PO DAILY #1 bottle Physical Exam- Vital Signs: Vital Signs Temperature 97 F L 06/25/19 15:24 Pulse Rate 97 H 06/25/19 15:24 Respiratory Rate 18 06/25/19 15:24 Blood Pressure 86/53 L 06/25/19 15:24 O2 Sat by Pulse Oximetry (%) 97 06/25/19 15:24 Labs: CBC, BMP 06/25/19 07:45 06/25/19 07:45 Imaging - Results Cat Scan: Report Reviewed, Image Reviewed Problem List - Problems (1) Abdominal wall abscess at site of surgical wound Assessment/Plan: discussed case at length with family and Dr Oro. Pt to continue IV abx, ICU monitoring for now. If fails to improve may require further surgical exploration. In light of intensive wound care and monitoring, Dr Oro feels pt is best served at a tertiary care center. I have discussed case with Dr Apodaca at [facility] who will accept the patient when bed available Code(s): T81.49XA - INFECTION FOLLOWING A PROCEDURE, OTHER SURGICAL SITE, INIT
[2019-06-25] MEDS ORDERED: LACTATED RINGERS SOLUTION 1000 ML INFUS.BAG IV ONE ×2 (19:28→22:06)
--- NOTE | 2019-06-25 19:44 | PN ---
Progress Note (short form) - Note Progress Note: s/p operative drainage of abscess he is alert and extubated feels better Vital Signs Period Temp Pulse Resp BP Sys/Blanco Pulse Ox Last 24 Hr 97 F-97.8 F 61-113 18-75 84-120/53-90 92-97 cor-rrr lungs clear abd -soft, less erythema, +drains ext +edema CBC, BMP 06/25/19 07:45 06/25/19 07:45 Microbiology 06/24/19 15:15 Abscess Gram Stain - Final 06/24/19 03:59 Abscess Gram Stain - Final 06/24/19 03:59 Abscess Wound Culture - Preliminary Streptococcus Species Alpha Hemolytic Streptococcus 06/24/19 02:49 Abdomen Gram Stain - Final 06/24/19 02:49 Abdomen Wound Culture - Preliminary Streptococcus Species Alpha Hemolytic Streptococcus 06/24/19 02:00 Blood - Peripheral Venous Blood Culture - Preliminary Pending Organism 06/24/19 02:00 Blood - Peripheral Venous Blood Culture - Preliminary NO GROWTH OBTAINED AFTER 24 HOURS, INCUBATION TO CONTINUE FOR 4 DAYS. a/p abscess- continue vanco/zosyn check vancomycin trough bacteremia secondary to abscess repeat blood cultures RLE swelling r/o dvt- duplex ordered history afib s/p nephrectomy for RCC prostate ca- on medical treatment d/w icu team
[2019-06-25] MEDS ORDERED: SODIUM CHLORIDE 500 ML IV STA (22:21)
[2019-06-25] MEDS: MUPIROCIN 2% TOPICAL OINTMENT FOR DECOLONIZATION NS SCH (22:32)
[2019-06-25] MEDS: ATORVASTATIN CA 20 MG TABLET (FP) PO SCH (22:33)
[2019-06-25] MEDS: CHLORHEXIDINE GLUCONATE 4% CLEANSER FOR DECOLONIZATION TP SCH (22:33)
[2019-06-25] MEDS ORDERED: LACTATED RINGERS SOLUTION 1,000 ML/1,000 ML INFUS.BAG IV STA (23:11)
[2019-06-26] MEDS ORDERED: LACTATED RINGERS SOLUTION 1,000 ML/1,000 ML INFUS.BAG IV STA (02:14)
[2019-06-26] MEDS ORDERED: LACTATED RINGERS SOLUTION 1000 ML INFUS.BAG IV SCH (02:15)
[2019-06-26] MEDS ORDERED: DEXTROSE 5%-WATER - 50 ML IVPB ONE ×4 (02:52→20:15)
[2019-06-26] MEDS ORDERED: PIPERACILLIN/TAZOBACTAM 3.375 GM VIAL IVPB ONE ×4 (02:52→20:15)
[2019-06-26] MEDS: PIPERACILLIN/TAZOB 3.375 GM 3.375 GM in DEXTROSE 5%-WATER - 50 ML IVPB SCH ×4 (02:57→20:39)
[2019-06-26] MEDS: LACTATED RINGERS SOLUTION 1000 ML INFUS.BAG IV SCH ×2 (05:30→08:24)
[2019-06-26] MEDS: VANCOMYCIN 1 GRAM (PRE-DOCKED) 1,000 MG/250 ML BAG IVPB SCH ×2 (05:56→18:08)
[2019-06-26 06:46] LABS: BASO % 0.2 % (0-2.0); HEMATOCRIT 29.4 % (35.4-49); HEMOGLOBIN 9.8 GM/dL (11.7-16.9); LYMPH % 4.3 % (8-40); MCH 28.7 pg (25.7-33.7); MCHC 33.3 g/dl (32.0-35.9); MEAN CELL VOLUME 86.4 fl (80-96); MEAN PLT VOLUME 7.3 fl (7.5-11.1); MONO % 2.5 % (3.8-10.2); PLATELET COUNT 289 K/MM3 (134-434); RDW 16.2 % (11.9-15.9); WHITE BLOOD COUNT 16.8 K/mm3 (4.0-10.0)
[2019-06-26 06:51] LABS: INR 1.58 (0.83-1.09); PROTHROMBIN TIME (PATIENT) 18.7 SEC (9.7-13.0)
[2019-06-26 06:53] LABS: ACTIVATED PTT 31.4 SECONDS (25.2-36.5)
[2019-06-26 06:56] LABS: ALBUMIN 1.2 g/dl (3.4-5.0); BILIRUBIN,TOTAL 0.9 mg/dL (0.2-1); BLOOD UREA NITROGEN 30.4 mg/dL (7-18); CALCIUM 7.4 mg/dL (8.5-10.1); CREATININE 1.1 mg/dL (0.55-1.3); MAGNESIUM 1.7 mg/dL (1.8-2.4); PHOSPHOROUS 4.3 mg/dL (2.5-4.9); POTASSIUM 4.6 mmol/L (3.5-5.1); TOT PROT 4.8 g/dl (6.4-8.2)
[2019-06-26] MEDS ORDERED: MAGNESIUM SULF 50% (8.12 MEQ/2 ML-1 GM VIAL) IVPB ONE (08:38)
--- NOTE | 2019-06-26 09:06 | PN ---
Progress Note (short form) - Note Progress Note: patient feels well Tm 97.4 BP 117/65 HR 89 abd soft with RLQ tenderness continue wound care and drainage. IV abx. blood cultures are positive and pending.
[2019-06-26 09:33] LABS: ANISOCYTOSIS 1+; MACROCYTOSIS 0; PLATELET ESTIMATE NORMAL
[2019-06-26] MEDS: SACUBITRIL/VALSARTAN 97 MG-103 MG TABLET PO SCH (09:59)
[2019-06-26] MEDS: MUPIROCIN 2% TOPICAL OINTMENT FOR DECOLONIZATION NS SCH ×2 (09:59→22:26)
[2019-06-26] MEDS: LACTATED RINGERS SOLUTION 1,000 ML IV SCH (10:00)
[2019-06-26] MEDS: POLYETHYLENE GLYCOL 3350 119 GM BTL PO SCH (10:02)
--- NOTE | 2019-06-26 10:05 | PN ---
Progress Note, Physician Chief Complaint: no CP, SOB, palps TELE: controlled AF - Current Medication List Current Medications: Active Medications Acetaminophen (Tylenol -) 650 mg PO Q6H PRN PRN Reason: PAIN LEVEL 4 - 6 Atorvastatin Calcium (Lipitor -) 20 mg PO HS [facility] Last Admin: 06/25/19 22:33 Dose: Not Given Chlorhexidine Gluconate (Hibiclens For Decolonization -) 1 applic TP HS [facility] Last Admin: 06/25/19 22:33 Dose: 1 applic Docusate Sodium (Colace -) 100 mg PO BID PRN PRN Reason: CONSTIPATION Fentanyl (Sublimaze Injection -) 50 mcg IVPUSH [id number] PRN PRN Reason: PAIN-PACU ORDER X 4 DOSES ONLY Lactated Ringer's (Lactated Ringers Solution) 1,000 mls @ 125 mls/hr IV ASDIR [facility] Last Admin: 06/26/19 10:00 Dose: 125 mls/hr Piperacillin Sod/Tazobactam (Sod 3.375 gm/ Dextrose) 50 mls @ 100 mls/hr IVPB Q6H-IV [facility]; Protocol Last Admin: 06/26/19 09:58 Dose: 100 mls/hr Vancomycin HCl (Vancomycin (Pre-Docked)) 1,000 mg in 250 mls @ 166.667 mls/hr IVPB Q12H [facility]; Protocol Last Admin: 06/26/19 05:56 Dose: 166.667 mls/hr Metronidazole (Flagyl 500mg Premixed Ivpb -) 500 mg in 100 mls @ 100 mls/hr IVPB Q8H-IV [facility] Magnesium Sulfate (Magnesium Sulfate) 1 gm IVPB ONCE ONE Stop: 06/26/19 08:39 Metoprolol Succinate (Toprol Xl -) 200 mg PO DAILY [facility] Last Admin: 06/26/19 10:00 Dose: Not Given Mupirocin (Bactroban Ointment (For Decolonization) -) 1 applic NS BID [facility] Stop: 06/30/19 21:59 Last Admin: 06/26/19 09:59 Dose: 1 applic Ondansetron HCl (Zofran Injection) 4 mg IVPUSH Q6H PRN PRN Reason: NAUSEA AND/OR VOMITING Polyethylene Glycol (Miralax (For Daily Use) -) 17 gm PO DAILY [facility] Last Admin: 06/26/19 10:02 Dose: Not Given Promethazine HCl (Phenergan Injection -) 12.5 mg IVPUSH Q6H PRN PRN Reason: NAUSEA-FOR RESCUE AFTER 15 MIN Sacubitril/Valsartan (Entresto 97 Mg-103 Mg Tablet) 1 tab PO BID [facility] Last Admin: 06/26/19 09:59 Dose: 1 tab - Objective Vital Signs: Vital Signs Temperature 97.5 F L 06/26/19 10:00 Pulse Rate 88 06/26/19 10:00 Respiratory Rate 17 06/26/19 10:00 Blood Pressure 100/66 06/26/19 10:00 O2 Sat by Pulse Oximetry (%) 97 06/25/19 21:00 Constitutional: Yes: No Distress Cardiovascular: Yes: Pulse Irregular Respiratory: Yes: CTA Bilaterally Gastrointestinal: Yes: Soft (drains in place) Edema: No Neurological: Yes: Alert, Oriented ...Motor Strength: WNL Labs: CBC, BMP 06/26/19 05:40 06/26/19 05:40 INR, PTT INR 1.58 (0.83-1.09) H 06/26/19 05:40 Assessment/Plan ecg: afib, rate ok, lvh with repol changes, no sig change prior cxr: chronic changes tele: afib rate controlled, PVCs a/p: 78 m hx syst chf, ar/as, pafib, htn, hld here with drainage from wound sepsis, abscess, s/p R nephrectomy: - manage per urology, ID - s/p abscess drainage and wound debridement - resume eliquis when able per surgery pafib: -cont bb for rate control -holding eliquis as above syst chf: -euvolemic, monitor volume status receiving IVF for sepsis - Cont bb, entresto as/ar: Pt denies symptoms. Outpt f/u. hld: -cont statin htn: -cont home meds
--- NOTE | 2019-06-26 10:10 | PN ---
Progress Note (short form) - Note Progress Note: alert, resting comfortably required ivf overnight for hypotension s/p operative drainage of abscess pod #1 ames inserted overnight for urinary retention Vital Signs Period Temp Pulse Resp BP Sys/Blanco Pulse Ox Last 24 Hr 97 F-97.9 F 87-113 17-28 84-120/53-90 92-97 cor-rrr lungs clear abd soft, +induration right flank, posterior drain with purulent discharge, anterior drain serous clear fluid, wound anteriorly is draining +foulsmelling ext +edema CBC, BMP 06/26/19 05:40 06/26/19 05:40 Microbiology 06/24/19 02:00 Blood - Peripheral Venous Blood Culture - Preliminary Pending Organism 06/24/19 15:15 Abscess Gram Stain - Final 06/24/19 03:59 Abscess Gram Stain - Final 06/24/19 03:59 Abscess Wound Culture - Preliminary Streptococcus Species Alpha Hemolytic Streptococcus 06/24/19 02:49 Abdomen Gram Stain - Final 06/24/19 02:49 Abdomen Wound Culture - Preliminary Streptococcus Species Alpha Hemolytic Streptococcus 06/24/19 02:00 Blood - Peripheral Venous Blood Culture - Preliminary Pending Organism vanco trough 16.8 a/p abscess- f/u cultures continue vanco/zosyn-will add flagyl bacteremia secondary to abscess-gram positive repeat blood cultures echo ordered history afib s/p nephrectomy for RCC prostate ca- on medical treatment poor nutritional status will be a major issue - albumin is 1.2 d/w icu team
--- NOTE | 2019-06-26 11:15 | OP ---
DATE OF OPERATION: 06/25/2019 PREOPERATIVE DIAGNOSIS: Deep right flank abscess status post laparoscopic right nephrectomy. POSTOPERATIVE DIAGNOSIS: Deep right flank abscess status post laparoscopic right nephrectomy. PROCEDURE: Incision and drainage of right flank abscess and wound exploration status post right laparoscopic nephrectomy. SURGEON: Jesse Oro MD TECHNOLOGY ENGINEER: ASHANTI Cifuentes ANESTHESIA: General. OPERATIVE FINDINGS: There were multiple loculated collections in the site of a previous laparoscopic port and extraction site of a right kidney status post laparoscopic right nephrectomy on May 18, 2019. The abscess and collections involve the subcutaneous space and fascial layers with opening into the peritoneum immediately at the site of the previous port and incision to remove the kidney as stated previously. There was no evidence of intra-abdominal fecal contamination. There was some seropurulent, coagulated material. The rest of the findings were unremarkable. DESCRIPTION OF PROCEDURE: The patient was placed on the operating room table in supine position. After successful induction of general anesthesia, he was turned to the left lateral decubitus position and maintained there with the aid of the josé bag. The right flank was prepped and draped with Betadine, and a time-out was taken. Incision was made with a scalpel through the previous right nephrectomy extraction site and taken down through skin and subcutaneous tissue where the previously noted findings were observed. Copious purulent material was sent for culture and sensitivity and the depth of the wound explored looking for the site of the origin of the purulent drainage, which was found to be from the peritoneal cavity. Extensive irrigation was carried out until no more purulence was identified. The previously noted findings were again observed. At this point, after all loculations were broken up using blunt dissection, hemostasis was secured with electrocautery. A 10-mm J-P drain was placed into the peritoneal cavity and brought out through uninvolved skin of the right flank and secured to the skin with 2-0 silk suture. The peritoneum was partially closed using 2-0 Vicryl. Next, hemostasis was checked for again and the wound irrigated with saline and peroxide and packed with saline-soaked Kerlix packing followed by dry, sterile dressings. The drain was connected to bulb suction and then dry, sterile dressings were placed and the patient aroused from general anesthesia and transferred to the post anesthesia care unit in stable condition awake and alert. ESTIMATED BLOOD LOSS: 100 mL. REPLACEMENTS: Crystalloid. DRAINS: One 10-mm Waldemar-Cervantes intra-abdominal and Kerlix packing. SPECIMEN: Hematoma to Pathology. I, Jesse Oro, was physically present in the operating room from the time the patient was placed on the operating room table until he was transferred to the medical intensive care unit in stable condition awake and alert. MD EMIL Adler/[id number] MTDD
--- NOTE | 2019-06-26 11:58 | PN ---
Teaching Attending Note Name of Resident: Pat Saucedo ATTENDING PHYSICIAN STATEMENT I saw and evaluated the patient. I reviewed the resident's note and discussed the case with the resident. I agree with the resident's findings and plan as documented. SUBJECTIVE: Patient seen and examined in the ICU. Resting in NAD on RA. No CP or SOB. No acute events overnight. Intake & Output 06/23/19 06/24/19 06/25/19 06/26/19 23:59 23:59 23:59 23:59 Intake Total 4175 3300 Output Total 620 400 Balance 3555 2900 Weight 232 lb 269 lb 6.4 oz Last Vital Signs Temp Pulse Resp BP Pulse Ox 97.5 F L 88 17 100/66 97 06/26/19 10:00 06/26/19 10:00 06/26/19 10:00 06/26/19 10:00 06/25/19 21:00 Active Medications Acetaminophen (Tylenol -) 650 mg PO Q6H PRN PRN Reason: PAIN LEVEL 4 - 6 Atorvastatin Calcium (Lipitor -) 20 mg PO HS [facility] Last Admin: 06/25/19 22:33 Dose: Not Given Chlorhexidine Gluconate (Hibiclens For Decolonization -) 1 applic TP HS [facility] Last Admin: 06/25/19 22:33 Dose: 1 applic Docusate Sodium (Colace -) 100 mg PO BID PRN PRN Reason: CONSTIPATION Fentanyl (Sublimaze Injection -) 50 mcg IVPUSH [id number] PRN PRN Reason: PAIN-PACU ORDER X 4 DOSES ONLY Lactated Ringer's (Lactated Ringers Solution) 1,000 mls @ 125 mls/hr IV ASDIR LAUREN Last Admin: 06/26/19 10:00 Dose: 125 mls/hr Piperacillin Sod/Tazobactam (Sod 3.375 gm/ Dextrose) 50 mls @ 100 mls/hr IVPB Q6H-IV LAUREN; Protocol Last Admin: 06/26/19 09:58 Dose: 100 mls/hr Vancomycin HCl (Vancomycin (Pre-Docked)) 1,000 mg in 250 mls @ 166.667 mls/hr IVPB Q12H LAUREN; Protocol Last Admin: 06/26/19 05:56 Dose: 166.667 mls/hr Metronidazole (Flagyl 500mg Premixed Ivpb -) 500 mg in 100 mls @ 100 mls/hr IVPB Q8H-IV LAUREN Metoprolol Succinate (Toprol Xl -) 200 mg PO DAILY [facility] Last Admin: 06/26/19 10:00 Dose: Not Given Mupirocin (Bactroban Ointment (For Decolonization) -) 1 applic NS BID [facility] Stop: 06/30/19 21:59 Last Admin: 06/26/19 09:59 Dose: 1 applic Ondansetron HCl (Zofran Injection) 4 mg IVPUSH Q6H PRN PRN Reason: NAUSEA AND/OR VOMITING Polyethylene Glycol (Miralax (For Daily Use) -) 17 gm PO DAILY [facility] Last Admin: 06/26/19 10:02 Dose: Not Given Promethazine HCl (Phenergan Injection -) 12.5 mg IVPUSH Q6H PRN PRN Reason: NAUSEA-FOR RESCUE AFTER 15 MIN Sacubitril/Valsartan (Entresto 97 Mg-103 Mg Tablet) 1 tab PO BID [facility] Last Admin: 06/26/19 09:59 Dose: 1 tab Constitutional: Yes: NAD Eyes: Yes: Conjunctiva Clear, EOM Intact HENT: Yes: Atraumatic, Normocephalic Neck: Yes: Supple, Trachea Midline Cardiovascular: Yes: Regular Rate and Rhythm Respiratory: Yes: Diminished (decreased breath sounds right base) ...Clubbing: No Gastrointestinal: Yes: Normal Bowel Sounds, Soft Renal/: Yes: Other (right flank with draining wound) Edema: No Labs: Laboratory Results - last 24 hr 06/26/19 06/26/19 06/26/19 00:00 05:40 05:40 WBC 16.8 H RBC 3.40 L Hgb 9.8 L Hct 29.4 L MCV 86.4 MCH 28.7 MCHC 33.3 RDW 16.2 H Plt Count 289 MPV 7.3 L Absolute Neuts (auto) 15.6 H Neutrophils % 93.0 H Neutrophils % (Manual) 92.1 H Band Neutrophils % 0.0 Lymphocytes % 4.3 L D Lymphocytes % (Manual) 4.9 L D Monocytes % 2.5 L Monocytes % (Manual) 0 L D Eosinophils % 0.0 D Eosinophils % (Manual) 0.0 Basophils % 0.2 Basophils % (Manual) 0.0 Myelocytes % (Man) 2 Promyelocytes % (Man) 0 Blast Cells % (Manual) 0 Nucleated RBC % 0 Metamyelocytes 1 D Hypochromia 1+ Platelet Estimate Normal Polychromasia 1+ Poikilocytosis 0 Anisocytosis 1+ Microcytosis 0 Macrocytosis 0 PT with INR INR PTT (Actin FS) Sodium Potassium Chloride Carbon Dioxide Anion Gap BUN Creatinine Est GFR (CKD-EPI)AfAm Est GFR (CKD-EPI)NonAf Random Glucose Lactic Acid 2.6 H* Calcium Phosphorus Magnesium Total Bilirubin AST ALT Alkaline Phosphatase Total Protein Albumin Random Vancomycin 16.8 L 06/26/19 06/26/19 06/26/19 05:40 05:40 06:00 WBC RBC Hgb Hct MCV MCH MCHC RDW Plt Count MPV Absolute Neuts (auto) Neutrophils % Neutrophils % (Manual) Band Neutrophils % Lymphocytes % Lymphocytes % (Manual) Monocytes % Monocytes % (Manual) Eosinophils % Eosinophils % (Manual) Basophils % Basophils % (Manual) Myelocytes % (Man) Promyelocytes % (Man) Blast Cells % (Manual) Nucleated RBC % Metamyelocytes Hypochromia Platelet Estimate Polychromasia Poikilocytosis Anisocytosis Microcytosis Macrocytosis PT with INR 18.70 H INR 1.58 H PTT (Actin FS) 31.4 Sodium 137 Potassium 4.6 Chloride 108 H Carbon Dioxide 21 Anion Gap 8 BUN 30.4 H Creatinine 1.1 Est GFR (CKD-EPI)AfAm 75.18 Est GFR (CKD-EPI)NonAf 64.86 Random Glucose 133 H Lactic Acid 1.8 Calcium 7.4 L Phosphorus 4.3 Magnesium 1.7 L Total Bilirubin 0.9 AST 18 ALT 20 Alkaline Phosphatase 49 Total Protein 4.8 L Albumin 1.2 L Random Vancomycin Assessment/Plan Right Retroperitoneal Abscess Renal Cell Carcinoma s/p Recent R Nephrectomy Sepsis Lactic Acidosis Atrial Fibrillation LV Systolic Dysfunction HTN Hyperlipidemia Right Pleural Effusion Anemia - IV antibiotics per ID - f/u cultures - IVF, can reduce rate pending BP stabilized - pleural effusion appears chronic, similar to CT chest Sept 2018, may have a trapped lung - can monitor effusion as outpt - can defer further thoracentesis unless pt symptomatic - rate control - For possible to [facility] for further surgical intervention Dr Oliver
--- NOTE | 2019-06-26 14:11 | PN ---
Physical Exam: SUBJECTIVE: Patient seen and examined. No acute events overnight. Patient continues to saturate R abdominal dressing w/ clear/ yellow discharge. Hypotension improving, BP now 98/55. Will continue to monitor. OBJECTIVE: Vital Signs Period Temp Pulse Resp BP Sys/Blanco Pulse Ox Last 24 Hr 97 F-97.9 F 86-113 17-28 84-120/53-90 92-98 GENERAL: The patient is awake, alert, and fully oriented, in no acute distress. HEENT: NCAT PERRLA LUNGS: Breath sounds equal, clear to auscultation bilaterally, no wheezes, no crackles, no accessory muscle use. HEART: Regular rate and rhythm, S1, S2 without murmur, rub or gallop. ABDOMEN: Surgical site on ant. abdomen c/d/i no signs of infection, w/ dressing. EDE drain in place c/d/i on anterior lower right abdomen draining serosanguinous fluid. Larger bulb preesnt on flank continues to drain purulent foul smelling discharge. EXTREMITIES: 2+ pulses, warm, well-perfused, no edema. NEUROLOGICAL: Cranial nerves II through XII grossly intact. PSYCH: Normal mood, normal affect. SKIN: Warm, dry, normal turgor, no rashes or lesions noted Laboratory Results - last 24 hr Laboratory Last Values WBC 16.8 K/mm3 (4.0-10.0) H 06/26/19 05:40 RBC 3.40 M/mm3 (4.00-5.60) L 06/26/19 05:40 Hgb 9.8 GM/dL (11.7-16.9) L 06/26/19 05:40 Hct 29.4 % (35.4-49) L 06/26/19 05:40 MCV 86.4 fl (80-96) 06/26/19 05:40 MCH 28.7 pg (25.7-33.7) 06/26/19 05:40 MCHC 33.3 g/dl (32.0-35.9) 06/26/19 05:40 RDW 16.2 % (11.9-15.9) H 06/26/19 05:40 Plt Count 289 K/MM3 (134-434) 06/26/19 05:40 MPV 7.3 fl (7.5-11.1) L 06/26/19 05:40 Absolute Neuts (auto) 15.6 K/mm3 (1.5-8.0) H 06/26/19 05:40 Total Counted 100 06/24/19 02:24 Neutrophils % 93.0 % (42.8-82.8) H 06/26/19 05:40 Neutrophils % (Manual) 92.1 % (42.8-82.8) H 06/26/19 05:40 Band Neutrophils % 0.0 % 06/26/19 05:40 Lymphocytes % 4.3 % (8-40) L D 06/26/19 05:40 Lymphocytes % (Manual) 4.9 % (8-40) L D 06/26/19 05:40 Monocytes % 2.5 % (3.8-10.2) L 06/26/19 05:40 Monocytes % (Manual) 0 % (3.8-10.2) L D 06/26/19 05:40 Eosinophils % 0.0 % (0-4.5) D 06/26/19 05:40 Eosinophils % (Manual) 0.0 % (0-4.5) 06/26/19 05:40 Basophils % 0.2 % (0-2.0) 06/26/19 05:40 Basophils % (Manual) 0.0 % (0-2.0) 06/26/19 05:40 Myelocytes % (Man) 2 % (0-2) 06/26/19 05:40 Promyelocytes % (Man) 0 % (0-2) 06/26/19 05:40 Blast Cells % (Manual) 0 % (0-0) 06/26/19 05:40 Nucleated RBC % 0 % (0-0) 06/26/19 05:40 Metamyelocytes 1 % (0-2) D 06/26/19 05:40 Smudge Cells Few 06/24/19 02:24 Hypochromia 1+ 06/26/19 05:40 Toxic Granulation Few 06/24/19 02:24 Platelet Estimate Normal 06/26/19 05:40 Platelet Comment No clumping noted 06/24/19 02:24 Platelet Comment No clotting detected 06/24/19 02:24 Polychromasia 1+ 06/26/19 05:40 Poikilocytosis 0 06/26/19 05:40 Anisocytosis 1+ 06/26/19 05:40 Microcytosis 0 06/26/19 05:40 Macrocytosis 0 06/26/19 05:40 PT with INR 18.70 SEC (9.7-13.0) H 06/26/19 05:40 INR 1.58 (0.83-1.09) H 06/26/19 05:40 PTT (Actin FS) 31.4 SECONDS (25.2-36.5) 06/26/19 05:40 VBG pH 7.42 (7.31-7.41) H 06/24/19 02:00 POC VBG pCO2 34.5 mmHg (38-52) L 06/24/19 02:00 POC VBG pO2 < 49 mmHg (28-48) H 06/24/19 02:00 VBG HCO3 22.2 mmol/L (23-29) L 06/24/19 02:00 VBG O2 Sat (Wai) 75.9 % (70-80) 06/24/19 02:00 VBG Base Excess -1.3 meq/l (-2-2) 06/24/19 02:00 Sodium 137 mmol/L (136-145) 06/26/19 05:40 Potassium 4.6 mmol/L (3.5-5.1) 06/26/19 05:40 Chloride 108 mmol/L (98-107) H 06/26/19 05:40 Carbon Dioxide 21 mmol/L (21-32) 06/26/19 05:40 Anion Gap 8 MMOL/L (8-16) 06/26/19 05:40 BUN 30.4 mg/dL (7-18) H 06/26/19 05:40 Creatinine 1.1 mg/dL (0.55-1.3) 06/26/19 05:40 Est GFR (CKD-EPI)AfAm 75.18 06/26/19 05:40 Est GFR (CKD-EPI)NonAf 64.86 06/26/19 05:40 Random Glucose 133 mg/dL (74-106) H 06/26/19 05:40 Hemoglobin A1c % 6.2 % (4.2-6.3) 06/24/19 06:08 Lactic Acid 1.8 mmol/L (0.4-2.0) 06/26/19 06:00 Calcium 7.4 mg/dL (8.5-10.1) L 06/26/19 05:40 Phosphorus 4.3 mg/dL (2.5-4.9) 06/26/19 05:40 Magnesium 1.7 mg/dL (1.8-2.4) L 06/26/19 05:40 Iron 11 ug/dL (50-175) L 06/24/19 06:08 TIBC 99 ug/dL (250-450) L 06/24/19 06:08 Iron Saturation 11 % (17.5-39) L 06/24/19 06:08 Unsaturated IBC 88 ug/dL (200-275) L 06/24/19 06:08 Ferritin 519.3 ng/ml (8-388) H 06/24/19 06:08 Total Bilirubin 0.9 mg/dL (0.2-1) 06/26/19 05:40 AST 18 U/L (15-37) 06/26/19 05:40 ALT 20 U/L (13-61) 06/26/19 05:40 Alkaline Phosphatase 49 U/L (45-117) 06/26/19 05:40 Troponin I < 0.02 ng/ml (0.00-0.05) 06/24/19 02:24 Total Protein 4.8 g/dl (6.4-8.2) L 06/26/19 05:40 Albumin 1.2 g/dl (3.4-5.0) L 06/26/19 05:40 Random Vancomycin 16.8 ug/ml (18-26) L 06/26/19 05:40 Active Medications Current Medications Acetaminophen (Tylenol -) 650 mg PO Q6H PRN PRN Reason: PAIN LEVEL 4 - 6 Atorvastatin Calcium (Lipitor -) 20 mg PO [facility] Last Admin: 06/25/19 22:33 Dose: Not Given Chlorhexidine Gluconate (Hibiclens For Decolonization -) 1 applic TP [facility] Last Admin: 06/25/19 22:33 Dose: 1 applic Docusate Sodium (Colace -) 100 mg PO BID PRN PRN Reason: CONSTIPATION Fentanyl (Sublimaze Injection -) 50 mcg IVPUSH [id number] PRN PRN Reason: PAIN-PACU ORDER X 4 DOSES ONLY Lactated Ringer's (Lactated Ringers Solution) 1,000 mls @ 125 mls/hr IV ASDIR [facility]UREN Last Admin: 06/26/19 10:00 Dose: 125 mls/hr Piperacillin Sod/Tazobactam (Sod 3.375 gm/ Dextrose) 50 mls @ 100 mls/hr IVPB Q6H-IV LAUREN; Protocol Last Admin: 06/26/19 09:58 Dose: 100 mls/hr Vancomycin HCl (Vancomycin (Pre-Docked)) 1,000 mg in 250 mls @ 166.667 mls/hr IVPB Q12H LAUREN; Protocol Last Admin: 06/26/19 05:56 Dose: 166.667 mls/hr Metronidazole (Flagyl 500mg Premixed Ivpb -) 500 mg in 100 mls @ 100 mls/hr IVPB Q8H-IV [facility] Last Admin: 06/26/19 12:02 Dose: 100 mls/hr Metoprolol Succinate (Toprol Xl -) 200 mg PO DAILY [facility] Last Admin: 06/26/19 10:00 Dose: Not Given Mupirocin (Bactroban Ointment (For Decolonization) -) 1 applic NS BID [facility] Stop: 06/30/19 21:59 Last Admin: 06/26/19 09:59 Dose: 1 applic Ondansetron HCl (Zofran Injection) 4 mg IVPUSH Q6H PRN PRN Reason: NAUSEA AND/OR VOMITING Polyethylene Glycol (Miralax (For Daily Use) -) 17 gm PO DAILY [facility] Last Admin: 06/26/19 10:02 Dose: Not Given Promethazine HCl (Phenergan Injection -) 12.5 mg IVPUSH Q6H PRN PRN Reason: NAUSEA-FOR RESCUE AFTER 15 MIN Sacubitril/Valsartan (Entresto 97 Mg-103 Mg Tablet) 1 tab PO BID [facility] Last Admin: 06/26/19 09:59 Dose: 1 tab ASSESSMENT/PLAN: 78 y.o. M PMH HTN, hyperlipidemia, atrial fibrillation, recently diagnosed renal cell carcinoma s/p right nephrectomy Apr 2019 who was admitted with drainage from surgical site. Today POD #1 s/p I&D right flank abscess and wound exploration. # Neuro -AAO x 3 -no acute issues #CV -Hx of Atrial Fibrillation on eliquis, LV Systolic Dysfunction, HTN, HLD -continue home metoprolol 200mg daily; continue entresto -holding eliquis s/p surgical intervention, may resume as per primary team -continue statin -monitor daily weights -monitor Is+Os #Pulm -Right base pleural eff, appearing chronic, similar to CT chest Sept 2018, may have a trapped lung-- may monitor as outpatient -can defer further thoracentesis unless pt symptomatic -maintain SaO2 >90% #Renal -Hx renal cell CA s/p R nephrectomy -Right Retroperitoneal Abscess -abdominal/pelvis CT: interval development of a 9.5x 0.7x 6.4cm complex fluid structure seen with the right renal fossa suggestive of abscess formation. Also noted is development of a right lateral flank subcutaneous 5.4 x 2.7cm collection which may represent additional abscess. -POD #1: s/p incision/drainage right flank abscess and wound exploration w/ Dr. Oro -Uro, surgery following -change abdominal dressing prn -cr stable continue to monitor renal labs #ID -leukocytosis , f/u repeat cbc -on vanc/ zosyn -abdominal cultures growing strep species -f/u final organisms, f/u blood cultures -afebrile #FENLTD -LR @125cc/hr -replete lytes PRN -low Na diet -peripheral IVs -R abdomen 10 mm EDE intra abdominal drains x2 placed 06/25/2019 #PPx -SCDs; holding eliquis -Protonix #Dispo -transfer to med surg Visit type - Emergency Visit Emergency Visit: Yes ED Registration Date: 06/24/19 Care time: The patient presented to the Emergency Department on the above date and was hospitalized for further evaluation of their emergent condition. - New Patient This patient is new to me today: Yes Date on this admission: 06/26/19 - Critical Care Critical Care patient: Yes Total Critical Care Time (in minutes): 45 Critical Care Statement: The care of this patient involved high complexity decision making to prevent further life threatening deterioration of the patient 's condition and/or to evaluate & treat vital organ system(s) failure or risk of failure. ATTENDING PHYSICIAN STATEMENT I saw and evaluated the patient. I reviewed the resident's note and discussed the case with the resident. I agree with the resident's findings and plan as documented. SUBJECTIVE: OBJECTIVE: ASSESSMENT AND PLAN:
--- NOTE | 2019-06-26 15:19 | ECHO ---
Name: JON ALFARO Exam:Adult Echocardiogram Study Date: 06/26/2019 12:52 PM Age: 78 yrs Reason For Study: r/o endocarditis, strep bacteremia Height: 72 in Weight: 269 lb BSA: 2.4 m2 MMode/2D Measurements & Calculations IVSd: 1.1 cm Ao root diam: 4.5 cm LVIDd: 6.9 cm LA dimension: 5.2 cm LVIDs: 5.6 cm ACS: 0.71 cm LVPWd: 1.0 cm IVSs: 1.3 cm LVPWs: 1.4 cm EDV(Teich): 245.6 ml ESV(Teich): 154.9 ml EPSS: 2.2 cm LVOT diam: 2.8 cm Doppler Measurements & Calculations Ao V2 max: 244.4 cm/sec AI max agata: 348.0 cm/sec Ao max P.2 mmHg AI max P.4 mmHg Ao V2 mean: 181.5 cm/sec Ao mean P.7 mmHg AI dec slope: 155.5 cm/sec2 Ao V2 VTI: 41.7 cm MISSY(I,D): 2.4 cm2 AI P1/2t: 655.5 msec MISSY(V,D): 2.1 cm2 LV V1 max P.9 mmHg MR max agata: 280.2 cm/sec LV V1 mean P.6 mmHg MR max P.8 mmHg LV V1 max: 84.6 cm/sec LV V1 mean: 60.3 cm/sec LV V1 VTI: 16.6 cm SV(LVOT): 100.8 ml TR max agata: 233.8 cm/sec TR max P.1 mmHg Left Ventricle Left ventricular systolic function is moderate to severely reduced. Ejection Fraction = 35-40%. Septa l motion is consistent with conduction abnormality. There is moderate to severe global hypokinesis of the left ventricle. Right Ventricle The right ventricle is normal in size and function. Atria The left atrium is moderately dilated. Mitral Valve The mitral valve is grossly normal. There is no mitral valve stenosis. There is mild mitral regurgita tion. Tricuspid Valve The tricuspid valve is normal in structure and function. There is mild tricuspid regurgitation. Right ventricular systolic pressure is normal. Aortic Valve Moderate mostly focal calcification of the aortic valve. In some views, there is a small mobile echod ensity on the left ventricular side of the aortic valve which may represent an artifact from calcification. How ever, a small vegetation cannot be excluded. Clinical correlation required. Consider ALBERTO if clinically indica shikha. Mild to moderate valvular aortic stenosis. Pulmonic Valve The pulmonic valve is not well seen, but is grossly normal. There is no pulmonic valvular stenosis. T race pulmonic valvular regurgitation. Great Vessels Moderate aortic root dilatation. Pericardium/Pleura There is no pericardial effusion. Interpretation Summary Septal motion is consistent with conduction abnormality. There is moderate to severe global hypokinesis of the left ventricle. Left ventricular systolic function is moderate to severely reduced. Ejection Fraction = 35-40%. The right ventricle is normal in size and function. The left atrium is moderately dilated. There is mild mitral regurgitation. There is mild tricuspid regurgitation. Moderate aortic root dilatation. Moderate mostly focal calcification of the aortic valve. In some views, there is a small mobile echod ensity on the left ventricular side of the aortic valve which may represent an artifact from calcification. How ever, a small vegetation cannot be excluded. Clinical correlation required. Consider ALBERTO if clinically indica shikha. Mild to moderate valvular aortic stenosis. MD Irving *Ivanna 06/26/2019 03:19 PM
[2019-06-26] MEDS: CHLORHEXIDINE GLUCONATE 4% CLEANSER FOR DECOLONIZATION TP SCH (22:25)
[2019-06-26] MEDS ORDERED: PT OWN MED DRAWER 7, Y5N ONE (22:28)
[2019-06-26] MEDS: ATORVASTATIN CA 20 MG TABLET (FP) PO SCH (22:33)
[2019-06-27] MEDS: SACUBITRIL/VALSARTAN 97 MG-103 MG TABLET PO SCH ×3 (00:12→21:21)
[2019-06-27] MEDS ORDERED: PIPERACILLIN/TAZOBACTAM 3.375 GM VIAL IVPB ONE ×4 (01:41→21:11)
[2019-06-27] MEDS ORDERED: DEXTROSE 5%-WATER - 50 ML IVPB ONE ×4 (01:41→21:11)
[2019-06-27] MEDS: LACTATED RINGERS SOLUTION 1,000 ML IV SCH ×3 (01:47→20:16)
[2019-06-27] MEDS: PIPERACILLIN/TAZOB 3.375 GM 3.375 GM in DEXTROSE 5%-WATER - 50 ML IVPB SCH ×4 (02:45→21:20)
[2019-06-27] MEDS: VANCOMYCIN 1 GRAM (PRE-DOCKED) 1,000 MG/250 ML BAG IVPB SCH ×2 (06:33→17:25)
[2019-06-27 07:06] LABS: BASO % 0.1 % (0-2.0); EOS % 0.1 % (0-4.5); HEMATOCRIT 27.4 % (35.4-49); HEMOGLOBIN 9.1 GM/dL (11.7-16.9); LYMPH % 4.2 % (8-40); MCH 28.6 pg (25.7-33.7); MCHC 33.2 g/dl (32.0-35.9); MEAN CELL VOLUME 86.2 fl (80-96); MEAN PLT VOLUME 6.9 fl (7.5-11.1); MONO % 3.1 % (3.8-10.2); NEUT % 92.5 % (42.8-82.8); PLATELET COUNT 315 K/MM3 (134-434); RBC 3.17 M/mm3 (4.00-5.60); RDW 16.3 % (11.9-15.9); WHITE BLOOD COUNT 16.8 K/mm3 (4.0-10.0)
[2019-06-27 07:32] LABS: ALBUMIN 1.2 g/dl (3.4-5.0); BILIRUBIN,TOTAL 0.8 mg/dL (0.2-1); BLOOD UREA NITROGEN 23.1 mg/dL (7-18); CALCIUM 7.9 mg/dL (8.5-10.1); CREATININE 1.1 mg/dL (0.55-1.3); PHOSPHOROUS 3.9 mg/dL (2.5-4.9); POTASSIUM 4.6 mmol/L (3.5-5.1); TOT PROT 4.8 g/dl (6.4-8.2)
[2019-06-27 07:47] LABS: INR 1.32 (0.83-1.09); PROTHROMBIN TIME (PATIENT) 15.6 SEC (9.7-13.0)
[2019-06-27 07:50] LABS: ACTIVATED PTT 29.2 SECONDS (25.2-36.5)
--- NOTE | 2019-06-27 08:55 | PN ---
Physical Exam: SUBJECTIVE: Patient seen and examined at the bedside. at bedside. patient is s/p I&D and denies any pain or malaise. OBJECTIVE: Patient is a 78 year old male with a significant past medical history of hypertension, hld, afib who is s/p elective laparoscopic R radical nephrectomy on 05/18/2019 for a right kidney mass. Patient presents to the ED on 06/23/2019 for right lower abdomen cellulitis, with foul smelling drainage of surgical site. He is now s/p incision/drainage right flank abscess and wound exploration which found multiple loculated collections involving the subcutaneous space and fascia layer. Patient continues to saturate right abdominal dressing with sero reinoso/yellow discharge. Hypotensive today. Vital Signs Period Temp Pulse Resp BP Sys/Blanco Pulse Ox Last 24 Hr 97.4 F-97.9 F 60-90 15-20 93-114/55-77 96-98 GENERAL: The patient is awake, alert, and fully oriented, in no acute distress. denies pain or discomfort. HEAD: Normal with no signs of trauma. EYES: PERRL, extraocular movements intact, sclera anicteric, conjunctiva clear. No ptosis. ENT: Ears normal, nares patent, oropharynx clear without exudates, moist mucous membranes. NECK: Trachea midline, full range of motion, supple. LUNGS: Breath sounds equal, decreased at right base HEART: Regular rate and rhythm ABDOMEN: anterior abdomen around umbilicus surgical sites without redness or erythema. small pigtail with evita drain on anterior lower right abdomen with sero sang drainage in bulb. bulb is to gravity. larger bulb on flank with purulent drainage. lower right abdomen wound dehiscence with sero sang drainage. EXTREMITIES: 2+ pulses, warm, well-perfused, no edema. NEUROLOGICAL: Normal speech, gait not observed. Laboratory Results - last 24 hr 06/26/19 06/27/19 06/27/19 05:40 05:50 05:50 WBC 16.8 H RBC 3.17 L Hgb 9.1 L Hct 27.4 L MCV 86.2 MCH 28.6 MCHC 33.2 RDW 16.3 H Plt Count 315 MPV 6.9 L Absolute Neuts (auto) 15.5 H Neutrophils % 92.5 H Neutrophils % (Manual) 92.1 H Band Neutrophils % 0.0 Lymphocytes % 4.2 L Lymphocytes % (Manual) 4.9 L D Monocytes % 3.1 L Monocytes % (Manual) 0 L D Eosinophils % 0.1 D Eosinophils % (Manual) 0.0 Basophils % 0.1 Basophils % (Manual) 0.0 Myelocytes % (Man) 2 Promyelocytes % (Man) 0 Blast Cells % (Manual) 0 Nucleated RBC % 0 0 Metamyelocytes 1 D Hypochromia 1+ Platelet Estimate Normal Polychromasia 1+ Poikilocytosis 0 Anisocytosis 1+ Microcytosis 0 Macrocytosis 0 PT with INR 15.60 H INR 1.32 H PTT (Actin FS) 29.2 Sodium Potassium Chloride Carbon Dioxide Anion Gap BUN Creatinine Est GFR (CKD-EPI)AfAm Est GFR (CKD-EPI)NonAf Random Glucose Calcium Phosphorus Magnesium Total Bilirubin AST ALT Alkaline Phosphatase Total Protein Albumin 06/27/19 05:50 WBC RBC Hgb Hct MCV MCH MCHC RDW Plt Count MPV Absolute Neuts (auto) Neutrophils % Neutrophils % (Manual) Band Neutrophils % Lymphocytes % Lymphocytes % (Manual) Monocytes % Monocytes % (Manual) Eosinophils % Eosinophils % (Manual) Basophils % Basophils % (Manual) Myelocytes % (Man) Promyelocytes % (Man) Blast Cells % (Manual) Nucleated RBC % Metamyelocytes Hypochromia Platelet Estimate Polychromasia Poikilocytosis Anisocytosis Microcytosis Macrocytosis PT with INR INR PTT (Actin FS) Sodium 138 Potassium 4.6 Chloride 108 H Carbon Dioxide 24 Anion Gap 6 L BUN 23.1 H Creatinine 1.1 Est GFR (CKD-EPI)AfAm 75.18 Est GFR (CKD-EPI)NonAf 64.86 Random Glucose 115 H Calcium 7.9 L Phosphorus 3.9 Magnesium 2.0 Total Bilirubin 0.8 AST 15 ALT 15 Alkaline Phosphatase 45 Total Protein 4.8 L Albumin 1.2 L Active Medications Generic Name Dose Route Start Last Admin Trade Name Freq PRN Reason Stop Dose Admin Acetaminophen 650 mg 06/25/19 14:13 Tylenol - PO Q6H PRN PAIN LEVEL 4 - 6 Atorvastatin Calcium 20 mg 06/25/19 22:00 06/26/19 22:33 Lipitor - PO 20 mg HS LAUREN Administration Chlorhexidine Gluconate 1 applic 06/25/19 22:00 06/26/19 22:25 Hibiclens For Decolonization - TP 1 applic HS LAUREN Administration Docusate Sodium 100 mg 06/25/19 14:13 Colace - PO BID PRN CONSTIPATION Lactated Ringer's 1,000 mls @ 125 mls/hr 06/25/19 14:13 06/27/19 01:47 Lactated Ringers Solution IV 125 mls/hr ASDIR LAUREN Administration Piperacillin Sod/Tazobactam 50 mls @ 100 mls/hr 06/25/19 15:00 06/27/19 08:21 Sod 3.375 gm/ Dextrose IVPB 100 mls/hr Q6H-IV LAUREN Administration Protocol Vancomycin HCl 1,000 mg in 250 mls @ 166.667 mls/hr 06/25/19 18:00 06/27/19 06:33 Vancomycin (Pre-Docked) IVPB 166.667 mls/hr Q12H LAUREN Administration Protocol Metronidazole 500 mg in 100 mls @ 100 mls/hr 06/26/19 10:00 06/27/19 01:45 Flagyl 500mg Premixed Ivpb - IVPB 100 mls/hr Q8H-IV LAUREN Administration Metoprolol Succinate 200 mg 06/26/19 10:00 06/26/19 10:00 Toprol Xl - PO Not Given DAILY LAUREN Mupirocin 1 applic 06/25/19 22:00 06/26/19 22:26 Bactroban Ointment (For Decolonization) - NS 06/30/19 21:59 1 applic BID LAUREN Administration Ondansetron HCl 4 mg 06/25/19 14:13 Zofran Injection IVPUSH Q6H PRN NAUSEA AND/OR VOMITING Polyethylene Glycol 17 gm 06/26/19 10:00 06/26/19 10:02 Miralax (For Daily Use) - PO Not Given DAILY LAUREN Promethazine HCl 12.5 mg 06/25/19 14:13 Phenergan Injection - IVPUSH Q6H PRN NAUSEA-FOR RESCUE AFTER 15 MIN Sacubitril/Valsartan 1 tab 06/25/19 22:00 06/27/19 00:12 Entresto 97 Mg-103 Mg Tablet PO 1 tab BID LAUREN Administration ASSESSMENT/PLAN: Problem List - Problems (1) Severe sepsis Assessment/Plan: s/p incision/drainage right flank abscess and wound exploration on 06/25/2019 leukocytosis with slight increase. on zosyn. abdominal/pelvis CT: interval development of a 9.5x 0.7x 6.4cm complex fluid structure seen with the right renal fossa suggestive of abscess formation. also noted is development of a right lateral flank subcutaneous 5.4 x 2.7cm collection which may represent additional abscess. Code(s): A41.9 - SEPSIS, UNSPECIFIED ORGANISM; R65.20 - SEVERE SEPSIS WITHOUT SEPTIC SHOCK (2) Abdominal fluid collection Assessment/Plan: patient with two abscess formation as noted on ct abdomen. Code(s): R18.8 - OTHER ASCITES (3) Abdominal wall abscess at site of surgical wound Assessment/Plan: see above Code(s): T81.49XA - INFECTION FOLLOWING A PROCEDURE, OTHER SURGICAL SITE, INIT (4) Afib Assessment/Plan: permanent afib rate control with toprol holding eliquis for surgical intervention restart per cardiology Code(s): I48.91 - UNSPECIFIED ATRIAL FIBRILLATION (5) HLD (hyperlipidemia) Assessment/Plan: continue home medications Code(s): E78.5 - HYPERLIPIDEMIA, UNSPECIFIED (6) HTN (hypertension) Assessment/Plan: controlled, continue cardiac medications and monitor. Code(s): I10 - ESSENTIAL (PRIMARY) HYPERTENSION (7) History of nephrectomy, right Assessment/Plan: s/p nephrectomy removal on 05/18/19, monitor intake and output. urology following Code(s): Z90.5 - ACQUIRED ABSENCE OF KIDNEY (8) Systolic CHF Assessment/Plan: on entresto monitor daily intake and output will put in for daily weights Code(s): I50.20 - UNSPECIFIED SYSTOLIC (CONGESTIVE) HEART FAILURE (9) Prophylactic measure Assessment/Plan: fen cautious with IVF secondary to systolic chf on low salt diet monitor electrolytes dvt prophy: eliquis on hold. SCDs prevention: bowel regimen protonix SCDs early ambulation incentive spirometer. Code(s): Z29.9 - ENCOUNTER FOR PROPHYLACTIC MEASURES, UNSPECIFIED (10) DVT prophylaxis Assessment/Plan: hold eliquis, start on SCDs. Code(s): Z29.9 - ENCOUNTER FOR PROPHYLACTIC MEASURES, UNSPECIFIED Visit type - Emergency Visit Emergency Visit: Yes ED Registration Date: 06/24/19 Care time: The patient presented to the Emergency Department on the above date and was hospitalized for further evaluation of their emergent condition. - New Patient This patient is new to me today: No - Critical Care Critical Care patient: Yes Total Critical Care Time (in minutes): 40 Critical Care Statement: The care of this patient involved high complexity decision making to prevent further life threatening deterioration of the patient 's condition and/or to evaluate & treat vital organ system(s) failure or risk of failure.
[2019-06-27] MEDS: POLYETHYLENE GLYCOL 3350 119 GM BTL PO SCH (09:55)
--- NOTE | 2019-06-27 10:14 | PN ---
Progress Note, Physician History of Present Illness: No complaints TEle: Afib - Current Medication List Current Medications: Active Medications Acetaminophen (Tylenol -) 650 mg PO Q6H PRN PRN Reason: PAIN LEVEL 4 - 6 Atorvastatin Calcium (Lipitor -) 20 mg PO [facility] Last Admin: 06/26/19 22:33 Dose: 20 mg Chlorhexidine Gluconate (Hibiclens For Decolonization -) 1 applic TP [facility] Last Admin: 06/26/19 22:25 Dose: 1 applic Docusate Sodium (Colace -) 100 mg PO BID PRN PRN Reason: CONSTIPATION Lactated Ringer's (Lactated Ringers Solution) 1,000 mls @ 125 mls/hr IV ASDIR [facility] Last Admin: 06/27/19 01:47 Dose: 125 mls/hr Piperacillin Sod/Tazobactam (Sod 3.375 gm/ Dextrose) 50 mls @ 100 mls/hr IVPB Q6H-IV [facility]; Protocol Last Admin: 06/27/19 08:21 Dose: 100 mls/hr Vancomycin HCl (Vancomycin (Pre-Docked)) 1,000 mg in 250 mls @ 166.667 mls/hr IVPB Q12H [facility]; Protocol Last Admin: 06/27/19 06:33 Dose: 166.667 mls/hr Metronidazole (Flagyl 500mg Premixed Ivpb -) 500 mg in 100 mls @ 100 mls/hr IVPB Q8H-IV [facility] Last Admin: 06/27/19 09:55 Dose: 100 mls/hr Metoprolol Succinate (Toprol Xl -) 200 mg PO DAILY [facility] Last Admin: 06/27/19 09:54 Dose: 200 mg Mupirocin (Bactroban Ointment (For Decolonization) -) 1 applic NS BID [facility] Stop: 06/30/19 21:59 Last Admin: 06/26/19 22:26 Dose: 1 applic Ondansetron HCl (Zofran Injection) 4 mg IVPUSH Q6H PRN PRN Reason: NAUSEA AND/OR VOMITING Polyethylene Glycol (Miralax (For Daily Use) -) 17 gm PO DAILY [facility] Last Admin: 06/27/19 09:55 Dose: Not Given Promethazine HCl (Phenergan Injection -) 12.5 mg IVPUSH Q6H PRN PRN Reason: NAUSEA-FOR RESCUE AFTER 15 MIN Sacubitril/Valsartan (Entresto 97 Mg-103 Mg Tablet) 1 tab PO BID LAUREN Last Admin: 06/27/19 09:56 Dose: 1 tab - Objective Vital Signs: Vital Signs Temperature 97.6 F 06/27/19 06:00 Pulse Rate 83 06/27/19 06:00 Respiratory Rate 16 06/27/19 06:00 Blood Pressure 113/69 06/27/19 06:00 O2 Sat by Pulse Oximetry (%) 96 06/26/19 21:00 Constitutional: Yes: No Distress Cardiovascular: Yes: Pulse Irregular Respiratory: Yes: CTA Bilaterally Edema: No Labs: CBC, BMP 06/27/19 05:50 06/27/19 05:50 INR, PTT INR 1.32 (0.83-1.09) H 06/27/19 05:50 Assessment/Plan a/p: 78 m hx syst chf, ar/as, pafib, htn, hld here with drainage from wound sepsis, abscess, s/p R nephrectomy: - manage per urology, ID - s/p abscess drainage and wound debridement - resume eliquis when able per surgery -Awaiting transfer to [facility] -Awaiting trasfer to [facility] pafib: -cont bb for rate control -holding eliquis as above syst chf: -euvolemic, monitor volume status receiving IVF for sepsis - Cont bb, entresto as/ar: Pt denies symptoms. Outpt f/u. hld: -cont statin htn: -cont home meds
[2019-06-27] MEDS: MUPIROCIN 2% TOPICAL OINTMENT FOR DECOLONIZATION NS SCH ×2 (10:20→21:21)
--- NOTE | 2019-06-27 10:23 | PN ---
Progress Note (short form) - Note Progress Note: alert, resting comfortably s/p operative drainage of abscess pod #2 ames inserted overnight for urinary retention less malodor Vital Signs Period Temp Pulse Resp BP Sys/Blanco Pulse Ox Last 24 Hr 97.4 F-97.9 F 60-90 15-18 93-114/55-77 96 cor-rrr llungs decreased bs at bases abd soft,nt drains in place less flank erythema ext +edema CBC, BMP 06/27/19 05:50 06/27/19 05:50 Microbiology 06/24/19 02:00 Blood - Peripheral Venous Blood Culture - Final Streptococcus Anginosus 06/25/19 22:30 Urine - Urine Clean Catch Urine Culture - Final NO GROWTH OBTAINED 06/24/19 02:49 Abdomen Gram Stain - Final 06/24/19 02:49 Abdomen Wound Culture - Preliminary Streptococcus Anginosus Beta Hemolytic Strep Alpha Hemolytic Streptococcus 06/24/19 15:15 Abscess Gram Stain - Final 06/24/19 15:15 Abscess Body Fluid Culture - Preliminary Streptococcus Species Alpha Hemolytic Streptococcus Beta Hemolytic Strep 06/25/19 12:37 Flank Gram Stain - Final 06/25/19 12:37 Flank Wound Culture - Preliminary Streptococcus Species Alpha Hemolytic Streptococcus Beta Hemolytic Strep 06/26/19 05:40 Blood - Peripheral Venous Blood Culture - Preliminary NO GROWTH OBTAINED AFTER 24 HOURS, INCUBATION TO CONTINUE FOR 4 DAYS. 06/24/19 02:00 Blood - Peripheral Venous Blood Culture - Preliminary Pending Organism 06/24/19 03:59 Abscess Gram Stain - Final 06/24/19 03:59 Abscess Wound Culture - Preliminary Streptococcus Species Alpha Hemolytic Streptococcus vanco trough 16.8 echo noted-unchanged from 12/05 a/p abscess- f/u cultures continue vanco/zosyn/flagy f/u cultures today and modify antibiotics bacteremia secondary to abscess-strep repeat blood cultures are negative echo noted history afib s/p nephrectomy for RCC prostate ca- on medical treatment poor nutritional status will be a major issue - albumin is 1.2 plan for tranfser to tertiary care center d/w control room tender
--- NOTE | 2019-06-27 11:04 | PN ---
COLTON Hickman Note Chief Complaint: feels better - Objective Vital Signs: Vital Signs Temperature 97.6 F 06/27/19 06:00 Pulse Rate 83 06/27/19 06:00 Respiratory Rate 16 06/27/19 06:00 Blood Pressure 113/69 06/27/19 06:00 O2 Sat by Pulse Oximetry (%) 96 06/26/19 21:00 Labs/Additional Data: CBC, BMP 06/27/19 05:50 06/27/19 05:50 INR, PTT INR 1.32 (0.83-1.09) H 06/27/19 05:50 Problem List - Problems (1) Abdominal wall abscess at site of surgical wound Assessment/Plan: Abscess site draining Clinically stable afebrile Cultures consistent with post surgical abscess not GI origin Will cont supportive care Consider re imaging in 48 hours Code(s): T81.49XA - INFECTION FOLLOWING A PROCEDURE, OTHER SURGICAL SITE, INIT
[2019-06-27 11:15] LABS: ANISOCYTOSIS 1+; MACROCYTOSIS 0; OVALOCYTE 1+; PLATELET ESTIMATE NORMAL; TOXIC GRANULATION 1+
--- NOTE | 2019-06-27 12:17 | PN ---
Progress Note (short form) - Note Progress Note: Attending Surgeon POD#2 No c/o VSS AF abdo-soft and non tender; EDE serous; RP drain remains seropurulent; wound yesterday clean and w/o any purulent drainage and viable tissue; o/w negative. WBC16.8 IMP: improving PLAN: Trial of clear liquids and continue IVAB's and wound care and ? reimaging. Jesse Oro MD FACS
--- NOTE | 2019-06-27 15:33 | PN ---
Physical Exam: SUBJECTIVE: Patient seen and examined. feels well, denies any pain. OBJECTIVE: Patient is a 78 year old male with a significant past medical history of hypertension, hld, afib who is s/p elective laparoscopic R radical nephrectomy on 05/18/2019 for a right kidney mass. Patient presents to the ED on 06/23/2019 for right lower abdomen cellulitis, with foul smelling drainage of surgical site. He is now s/p incision/drainage right flank abscess and wound exploration which found multiple loculated collections involving the subcutaneous space and fascia layer. Vital Signs Period Temp Pulse Resp BP Sys/Blanco Pulse Ox Last 24 Hr 97.4 F-98.2 F 60-90 15-21 93-120/53-77 96-96 GENERAL: The patient is awake, alert, and fully oriented, in no acute distress. denies pain or discomfort. HEAD: Normal with no signs of trauma. EYES: PERRL, extraocular movements intact, sclera anicteric, conjunctiva clear. No ptosis. ENT: Ears normal, nares patent, oropharynx clear without exudates, moist mucous membranes. NECK: Trachea midline, full range of motion, supple. LUNGS: Breath sounds equal, decreased at right base HEART: Regular rate and rhythm ABDOMEN: anterior abdomen around umbilicus surgical sites without redness or erythema. small pigtail with evita drain on anterior lower right abdomen. surgical dressing c/d/i. larger bulb on flank with purulent drainage. EXTREMITIES: 2+ pulses, warm, well-perfused, no edema. NEUROLOGICAL: Normal speech, gait not observed. Laboratory Results - last 24 hr 06/27/19 06/27/19 06/27/19 05:50 05:50 05:50 WBC 16.8 H RBC 3.17 L Hgb 9.1 L Hct 27.4 L MCV 86.2 MCH 28.6 MCHC 33.2 RDW 16.3 H Plt Count 315 MPV 6.9 L Absolute Neuts (auto) 15.5 H Neutrophils % 92.5 H Neutrophils % (Manual) 92.0 H Band Neutrophils % 4.0 Lymphocytes % 4.2 L Lymphocytes % (Manual) 0.0 L Monocytes % 3.1 L Monocytes % (Manual) 3 L D Eosinophils % 0.1 D Eosinophils % (Manual) 0.0 Basophils % 0.1 Basophils % (Manual) 0.0 Myelocytes % (Man) 0 D Promyelocytes % (Man) 1 D Blast Cells % (Manual) 0 Nucleated RBC % 0 Metamyelocytes 0 D Hypochromia 0 Toxic Granulation 1+ Platelet Estimate Normal Platelet Comment Present Polychromasia 0 Poikilocytosis 1+ Anisocytosis 1+ Microcytosis 1+ Macrocytosis 0 Spherocytes 1+ Ovalocytes 1+ Nba Cells 1+ PT with INR 15.60 H INR 1.32 H PTT (Actin FS) 29.2 Sodium 138 Potassium 4.6 Chloride 108 H Carbon Dioxide 24 Anion Gap 6 L BUN 23.1 H Creatinine 1.1 Est GFR (CKD-EPI)AfAm 75.18 Est GFR (CKD-EPI)NonAf 64.86 Random Glucose 115 H Calcium 7.9 L Phosphorus 3.9 Magnesium 2.0 Total Bilirubin 0.8 AST 15 ALT 15 Alkaline Phosphatase 45 Total Protein 4.8 L Albumin 1.2 L Active Medications Generic Name Dose Route Start Last Admin Trade Name Freq PRN Reason Stop Dose Admin Acetaminophen 650 mg 06/25/19 14:13 Tylenol - PO Q6H PRN PAIN LEVEL 4 - 6 Atorvastatin Calcium 20 mg 06/25/19 22:00 06/26/19 22:33 Lipitor - PO 20 mg HS LAUREN Administration Chlorhexidine Gluconate 1 applic 06/25/19 22:00 06/26/19 22:25 Hibiclens For Decolonization - TP 1 applic HS LAUREN Administration Docusate Sodium 100 mg 06/25/19 14:13 Colace - PO BID PRN CONSTIPATION Lactated Ringer's 1,000 mls @ 125 mls/hr 06/25/19 14:13 06/27/19 14:26 Lactated Ringers Solution IV 125 mls/hr ASDIR LAUREN Administration Piperacillin Sod/Tazobactam 50 mls @ 100 mls/hr 06/25/19 15:00 06/27/19 14:25 Sod 3.375 gm/ Dextrose IVPB 100 mls/hr Q6H-IV LAUREN Administration Protocol Vancomycin HCl 1,000 mg in 250 mls @ 166.667 mls/hr 06/25/19 18:00 06/27/19 06:33 Vancomycin (Pre-Docked) IVPB 166.667 mls/hr Q12H LAUREN Administration Protocol Metronidazole 500 mg in 100 mls @ 100 mls/hr 06/26/19 10:00 06/27/19 09:55 Flagyl 500mg Premixed Ivpb - IVPB 100 mls/hr Q8H-IV LAUREN Administration Metoprolol Succinate 200 mg 06/26/19 10:00 06/27/19 09:54 Toprol Xl - PO 200 mg DAILY LAUREN Administration Mupirocin 1 applic 06/25/19 22:00 06/27/19 10:20 Bactroban Ointment (For Decolonization) - NS 06/30/19 21:59 1 applic BID LAUREN Administration Ondansetron HCl 4 mg 06/25/19 14:13 Zofran Injection IVPUSH Q6H PRN NAUSEA AND/OR VOMITING Polyethylene Glycol 17 gm 06/26/19 10:00 06/27/19 09:55 Miralax (For Daily Use) - PO Not Given DAILY LAUREN Promethazine HCl 12.5 mg 06/25/19 14:13 Phenergan Injection - IVPUSH Q6H PRN NAUSEA-FOR RESCUE AFTER 15 MIN Sacubitril/Valsartan 1 tab 06/25/19 22:00 06/27/19 09:56 Entresto 97 Mg-103 Mg Tablet PO 1 tab BID LAUREN Administration ASSESSMENT/PLAN: Problem List - Problems (1) Severe sepsis Assessment/Plan: s/p incision/drainage right flank abscess and wound exploration on 06/25/2019 leukocytosis with slight increase. on zosyn. abdominal/pelvis CT: interval development of a 9.5x 0.7x 6.4cm complex fluid structure seen with the right renal fossa suggestive of abscess formation. also noted is development of a right lateral flank subcutaneous 5.4 x 2.7cm collection which may represent additional abscess. Code(s): A41.9 - SEPSIS, UNSPECIFIED ORGANISM; R65.20 - SEVERE SEPSIS WITHOUT SEPTIC SHOCK (2) Abdominal fluid collection Assessment/Plan: patient with two abscess formation as noted on ct abdomen. Code(s): R18.8 - OTHER ASCITES (3) Abdominal wall abscess at site of surgical wound Assessment/Plan: see above Code(s): T81.49XA - INFECTION FOLLOWING A PROCEDURE, OTHER SURGICAL SITE, INIT (4) Afib Assessment/Plan: permanent afib rate control with toprol holding eliquis for surgical intervention restart per cardiology Code(s): I48.91 - UNSPECIFIED ATRIAL FIBRILLATION (5) HLD (hyperlipidemia) Assessment/Plan: continue home medications Code(s): E78.5 - HYPERLIPIDEMIA, UNSPECIFIED (6) HTN (hypertension) Assessment/Plan: controlled, continue cardiac medications and monitor. Code(s): I10 - ESSENTIAL (PRIMARY) HYPERTENSION (7) History of nephrectomy, right Assessment/Plan: s/p nephrectomy removal on 05/18/19, monitor intake and output. urology following Code(s): Z90.5 - ACQUIRED ABSENCE OF KIDNEY (8) Systolic CHF Assessment/Plan: on entresto monitor daily intake and output will put in for daily weights Code(s): I50.20 - UNSPECIFIED SYSTOLIC (CONGESTIVE) HEART FAILURE (9) Prophylactic measure Assessment/Plan: fen cautious with IVF secondary to systolic chf on low salt diet monitor electrolytes dvt prophy: eliquis on hold. SCDs prevention: bowel regimen protonix SCDs early ambulation incentive spirometer. Code(s): Z29.9 - ENCOUNTER FOR PROPHYLACTIC MEASURES, UNSPECIFIED (10) DVT prophylaxis Assessment/Plan: hold eliquis, start on SCDs. Code(s): Z29.9 - ENCOUNTER FOR PROPHYLACTIC MEASURES, UNSPECIFIED Visit type - Emergency Visit Emergency Visit: Yes ED Registration Date: 06/24/19 Care time: The patient presented to the Emergency Department on the above date and was hospitalized for further evaluation of their emergent condition. - New Patient This patient is new to me today: No - Critical Care Critical Care patient: Yes Total Critical Care Time (in minutes): 40 Critical Care Statement: The care of this patient involved high complexity decision making to prevent further life threatening deterioration of the patient 's condition and/or to evaluate & treat vital organ system(s) failure or risk of failure.
--- NOTE | 2019-06-27 15:44 | PN ---
Physical Exam: SUBJECTIVE: Patient seen and examined at the bedside. at bedside. patient is s/p I&D and denies any pain or malaise. OBJECTIVE: Patient is a 78 year old male with a significant past medical history of hypertension, hld, afib who is s/p elective laparoscopic R radical nephrectomy on 05/18/2019 for a right kidney mass. Patient presents to the ED on 06/23/2019 for right lower abdomen cellulitis, with foul smelling drainage of surgical site. He is now s/p incision/drainage right flank abscess and wound exploration which found multiple loculated collections involving the subcutaneous space and fascia layer. Patient continues to saturate right abdominal dressing with sero reinoso/yellow discharge. Hypotensive today. Vital Signs Period Temp Pulse Resp BP Sys/Blanco Pulse Ox Last 24 Hr 97.4 F-98.2 F 60-90 15-21 93-120/53-77 96-96 GENERAL: The patient is awake, alert, and fully oriented, in no acute distress. denies pain or discomfort. HEAD: Normal with no signs of trauma. EYES: PERRL, extraocular movements intact, sclera anicteric, conjunctiva clear. No ptosis. ENT: Ears normal, nares patent, oropharynx clear without exudates, moist mucous membranes. NECK: Trachea midline, full range of motion, supple. LUNGS: Breath sounds equal, decreased at right base HEART: Regular rate and rhythm ABDOMEN: anterior abdomen around umbilicus surgical sites without redness or erythema. small pigtail with evita drain on anterior lower right abdomen with sero sang drainage in bulb. bulb is to gravity. larger bulb on flank with purulent drainage. lower right abdomen wound dehiscence with sero sang drainage. EXTREMITIES: 2+ pulses, warm, well-perfused, no edema. NEUROLOGICAL: Normal speech, gait not observed. Laboratory Results - last 24 hr 06/27/19 06/27/19 06/27/19 05:50 05:50 05:50 WBC 16.8 H RBC 3.17 L Hgb 9.1 L Hct 27.4 L MCV 86.2 MCH 28.6 MCHC 33.2 RDW 16.3 H Plt Count 315 MPV 6.9 L Absolute Neuts (auto) 15.5 H Neutrophils % 92.5 H Neutrophils % (Manual) 92.0 H Band Neutrophils % 4.0 Lymphocytes % 4.2 L Lymphocytes % (Manual) 0.0 L Monocytes % 3.1 L Monocytes % (Manual) 3 L D Eosinophils % 0.1 D Eosinophils % (Manual) 0.0 Basophils % 0.1 Basophils % (Manual) 0.0 Myelocytes % (Man) 0 D Promyelocytes % (Man) 1 D Blast Cells % (Manual) 0 Nucleated RBC % 0 Metamyelocytes 0 D Hypochromia 0 Toxic Granulation 1+ Platelet Estimate Normal Platelet Comment Present Polychromasia 0 Poikilocytosis 1+ Anisocytosis 1+ Microcytosis 1+ Macrocytosis 0 Spherocytes 1+ Ovalocytes 1+ Nba Cells 1+ PT with INR 15.60 H INR 1.32 H PTT (Actin FS) 29.2 Sodium 138 Potassium 4.6 Chloride 108 H Carbon Dioxide 24 Anion Gap 6 L BUN 23.1 H Creatinine 1.1 Est GFR (CKD-EPI)AfAm 75.18 Est GFR (CKD-EPI)NonAf 64.86 Random Glucose 115 H Calcium 7.9 L Phosphorus 3.9 Magnesium 2.0 Total Bilirubin 0.8 AST 15 ALT 15 Alkaline Phosphatase 45 Total Protein 4.8 L Albumin 1.2 L Active Medications Generic Name Dose Route Start Last Admin Trade Name Freq PRN Reason Stop Dose Admin Acetaminophen 650 mg 06/25/19 14:13 Tylenol - PO Q6H PRN PAIN LEVEL 4 - 6 Atorvastatin Calcium 20 mg 06/25/19 22:00 06/26/19 22:33 Lipitor - PO 20 mg HS LAUREN Administration Chlorhexidine Gluconate 1 applic 06/25/19 22:00 06/26/19 22:25 Hibiclens For Decolonization - TP 1 applic HS LAUREN Administration Docusate Sodium 100 mg 06/25/19 14:13 Colace - PO BID PRN CONSTIPATION Lactated Ringer's 1,000 mls @ 125 mls/hr 06/25/19 14:13 06/27/19 14:26 Lactated Ringers Solution IV 125 mls/hr ASDIR LAUREN Administration Piperacillin Sod/Tazobactam 50 mls @ 100 mls/hr 06/25/19 15:00 06/27/19 14:25 Sod 3.375 gm/ Dextrose IVPB 100 mls/hr Q6H-IV LAUREN Administration Protocol Vancomycin HCl 1,000 mg in 250 mls @ 166.667 mls/hr 06/25/19 18:00 06/27/19 06:33 Vancomycin (Pre-Docked) IVPB 166.667 mls/hr Q12H LAUREN Administration Protocol Metronidazole 500 mg in 100 mls @ 100 mls/hr 06/26/19 10:00 06/27/19 09:55 Flagyl 500mg Premixed Ivpb - IVPB 100 mls/hr Q8H-IV LAUREN Administration Metoprolol Succinate 200 mg 06/26/19 10:00 06/27/19 09:54 Toprol Xl - PO 200 mg DAILY LAUREN Administration Mupirocin 1 applic 06/25/19 22:00 06/27/19 10:20 Bactroban Ointment (For Decolonization) - NS 06/30/19 21:59 1 applic BID LAUREN Administration Ondansetron HCl 4 mg 06/25/19 14:13 Zofran Injection IVPUSH Q6H PRN NAUSEA AND/OR VOMITING Polyethylene Glycol 17 gm 06/26/19 10:00 06/27/19 09:55 Miralax (For Daily Use) - PO Not Given DAILY LAUREN Promethazine HCl 12.5 mg 06/25/19 14:13 Phenergan Injection - IVPUSH Q6H PRN NAUSEA-FOR RESCUE AFTER 15 MIN Sacubitril/Valsartan 1 tab 06/25/19 22:00 06/27/19 09:56 Entresto 97 Mg-103 Mg Tablet PO 1 tab BID LAUREN Administration ASSESSMENT/PLAN: Problem List - Problems (1) Severe sepsis Code(s): A41.9 - SEPSIS, UNSPECIFIED ORGANISM; R65.20 - SEVERE SEPSIS WITHOUT SEPTIC SHOCK (2) Abdominal fluid collection Code(s): R18.8 - OTHER ASCITES (3) Abdominal wall abscess at site of surgical wound Code(s): T81.49XA - INFECTION FOLLOWING A PROCEDURE, OTHER SURGICAL SITE, INIT (4) Afib Code(s): I48.91 - UNSPECIFIED ATRIAL FIBRILLATION (5) HLD (hyperlipidemia) Code(s): E78.5 - HYPERLIPIDEMIA, UNSPECIFIED (6) HTN (hypertension) Code(s): I10 - ESSENTIAL (PRIMARY) HYPERTENSION (7) History of nephrectomy, right Code(s): Z90.5 - ACQUIRED ABSENCE OF KIDNEY (8) Systolic CHF Code(s): I50.20 - UNSPECIFIED SYSTOLIC (CONGESTIVE) HEART FAILURE (9) Prophylactic measure Code(s): Z29.9 - ENCOUNTER FOR PROPHYLACTIC MEASURES, UNSPECIFIED (10) DVT prophylaxis Code(s): Z29.9 - ENCOUNTER FOR PROPHYLACTIC MEASURES, UNSPECIFIED Visit type - Emergency Visit Emergency Visit: Yes ED Registration Date: 06/24/19 Care time: The patient presented to the Emergency Department on the above date and was hospitalized for further evaluation of their emergent condition. - New Patient This patient is new to me today: No - Critical Care Critical Care patient: Yes Total Critical Care Time (in minutes): 45 Critical Care Statement: The care of this patient involved high complexity decision making to prevent further life threatening deterioration of the patient 's condition and/or to evaluate & treat vital organ system(s) failure or risk of failure.
--- NOTE | 2019-06-27 15:45 | PN ---
Progress Note (short form) - Note Progress Note: PULM/CCM Pt Seen & Examined in the ICU. CA+OX3, NAD, no c/o pain, drainge is now scanty. WBC coming down: 27.9 --> 16.8. Active Medications Acetaminophen (Tylenol -) 650 mg PO Q6H PRN PRN Reason: PAIN LEVEL 4 - 6 Atorvastatin Calcium (Lipitor -) 20 mg PO HS [facility] Last Admin: 06/26/19 22:33 Dose: 20 mg Chlorhexidine Gluconate (Hibiclens For Decolonization -) 1 applic TP [facility] Last Admin: 06/26/19 22:25 Dose: 1 applic Docusate Sodium (Colace -) 100 mg PO BID PRN PRN Reason: CONSTIPATION Lactated Ringer's (Lactated Ringers Solution) 1,000 mls @ 125 mls/hr IV ASDIR [facility] Last Admin: 06/27/19 14:26 Dose: 125 mls/hr Piperacillin Sod/Tazobactam (Sod 3.375 gm/ Dextrose) 50 mls @ 100 mls/hr IVPB Q6H-IV [facility]; Protocol Last Admin: 06/27/19 14:25 Dose: 100 mls/hr Vancomycin HCl (Vancomycin (Pre-Docked)) 1,000 mg in 250 mls @ 166.667 mls/hr IVPB Q12H LAUREN; Protocol Last Admin: 06/27/19 06:33 Dose: 166.667 mls/hr Metronidazole (Flagyl 500mg Premixed Ivpb -) 500 mg in 100 mls @ 100 mls/hr IVPB Q8H-IV [facility] Last Admin: 06/27/19 09:55 Dose: 100 mls/hr Metoprolol Succinate (Toprol Xl -) 200 mg PO DAILY [facility] Last Admin: 06/27/19 09:54 Dose: 200 mg Mupirocin (Bactroban Ointment (For Decolonization) -) 1 applic NS BID [facility] Stop: 06/30/19 21:59 Last Admin: 06/27/19 10:20 Dose: 1 applic Ondansetron HCl (Zofran Injection) 4 mg IVPUSH Q6H PRN PRN Reason: NAUSEA AND/OR VOMITING Polyethylene Glycol (Miralax (For Daily Use) -) 17 gm PO DAILY [facility] Last Admin: 06/27/19 09:55 Dose: Not Given Promethazine HCl (Phenergan Injection -) 12.5 mg IVPUSH Q6H PRN PRN Reason: NAUSEA-FOR RESCUE AFTER 15 MIN Sacubitril/Valsartan (Entresto 97 Mg-103 Mg Tablet) 1 tab PO BID LAUREN Last Admin: 06/27/19 09:56 Dose: 1 tab Vital Signs Period Temp Pulse Resp BP Sys/Blanco Pulse Ox Last 24 Hr 97.4 F-98.2 F 60-90 15-21 93-120/53-77 96-96 Intake & Output 06/24/19 06/25/19 06/26/19 06/27/19 23:59 23:59 23:59 23:59 Intake Total 4175 6750 2525 Output Total 620 2150 2210 Balance 3555 4600 315 Weight 105.233 kg 122.016 kg 117.798 kg GEN: Elderly man in bed, CA+OX3, NAD. Denies pain or discomfort. HEENT: NCAT, PERRL, an-icteric, MMM PULM: Diminished at the bases, otherwise CTAB CV: nml S1 S2, irreg irreg, 4/6 syst murmur @ AV. ABD: + BS, small pigtail with evita drain on anterior lower right abdomen: serous - scanty. RP drain remains seropurulent. Wound is C/D/D/I. S/S N/T X4Q EXT: + Pulses, WWPX4, (-) edema SKIN: No obvious rashes, lesions, or ulcers CBC, BMP 06/27/19 05:50 06/27/19 05:50 Microbiology 06/26/19 14:50 Blood - Peripheral Venous Blood Culture - Preliminary NO GROWTH OBTAINED AFTER 24 HOURS, INCUBATION TO CONTINUE FOR 4 DAYS. 06/24/19 02:49 Abdomen Gram Stain - Final 06/24/19 02:49 Abdomen Wound Culture - Preliminary Streptococcus Anginosus Beta Hem Streptococcus Group F 06/24/19 03:59 Abscess Gram Stain - Final 06/24/19 03:59 Abscess Wound Culture - Preliminary Streptococcus Species Alpha Hemolytic Streptococcus 06/24/19 15:15 Abscess Gram Stain - Final 06/24/19 15:15 Abscess Body Fluid Culture - Preliminary Streptococcus Species Alpha Hemolytic Streptococcus Beta Hemolytic Strep 06/24/19 15:15 Abscess Anaerobic Culture - Final NO ANAEROBES WERE ISOLATED 06/24/19 02:00 Blood - Peripheral Venous Blood Culture - Final Staphylococcus Saccharolyticus 06/24/19 02:00 Blood - Peripheral Venous Blood Culture - Final Streptococcus Anginosus 06/25/19 22:30 Urine - Urine Clean Catch Urine Culture - Final NO GROWTH OBTAINED 06/25/19 12:37 Flank Gram Stain - Final 06/25/19 12:37 Flank Wound Culture - Preliminary Streptococcus Species Alpha Hemolytic Streptococcus Beta Hemolytic Strep 06/26/19 05:40 Blood - Peripheral Venous Blood Culture - Preliminary NO GROWTH OBTAINED AFTER 24 HOURS, INCUBATION TO CONTINUE FOR 4 DAYS. RECENT STUDIES TO NOTE: TTE 06/26: Moderate , with chunk of focal ca2+- there is a small mobile echodensity seen in some views which may be an artifact from the Ca2+. A/p Dr. Aristides Goncalves: Echo in office 11/2018 showed similar findings. KUB 2: Single view of the abdomen does not include the entire pelvis, upper quadrants or left abdomen. There is some abdominal distention, soft tissue air and a right abdominal catheter with possible external fastener. Tubing projects over the lower mid abdomen and left abdomen. A metallic foreign body is not seen. There are calcifications in the right hemipelvis. Correlation recommended. This is a limited exam. R LE DUPLEX 06/25: There is no evidence of deep venous thromboses in the right lower extremity. CTAP 06/24: Status post interval right nephrectomy in comparison to a CT exam of 03/12/2019. Interval development of a 9.5 x 0.7 x 6.4 cm complex fluid structure seen with the right renal fossa suggestive of abscess formation. Note is also made of development of a right lateral flank subcutaneous 5.4 x 2.7 cm collection which may represent an additional abscess. Anterior pelvic subcutaneous soft tissue edema is seen bilaterally possibly on the basis of cellulitis. Mild presacral soft tissue edema. The remainder of the exam demonstrates no definite interval change. 0.3 cm nonobstructing left renal calculus. 1.9 cm left adrenal nodule probably representing an adenoma. Correlate with 3 month follow-up CT. The partially imaged lower chest again demonstrates a small to moderate right pleural effusion with associated basilar compressive atelectasis. A superimposed infiltrate would be difficult to exclude on the basis of CT only. Clinical/laboratory correlation is suggested. Cardiomegaly is again visualized. CXR 06/24: Impression: Large heart. Persistent right base changes. 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
[2019-06-27] MEDS: CHLORHEXIDINE GLUCONATE 4% CLEANSER FOR DECOLONIZATION TP SCH (21:21)
[2019-06-28] MEDS: PIPERACILLIN/TAZOB 3.375 GM 3.375 GM in DEXTROSE 5%-WATER - 50 ML IVPB SCH (02:21)
[2019-06-28] MEDS ORDERED: ACETAMINOPHEN 325 MG TABLET (FP) PO PRN (03:44)
[2019-06-28] MEDS ORDERED: ONDANSETRON 4 MG/2 ML VIAL IVPUSH PRN (03:44)
[2019-06-28] MEDS ORDERED: PROMETHAZINE HCL 25 MG/1 ML VIAL IVPUSH PRN (03:44)
[2019-06-28] MEDS ORDERED: DOCUSATE SODIUM 100 MG CAPSULE (FP) PO PRN (03:44)
[2019-06-28] MEDS: LACTATED RINGERS SOLUTION 1,000 ML IV SCH ×2 (06:18→21:53)
[2019-06-28] MEDS: VANCOMYCIN 1 GRAM (PRE-DOCKED) 1,000 MG/250 ML BAG IVPB SCH ×2 (06:23→18:07)
[2019-06-28 08:57] LABS: ALBUMIN 1.3 g/dl (3.4-5.0); BILIRUBIN,TOTAL 0.8 mg/dL (0.2-1); BLOOD UREA NITROGEN 19.7 mg/dL (7-18); CALCIUM 7.8 mg/dL (8.5-10.1); CREATININE 1.1 mg/dL (0.55-1.3); MAGNESIUM 1.9 mg/dL (1.8-2.4); POTASSIUM 4.2 mmol/L (3.5-5.1); TOT PROT 5.2 g/dl (6.4-8.2)
[2019-06-28] MEDS ORDERED: PIPERACILLIN/TAZOB 3.375 GM 3.375 GM in DEXTROSE 5%-WATER - 50 ML IVPB SCH (09:00)
[2019-06-28 09:01] LABS: BASO % 0.3 % (0-2.0); EOS % 1.1 % (0-4.5); HEMATOCRIT 29.1 % (35.4-49); HEMOGLOBIN 9.5 GM/dL (11.7-16.9); LYMPH % 5.6 % (8-40); MCH 28.1 pg (25.7-33.7); MCHC 32.7 g/dl (32.0-35.9); MEAN CELL VOLUME 86.1 fl (80-96); MEAN PLT VOLUME 6.8 fl (7.5-11.1); MONO % 2.3 % (3.8-10.2); NEUT % 90.7 % (42.8-82.8); PLATELET COUNT 334 K/MM3 (134-434); RBC 3.38 M/mm3 (4.00-5.60); RDW 16.5 % (11.9-15.9); WHITE BLOOD COUNT 16.5 K/mm3 (4.0-10.0)
[2019-06-28 09:06] LABS: INR 1.31 (0.83-1.09); PROTHROMBIN TIME (PATIENT) 15.5 SEC (9.7-13.0)
[2019-06-28 09:08] LABS: ACTIVATED PTT 28.5 SECONDS (25.2-36.5)
[2019-06-28] MEDS ORDERED: PT OWN MED DRAWER 7, Y5N ONE (09:45)
[2019-06-28] MEDS ORDERED: DEXTROSE 5%-WATER - 50 ML IVPB ONE (09:46)
[2019-06-28] MEDS ORDERED: PIPERACILLIN/TAZOBACTAM 3.375 GM VIAL IVPB ONE (09:46)
[2019-06-28] MEDS: SACUBITRIL/VALSARTAN 97 MG-103 MG TABLET PO SCH ×2 (09:54→22:15)
[2019-06-28] MEDS: POLYETHYLENE GLYCOL 3350 119 GM BTL PO SCH (09:56)
[2019-06-28] MEDS ORDERED: MUPIROCIN 2% TOPICAL OINTMENT FOR DECOLONIZATION NS SCH (10:00)
--- NOTE | 2019-06-28 11:55 | PN ---
Progress Note (short form) - Note Progress Note: Attending Surgeon POD#3 No c/o; out of the ICU; tolerating clear liquids VSS AF abdo-soft and non tender; wound clean and open and w/o purulent drainage; EDE serous; flank drain minimal WBC16.8 Cultures noted IMP: doing well PLAN: OOB/continue wound care and drains and IVAB's; advance diet. Jesse Oro MD FACS
--- NOTE | 2019-06-28 14:02 | PN ---
Progress Note (short form) - Note Progress Note: alert, resting comfortably s/p operative drainage of abscess pod #3 Vital Signs Period Temp Pulse Resp BP Sys/Blanco Pulse Ox Last 24 Hr 98.1 F-98.3 F 74-86 18-21 101-123/53-71 96-96 cor-rrr lungs clear abd soft,nt +drain- retroperitoneal drain with purulence, evita drain with serous drainage ext +edema CBC, BMP 06/28/19 07:12 06/28/19 07:12 Microbiology 06/24/19 15:15 Abscess Gram Stain - Final 06/24/19 15:15 Abscess Body Fluid Culture - Preliminary Streptococcus Anginosus Beta Hem Streptococcus Group F 06/24/19 15:15 Abscess Anaerobic Culture - Final NO ANAEROBES WERE ISOLATED 06/25/19 12:37 Flank Gram Stain - Final 06/25/19 12:37 Flank Wound Culture - Preliminary Streptococcus Anginosus Beta Hemolytic Strep 06/24/19 02:49 Abdomen Gram Stain - Final 06/24/19 02:49 Abdomen Wound Culture - Preliminary Streptococcus Anginosus Beta Hem Streptococcus Group F 06/26/19 05:40 Blood - Peripheral Venous Blood Culture - Preliminary NO GROWTH OBTAINED AFTER 48 HOURS, INCUBATION TO CONTINUE FOR 3 DAYS. 06/26/19 14:50 Blood - Peripheral Venous Blood Culture - Preliminary NO GROWTH OBTAINED AFTER 24 HOURS, INCUBATION TO CONTINUE FOR 4 DAYS. 06/24/19 03:59 Abscess Gram Stain - Final 06/24/19 03:59 Abscess Wound Culture - Preliminary Streptococcus Species Alpha Hemolytic Streptococcus 06/24/19 02:00 Blood - Peripheral Venous Blood Culture - Final Staphylococcus Saccharolyticus 06/24/19 02:00 Blood - Peripheral Venous Blood Culture - Final Streptococcus Anginosus 06/25/19 22:30 Urine - Urine Clean Catch Urine Culture - Final NO GROWTH OBTAINED vanco trough 16.8 echo noted-unchanged from 12/05 a/p abscess- f/u cultures d/c zosyn continue vanco/flagyl pending final sensitivities switch to rocephin would ask IR to check tube in am as drainage has diminished bacteremia secondary to abscess-strep anginosus repeat blood cultures are negative echo noted-prior echo unchanged- less likely endocarditis- will most likely require prolonged antibiotic course history afib s/p nephrectomy for RCC prostate ca- on medical treatment poor nutritional status will be a major issue - albumin is 1.2 d/w hospitalist
--- NOTE | 2019-06-28 15:00 | PN ---
Physical Exam: SUBJECTIVE: Patient seen and examined at the bedside. in no acute distress. feels well. OBJECTIVE: poor po intake per surgery (Dr. rOo) patient does not need transfer to [facility] at this time will put transfer on hold for now discussed with primary RN anterior drain with minimal drainage, for IR to evaluate Patient is a 78 year old male with a significant past medical history of hypertension, hld, afib who is s/p elective laparoscopic R radical nephrectomy on 05/18/2019 for a right kidney mass. Patient presents to the ED on 06/23/2019 for right lower abdomen cellulitis, with foul smelling drainage of surgical site. He is now s/p incision/drainage right flank abscess and wound exploration which found multiple loculated collections involving the subcutaneous space and fascia layer. Vital Signs Period Temp Pulse Resp BP Sys/Blanco Pulse Ox Last 24 Hr 98.1 F-98.3 F 74-86 18-20 103-123/58-71 96-96 GENERAL: The patient is awake, alert, and fully oriented, in no acute distress. denies pain or discomfort. HEAD: Normal with no signs of trauma. EYES: PERRL, extraocular movements intact, sclera anicteric, conjunctiva clear. No ptosis. ENT: Ears normal, nares patent, oropharynx clear without exudates, moist mucous membranes. NECK: Trachea midline, full range of motion, supple. LUNGS: Breath sounds equal, decreased at right base HEART: Regular rate and rhythm ABDOMEN: anterior abdomen around umbilicus surgical sites without redness or erythema. small pigtail with evita drain on anterior lower right abdomen. surgical dressing c/d/i. larger bulb on flank with purulent drainage. EXTREMITIES: 2+ pulses, warm, well-perfused, no edema. NEUROLOGICAL: Normal speech, gait not observed. Laboratory Results - last 24 hr 06/28/19 06/28/19 06/28/19 07:12 07:12 07:12 WBC 16.5 H RBC 3.38 L Hgb 9.5 L Hct 29.1 L MCV 86.1 MCH 28.1 MCHC 32.7 RDW 16.5 H Plt Count 334 MPV 6.8 L Absolute Neuts (auto) 15.0 H Neutrophils % 90.7 H Lymphocytes % 5.6 L D Monocytes % 2.3 L Eosinophils % 1.1 D Basophils % 0.3 Nucleated RBC % 0 PT with INR 15.50 H INR 1.31 H PTT (Actin FS) 28.5 Sodium 139 Potassium 4.2 Chloride 108 H Carbon Dioxide 23 Anion Gap 8 BUN 19.7 H Creatinine 1.1 Est GFR (CKD-EPI)AfAm 75.18 Est GFR (CKD-EPI)NonAf 64.86 Random Glucose 102 Calcium 7.8 L Magnesium 1.9 Total Bilirubin 0.8 AST 18 ALT 16 Alkaline Phosphatase 50 Total Protein 5.2 L Albumin 1.3 L Active Medications Generic Name Dose Route Start Last Admin Trade Name Freq PRN Reason Stop Dose Admin Acetaminophen 650 mg 06/28/19 03:44 Tylenol - PO Q6H PRN PAIN LEVEL 4 - 6 Docusate Sodium 100 mg 06/28/19 03:44 Colace - PO BID PRN CONSTIPATION Metronidazole 500 mg in 100 mls @ 100 mls/hr 06/28/19 10:00 06/28/19 09:55 Flagyl 500mg Premixed Ivpb - IVPB 100 mls/hr Q8H-IV LAUREN Administration Lactated Ringer's 1,000 mls @ 125 mls/hr 06/28/19 03:44 06/28/19 06:18 Lactated Ringers Solution IV 125 mls/hr ASDIR LAUREN Administration Vancomycin HCl 1,000 mg in 250 mls @ 166.667 mls/hr 06/28/19 06:00 06/28/19 06:23 Vancomycin (Pre-Docked) IVPB 166.667 mls/hr Q12H LAUREN Administration Protocol Ceftriaxone Sodium 2 gm/ 100 mls @ 200 mls/hr 06/28/19 14:15 Dextrose IVPB DAILY LAUREN Protocol Metoprolol Succinate 200 mg 06/28/19 10:00 06/28/19 09:55 Toprol Xl - PO 200 mg DAILY LAUREN Administration Polyethylene Glycol 17 gm 06/28/19 10:00 06/28/19 09:56 Miralax (For Daily Use) - PO 17 grams DAILY LAUREN Administration Sacubitril/Valsartan 1 tab 06/28/19 10:00 06/28/19 09:54 Entresto 97 Mg-103 Mg Tablet PO 1 tab BID LAUREN Administration ASSESSMENT/PLAN: Problem List - Problems (1) Severe sepsis Assessment/Plan: s/p incision/drainage right flank abscess and wound exploration on 06/25/2019 leukocytosis with slight increase. on zosyn. abdominal/pelvis CT: interval development of a 9.5x 0.7x 6.4cm complex fluid structure seen with the right renal fossa suggestive of abscess formation. also noted is development of a right lateral flank subcutaneous 5.4 x 2.7cm collection which may represent additional abscess. Code(s): A41.9 - SEPSIS, UNSPECIFIED ORGANISM; R65.20 - SEVERE SEPSIS WITHOUT SEPTIC SHOCK (2) Abdominal fluid collection Assessment/Plan: patient with two abscess formation as noted on ct abdomen. Code(s): R18.8 - OTHER ASCITES (3) Abdominal wall abscess at site of surgical wound Assessment/Plan: see above Code(s): T81.49XA - INFECTION FOLLOWING A PROCEDURE, OTHER SURGICAL SITE, INIT (4) Afib Assessment/Plan: permanent afib rate control with toprol holding eliquis for surgical intervention restart per cardiology Code(s): I48.91 - UNSPECIFIED ATRIAL FIBRILLATION (5) HLD (hyperlipidemia) Assessment/Plan: continue home medications Code(s): E78.5 - HYPERLIPIDEMIA, UNSPECIFIED (6) HTN (hypertension) Assessment/Plan: controlled, continue cardiac medications and monitor. Code(s): I10 - ESSENTIAL (PRIMARY) HYPERTENSION (7) History of nephrectomy, right Assessment/Plan: s/p nephrectomy removal on 05/18/19, monitor intake and output. urology following Code(s): Z90.5 - ACQUIRED ABSENCE OF KIDNEY (8) Systolic CHF Assessment/Plan: on reBouncessto monitor daily intake and output will put in for daily weights Code(s): I50.20 - UNSPECIFIED SYSTOLIC (CONGESTIVE) HEART FAILURE (9) Poor appetite Assessment/Plan: patient with poor PO intake for apx 1 month post surgery. albumin @ 1.3 dietary consulted may benefit from a calorie count will add supplements for poor po intake Code(s): R63.0 - ANOREXIA (10) DVT prophylaxis Assessment/Plan: hold eliquis, start on SCDs. Code(s): Z29.9 - ENCOUNTER FOR PROPHYLACTIC MEASURES, UNSPECIFIED (11) Prophylactic measure Assessment/Plan: fen cautious with IVF secondary to systolic chf on low salt diet monitor electrolytes dvt prophy: eliquis on hold. SCDs prevention: bowel regimen protonix SCDs early ambulation incentive spirometer. Code(s): Z29.9 - ENCOUNTER FOR PROPHYLACTIC MEASURES, UNSPECIFIED Visit type - Emergency Visit Emergency Visit: Yes ED Registration Date: 06/24/19 Care time: The patient presented to the Emergency Department on the above date and was hospitalized for further evaluation of their emergent condition. - New Patient This patient is new to me today: No - Critical Care Critical Care patient: No - Discharge Referral Referred to [facility] Med [facility] No
[2019-06-28] MEDS ORDERED: DEXTROSE 5%-WATER 100 ML IVPB ONE (15:03)
[2019-06-28] MEDS: CEFTRIAXONE 2 GM in DEXTROSE 5%-WATER 100 ML IVPB SCH (15:42)
--- NOTE | 2019-06-28 17:47 | PN ---
Physical Exam: SUBJECTIVE: Patient seen and examined OBJECTIVE: Vital Signs Period Temp Pulse Resp BP Sys/Blanco Pulse Ox Last 24 Hr 98.1 F-98.6 F 74-88 18-20 100-123/47-71 96-96 GENERAL: The patient is awake, alert, and fully oriented, in no acute distress. HEAD: Normal with no signs of trauma. EYES: PERRL, extraocular movements intact, sclera anicteric, conjunctiva clear. No ptosis. ENT: Ears normal, nares patent, oropharynx clear without exudates, moist mucous membranes. NECK: Trachea midline, full range of motion, supple. LUNGS: Breath sounds equal, clear to auscultation bilaterally, no wheezes, no crackles, no accessory muscle use. HEART: Regular rate and rhythm, S1, S2 without murmur, rub or gallop. ABDOMEN: Soft, nontender, nondistended, normoactive bowel sounds, no guarding, no rebound, no hepatosplenomegaly, no masses. EXTREMITIES: 2+ pulses, warm, well-perfused, no edema. NEUROLOGICAL: Cranial nerves II through XII grossly intact. Normal speech, gait not observed. PSYCH: Normal mood, normal affect. SKIN: Warm, dry, normal turgor, no rashes or lesions noted Laboratory Results - last 24 hr 06/28/19 06/28/19 06/28/19 07:12 07:12 07:12 WBC 16.5 H RBC 3.38 L Hgb 9.5 L Hct 29.1 L MCV 86.1 MCH 28.1 MCHC 32.7 RDW 16.5 H Plt Count 334 MPV 6.8 L Absolute Neuts (auto) 15.0 H Neutrophils % 90.7 H Lymphocytes % 5.6 L D Monocytes % 2.3 L Eosinophils % 1.1 D Basophils % 0.3 Nucleated RBC % 0 PT with INR 15.50 H INR 1.31 H PTT (Actin FS) 28.5 Sodium 139 Potassium 4.2 Chloride 108 H Carbon Dioxide 23 Anion Gap 8 BUN 19.7 H Creatinine 1.1 Est GFR (CKD-EPI)AfAm 75.18 Est GFR (CKD-EPI)NonAf 64.86 Random Glucose 102 Calcium 7.8 L Magnesium 1.9 Total Bilirubin 0.8 AST 18 ALT 16 Alkaline Phosphatase 50 Total Protein 5.2 L Albumin 1.3 L Active Medications Generic Name Dose Route Start Last Admin Trade Name Freq PRN Reason Stop Dose Admin Acetaminophen 650 mg 06/28/19 03:44 Tylenol - PO Q6H PRN PAIN LEVEL 4 - 6 Docusate Sodium 100 mg 06/28/19 03:44 Colace - PO BID PRN CONSTIPATION Metronidazole 500 mg in 100 mls @ 100 mls/hr 06/28/19 10:00 06/28/19 09:55 Flagyl 500mg Premixed Ivpb - IVPB 100 mls/hr Q8H-IV LAUREN Administration Lactated Ringer's 1,000 mls @ 125 mls/hr 06/28/19 03:44 06/28/19 06:18 Lactated Ringers Solution IV 125 mls/hr ASDIR LAUREN Administration Vancomycin HCl 1,000 mg in 250 mls @ 166.667 mls/hr 06/28/19 06:00 06/28/19 06:23 Vancomycin (Pre-Docked) IVPB 166.667 mls/hr Q12H LAUREN Administration Protocol Ceftriaxone Sodium 2 gm/ 100 mls @ 200 mls/hr 06/28/19 14:15 06/28/19 15:42 Dextrose IVPB 200 mls/hr DAILY LAUREN Administration Protocol Metoprolol Succinate 200 mg 06/28/19 10:00 06/28/19 09:55 Toprol Xl - PO 200 mg DAILY LAUREN Administration Polyethylene Glycol 17 gm 06/28/19 10:00 06/28/19 09:56 Miralax (For Daily Use) - PO 17 grams DAILY LAUREN Administration Sacubitril/Valsartan 1 tab 06/28/19 10:00 06/28/19 09:54 Entresto 97 Mg-103 Mg Tablet PO 1 tab BID LAUREN Administration ASSESSMENT/PLAN: Problem List - Problems (1) Severe sepsis Code(s): A41.9 - SEPSIS, UNSPECIFIED ORGANISM; R65.20 - SEVERE SEPSIS WITHOUT SEPTIC SHOCK (2) Abdominal fluid collection Code(s): R18.8 - OTHER ASCITES (3) Abdominal wall abscess at site of surgical wound Code(s): T81.49XA - INFECTION FOLLOWING A PROCEDURE, OTHER SURGICAL SITE, INIT (4) Afib Code(s): I48.91 - UNSPECIFIED ATRIAL FIBRILLATION (5) HLD (hyperlipidemia) Code(s): E78.5 - HYPERLIPIDEMIA, UNSPECIFIED (6) HTN (hypertension) Code(s): I10 - ESSENTIAL (PRIMARY) HYPERTENSION (7) History of nephrectomy, right Code(s): Z90.5 - ACQUIRED ABSENCE OF KIDNEY (8) Systolic CHF Code(s): I50.20 - UNSPECIFIED SYSTOLIC (CONGESTIVE) HEART FAILURE (9) Prophylactic measure Code(s): Z29.9 - ENCOUNTER FOR PROPHYLACTIC MEASURES, UNSPECIFIED (10) DVT prophylaxis Code(s): Z29.9 - ENCOUNTER FOR PROPHYLACTIC MEASURES, UNSPECIFIED
[2019-06-28] MEDS ORDERED: CHLORHEXIDINE GLUCONATE 4% CLEANSER FOR DECOLONIZATION TP SCH (22:00)
[2019-06-29] MEDS: LACTATED RINGERS SOLUTION 1,000 ML IV SCH ×2 (04:26→08:55)
[2019-06-29] MEDS: VANCOMYCIN 1 GRAM (PRE-DOCKED) 1,000 MG/250 ML BAG IVPB SCH ×2 (05:33→18:36)
[2019-06-29] MEDS ORDERED: DEXTROSE 5%-WATER 100 ML IVPB ONE (09:03)
--- NOTE | 2019-06-29 09:17 | PN ---
Progress Note (short form) - Note Progress Note: alert, resting comfortably s/p operative drainage of abscess pod #4 minimal drainage from retroperitoneal drain serous drainage from EDE drain Vital Signs Period Temp Pulse Resp BP Sys/Blanco Pulse Ox Last 24 Hr 98.3 F-98.8 F 83-102 20-20 100-134/47-71 94 cor-rrr lungs decreased bs at bases abd soft, +drains intact ext no edema CBC, BMP 06/28/19 07:12 06/28/19 07:12 todays labs are pending vanco trough 16.8 echo noted-unchanged from 12/05 a/p abscess- f/u cultures for drain check continue vanco/rocephin/flagyl bacteremia secondary to abscess-strep anginosus, staph sacchoryliticus repeat blood cultures are negative echo noted-prior echo unchanged- less likely endocarditis- will most likely require prolonged antibiotic course history afib s/p nephrectomy for RCC prostate ca- on medical treatment poor nutritional status will be a major issue - albumin is 1.2-add ensure- consider d/c ames
[2019-06-29] MEDS: SACUBITRIL/VALSARTAN 97 MG-103 MG TABLET PO SCH ×2 (09:21→23:06)
[2019-06-29] MEDS: POLYETHYLENE GLYCOL 3350 119 GM BTL PO SCH (09:22)
[2019-06-29 10:08] LABS: BASO % 0.2 % (0-2.0); EOS % 0.9 % (0-4.5); HEMATOCRIT 29.5 % (35.4-49); HEMOGLOBIN 9.8 GM/dL (11.7-16.9); LYMPH % 5.3 % (8-40); MCH 28.5 pg (25.7-33.7); MCHC 33.1 g/dl (32.0-35.9); MEAN CELL VOLUME 86.1 fl (80-96); MEAN PLT VOLUME 6.7 fl (7.5-11.1); MONO % 3.6 % (3.8-10.2); PLATELET COUNT 346 K/MM3 (134-434); RBC 3.43 M/mm3 (4.00-5.60); RDW 16.4 % (11.9-15.9); WHITE BLOOD COUNT 17.2 K/mm3 (4.0-10.0)
[2019-06-29 10:18] LABS: INR 1.36 (0.83-1.09); PROTHROMBIN TIME (PATIENT) 16.1 SEC (9.7-13.0)
[2019-06-29 10:20] LABS: ACTIVATED PTT 31.5 SECONDS (25.2-36.5)
[2019-06-29 10:29] LABS: ALBUMIN 1.4 g/dl (3.4-5.0); BILIRUBIN,TOTAL 0.6 mg/dL (0.2-1); BLOOD UREA NITROGEN 15.3 mg/dL (7-18); CALCIUM 7.6 mg/dL (8.5-10.1); MAGNESIUM 1.9 mg/dL (1.8-2.4); POTASSIUM 3.8 mmol/L (3.5-5.1)
[2019-06-29] MEDS: CEFTRIAXONE 2 GM in DEXTROSE 5%-WATER 100 ML IVPB SCH (11:51)
[2019-06-29 13:18] VITALS: BMI 35.1
[2019-06-29] MEDS: LACTOBACILLUS ACIDOPHILUS 1 TABLET PO SCH (14:54)
--- NOTE | 2019-06-29 15:56 | PATH ---
Surgical Pathology Report Patient Name: JON ALFARO Med. Rec. #: [id number] /Age/Gender: 1940 (Age: 78) / M Account: [id number] Location: [address] [place] [address]/[facility] Taken: 06/25/2019 Received: 06/26/2019 Reported: 06/29/2019 Physicians: MD Anthony Moreno F.NPiaPPia Specimen(s) Received INTRAABDOMINAL TISSUE Clinical History Cellulitis of abdominal wall, abdominal fluid Final Diagnosis INTRA-ABDOMINAL TISSUE, WOUND EXPLORATION: FIBRINOPURULENT EXUDATE AND SCANT NECROTIC TISSUE. Electronically Signed Constanza Escalante M.D. Gross Description Received in formalin labeled "intra-abdominal tissue," is a 3.5 x 2.5 x 0.3 cm aggregate of mcneal-brown necrotic soft tissue. A representative phlebotomy services portion is submitted in one cassette. 06/26/201906/26/2019
--- NOTE | 2019-06-29 16:19 | PN ---
Progress Note (short form) - Note Progress Note: s: no chest pain, palps, dizziness, dyspnea Current Medications Acetaminophen (Tylenol -) 650 mg PO Q6H PRN PRN Reason: PAIN LEVEL 4 - 6 Amino Acids (Prosource No Carb Liquid Pkt) 30 ml PO BID@0800,1730 COUNT INCLUDES THE [facility] Docusate Sodium (Colace -) 100 mg PO BID PRN PRN Reason: CONSTIPATION Lactated Ringer's (Lactated Ringers Solution) 1,000 mls @ 125 mls/hr IV ASDIR COUNT INCLUDES THE [facility] Last Admin: 06/29/19 08:55 Dose: 125 mls/hr Vancomycin HCl (Vancomycin (Pre-Docked)) 1,000 mg in 250 mls @ 166.667 mls/hr IVPB Q12H COUNT INCLUDES THE [facility]; Protocol Last Admin: 06/29/19 05:33 Dose: 166.667 mls/hr Ceftriaxone Sodium 2 gm/ (Dextrose) 100 mls @ 200 mls/hr IVPB DAILY COUNT INCLUDES THE [facility]; Protocol Last Admin: 06/29/19 11:51 Dose: 200 mls/hr Metronidazole (Flagyl 500mg Premixed Ivpb -) 500 mg in 100 mls @ 100 mls/hr IVPB Q8H-IV LAUREN Last Admin: 06/29/19 09:22 Dose: 100 mls/hr Lactobacillus Acidophilus (Bacid -) 1 tab PO DAILY COUNT INCLUDES [facility] Last Admin: 06/29/19 14:54 Dose: 1 tab Metoprolol Succinate (Toprol Xl -) 200 mg PO DAILY COUNT INCLUDES [facility] Last Admin: 06/29/19 09:22 Dose: 200 mg Polyethylene Glycol (Miralax (For Daily Use) -) 17 gm PO DAILY COUNT INCLUDES THE [facility] Last Admin: 06/29/19 09:22 Dose: Not Given Sacubitril/Valsartan (Entresto 97 Mg-103 Mg Tablet) 1 tab PO BID COUNT INCLUDES THE [facility] Last Admin: 06/29/19 09:21 Dose: 1 tab Vital Signs Period Temp Pulse Resp BP Sys/Blanco Pulse Ox Last 24 Hr 98.1 F-98.8 F 83-102 20-20 110-134/57-74 94 Constitutional: Yes: No Distress Cardiovascular: Yes: Pulse Irregular Respiratory: Yes: CTA Bilaterally Edema: No soft, nt, nd + bs no jaundice, diaphoresis not agitated aox3 Assessment/Plan a/p: 78 m hx syst chf, ar/as, pafib, htn, hld here with drainage from wound sepsis, abscess, s/p R nephrectomy: - manage per urology, ID - s/p abscess drainage and wound debridement - resume eliquis when clear per surgery pafib: -cont bb for rate control -holding eliquis as above syst chf: - euvolemic - Cont bb, entresto as/ar: Pt denies symptoms. Outpt f/u. hld: -cont statin htn: -cont home meds
--- NOTE | 2019-06-29 16:30 | PN ---
Physical Exam: SUBJECTIVE: Patient seen and examined, laying in bed, in no acute distress. OBJECTIVE: right side bilateral pleural effusion. bilateral flank subcutaneous edema seen on imaging per Dr. Hair Patient is a 78 year old male with a significant past medical history of hypertension, hld, afib who is s/p elective laparoscopic R radical nephrectomy on 05/18/2019 for a right kidney mass. Patient presents to the ED on 06/23/2019 for right lower abdomen cellulitis, with foul smelling drainage of surgical site. He is now s/p incision/drainage right flank abscess and wound exploration which found multiple loculated collections involving the subcutaneous space and fascia layer. Vital Signs Period Temp Pulse Resp BP Sys/Blanco Pulse Ox Last 24 Hr 98.1 F-98.8 F 83-102 20-20 110-134/57-74 94 GENERAL: The patient is awake, alert, and fully oriented, in no acute distress. denies pain or discomfort. HEAD: Normal with no signs of trauma. EYES: PERRL, extraocular movements intact, sclera anicteric, conjunctiva clear. No ptosis. ENT: Ears normal, nares patent, oropharynx clear without exudates, moist mucous membranes. NECK: Trachea midline, full range of motion, supple. LUNGS: Breath sounds equal, decreased at right base HEART: Regular rate and rhythm ABDOMEN: anterior abdomen around umbilicus surgical sites without redness or erythema. small pigtail with evita drain on anterior lower right abdomen. surgical dressing c/d/i. larger bulb on flank with purulent drainage. EXTREMITIES: 2+ pulses, warm, well-perfused, no edema. NEUROLOGICAL: Normal speech, gait not observed. Laboratory Results - last 24 hr 06/29/19 06/29/19 06/29/19 09:20 09:20 09:20 WBC 17.2 H RBC 3.43 L Hgb 9.8 L Hct 29.5 L MCV 86.1 MCH 28.5 MCHC 33.1 RDW 16.4 H Plt Count 346 MPV 6.7 L Absolute Neuts (auto) 15.5 H Neutrophils % 90.0 H Lymphocytes % 5.3 L Monocytes % 3.6 L Eosinophils % 0.9 Basophils % 0.2 Nucleated RBC % 0 PT with INR 16.10 H INR 1.36 H PTT (Actin FS) 31.5 Sodium 137 Potassium 3.8 Chloride 106 Carbon Dioxide 23 Anion Gap 7 L BUN 15.3 Creatinine 1.0 Est GFR (CKD-EPI)AfAm 84.36 Est GFR (CKD-EPI)NonAf 72.78 Random Glucose 112 H Calcium 7.6 L Magnesium 1.9 Total Bilirubin 0.6 AST 15 ALT 12 L Alkaline Phosphatase 49 Total Protein 5.0 L Albumin 1.4 L Active Medications Generic Name Dose Route Start Last Admin Trade Name Freq PRN Reason Stop Dose Admin Acetaminophen 650 mg 06/28/19 03:44 Tylenol - PO Q6H PRN PAIN LEVEL 4 - 6 Amino Acids 30 ml 06/29/19 17:30 Prosource No Carb Liquid Pkt PO BID@0800,1730 LAUREN Docusate Sodium 100 mg 06/28/19 03:44 Colace - PO BID PRN CONSTIPATION Lactated Ringer's 1,000 mls @ 125 mls/hr 06/28/19 03:44 06/29/19 08:55 Lactated Ringers Solution IV 125 mls/hr ASDIR LAUREN Administration Vancomycin HCl 1,000 mg in 250 mls @ 166.667 mls/hr 06/28/19 06:00 06/29/19 05:33 Vancomycin (Pre-Docked) IVPB 166.667 mls/hr Q12H LAUREN Administration Protocol Ceftriaxone Sodium 2 gm/ 100 mls @ 200 mls/hr 06/28/19 14:15 06/29/19 11:51 Dextrose IVPB 200 mls/hr DAILY LAUREN Administration Protocol Metronidazole 500 mg in 100 mls @ 100 mls/hr 06/29/19 04:30 06/29/19 09:22 Flagyl 500mg Premixed Ivpb - IVPB 100 mls/hr Q8H-IV LAUREN Administration Lactobacillus Acidophilus 1 tab 06/29/19 12:30 06/29/19 14:54 Bacid - PO 1 tab DAILY LAUREN Administration Metoprolol Succinate 200 mg 06/28/19 10:00 06/29/19 09:22 Toprol Xl - PO 200 mg DAILY LAUREN Administration Polyethylene Glycol 17 gm 06/28/19 10:00 06/29/19 09:22 Miralax (For Daily Use) - PO Not Given DAILY LAUREN Sacubitril/Valsartan 1 tab 06/28/19 10:00 06/29/19 09:21 Entresto 97 Mg-103 Mg Tablet PO 1 tab BID LAUREN Administration ASSESSMENT/PLAN: Problem List - Problems (1) Severe sepsis Assessment/Plan: s/p incision/drainage right flank abscess and wound exploration on 06/25/2019 leukocytosis with slight increase. on zosyn. Seen by IR today, posterior drain patent and draining, some oozing noted on anterior drain. Code(s): A41.9 - SEPSIS, UNSPECIFIED ORGANISM; R65.20 - SEVERE SEPSIS WITHOUT SEPTIC SHOCK (2) Abdominal fluid collection Assessment/Plan: patient with two abscess formation as noted on ct abdomen. Code(s): R18.8 - OTHER ASCITES (3) Abdominal wall abscess at site of surgical wound Assessment/Plan: see above Code(s): T81.49XA - INFECTION FOLLOWING A PROCEDURE, OTHER SURGICAL SITE, INIT (4) Afib Assessment/Plan: permanent afib rate control with toprol holding eliquis for surgical intervention restart per cardiology Code(s): I48.91 - UNSPECIFIED ATRIAL FIBRILLATION (5) HLD (hyperlipidemia) Assessment/Plan: continue home medications Code(s): E78.5 - HYPERLIPIDEMIA, UNSPECIFIED (6) HTN (hypertension) Assessment/Plan: controlled, continue cardiac medications and monitor. Code(s): I10 - ESSENTIAL (PRIMARY) HYPERTENSION (7) History of nephrectomy, right Assessment/Plan: s/p nephrectomy removal on 05/18/19, monitor intake and output. urology following Code(s): Z90.5 - ACQUIRED ABSENCE OF KIDNEY (8) Systolic CHF Assessment/Plan: on entresto monitor daily intake and output will put in for daily weights Code(s): I50.20 - UNSPECIFIED SYSTOLIC (CONGESTIVE) HEART FAILURE (9) Poor appetite Assessment/Plan: patient with poor PO intake for apx 1 month post surgery. albumin @ 1.3 dietary consulted may benefit from a calorie count will add supplements for poor po intake Code(s): R63.0 - ANOREXIA (10) DVT prophylaxis Assessment/Plan: hold eliquis, start on SCDs. Code(s): Z29.9 - ENCOUNTER FOR PROPHYLACTIC MEASURES, UNSPECIFIED (11) Prophylactic measure Assessment/Plan: fen cautious with IVF secondary to systolic chf on low salt diet monitor electrolytes dvt prophy: eliquis on hold. SCDs prevention: bowel regimen protonix SCDs early ambulation incentive spirometer. Code(s): Z29.9 - ENCOUNTER FOR PROPHYLACTIC MEASURES, UNSPECIFIED Visit type - Emergency Visit Emergency Visit: Yes ED Registration Date: 06/24/19 Care time: The patient presented to the Emergency Department on the above date and was hospitalized for further evaluation of their emergent condition. - New Patient This patient is new to me today: No - Critical Care Critical Care patient: No - Discharge Referral Referred to [facility] Med P.C.: No
--- NOTE | 2019-06-29 16:34 | PN ---
Progress Note (short form) - Note Progress Note: Attending Surgeon POD#4 No c/o; tolerating diet VSS AF abdo-soft; NT; wound care in progress WBC 17.2 CT a/p shows b/l effusions; ? residual collection in post nephrectomy space ? and open wound; awaiting official read IMP: improving PLAN: Continue present tx.; await official read of CT scan for further plan; ?d/ c EDE drain tomorrow and place VAC dressing ?. Jesse Oro MD FACS
[2019-06-29] MEDS: AMINO ACIDS/PROTEIN HYDROLYS 30 ML LIQUID.PKT PO SCH (17:08)
[2019-06-29] MEDS ORDERED: PT OWN MED DRAWER 7, Y5N ONE (23:05)
[2019-06-30] MEDS: MELATONIN 5 MG TABLETS PO PRN ×2 (01:51→22:03)
[2019-06-30] MEDS: LACTATED RINGERS SOLUTION 1,000 ML IV SCH (03:07)
[2019-06-30] MEDS: VANCOMYCIN 1 GRAM (PRE-DOCKED) 1,000 MG/250 ML BAG IVPB SCH (06:34)
--- NOTE | 2019-06-30 07:54 | PN ---
Progress Note (short form) - Note Progress Note: afebrile feels better ames in place urine clear retroperitoneal drain with min output repeat CT results pending will have IR eval drain may d/c ames Problem List - Problems (1) Abdominal wall abscess at site of surgical wound Code(s): T81.49XA - INFECTION FOLLOWING A PROCEDURE, OTHER SURGICAL SITE, INIT
[2019-06-30 09:08] LABS: BASO % 0.2 % (0-2.0); EOS % 1.6 % (0-4.5); HEMATOCRIT 28.1 % (35.4-49); HEMOGLOBIN 9.3 GM/dL (11.7-16.9); LYMPH % 6.5 % (8-40); MCH 28.5 pg (25.7-33.7); MEAN CELL VOLUME 86.4 fl (80-96); MEAN PLT VOLUME 6.9 fl (7.5-11.1); MONO % 4.6 % (3.8-10.2); NEUT % 87.1 % (42.8-82.8); PLATELET COUNT 317 K/MM3 (134-434); RBC 3.25 M/mm3 (4.00-5.60); RDW 16.3 % (11.9-15.9); WHITE BLOOD COUNT 14.6 K/mm3 (4.0-10.0)
[2019-06-30 09:22] LABS: INR 1.27 (0.83-1.09)
[2019-06-30 09:25] LABS: ACTIVATED PTT 30.6 SECONDS (25.2-36.5)
[2019-06-30] MEDS ORDERED: PT OWN MED DRAWER 7, Y5N ONE ×2 (09:33→21:45)
[2019-06-30] MEDS ORDERED: DEXTROSE 5%-WATER 100 ML IVPB ONE (09:34)
[2019-06-30 09:35] LABS: ALBUMIN 1.3 g/dl (3.4-5.0); BILIRUBIN,TOTAL 0.6 mg/dL (0.2-1); BLOOD UREA NITROGEN 12.6 mg/dL (7-18); CALCIUM 7.5 mg/dL (8.5-10.1); CREATININE 0.9 mg/dL (0.55-1.3); MAGNESIUM 1.9 mg/dL (1.8-2.4); POTASSIUM 3.7 mmol/L (3.5-5.1); TOT PROT 4.8 g/dl (6.4-8.2)
[2019-06-30] MEDS: AMINO ACIDS/PROTEIN HYDROLYS 30 ML LIQUID.PKT PO SCH ×2 (10:03→17:22)
[2019-06-30] MEDS: LACTOBACILLUS ACIDOPHILUS 1 TABLET PO SCH (10:04)
[2019-06-30] MEDS: CEFTRIAXONE 2 GM in DEXTROSE 5%-WATER 100 ML IVPB SCH (10:05)
[2019-06-30] MEDS: POLYETHYLENE GLYCOL 3350 119 GM BTL PO SCH (10:10)
[2019-06-30] MEDS: SACUBITRIL/VALSARTAN 97 MG-103 MG TABLET PO SCH ×2 (10:11→23:44)
--- NOTE | 2019-06-30 13:04 | PN ---
Progress Note (short form) - Note Progress Note: GENERAL SURGERY POD #5 Alert. Sitting up in bed at 30 degrees. Resting comfortably without complaint. States he feels much better compared to when he was admitted. Tolerating PO diet. Ames remains. Denies n/v/f/c, CP, SOB, MENDEZ Last Vital Signs Temp Pulse Resp BP Pulse Ox 97.4 F L 80 18 107/55 L 96 06/30/19 05:00 06/30/19 05:00 06/30/19 05:00 06/30/19 05:00 06/29/19 21:00 OUTPUT 06/29/19 06/29/19 06/29/19 06/29/19 06:00 07:38 15:00 23:28 Rt flank (IR drain) 0 60 40 EDE (surgical drain) 100 95 100 Ames 200 600 400 WBC TREND 06/26/19 06/27/19 06/28/19 06/29/19 06/30/19 05:40 05:50 07:12 09:20 07:45 WBC 16.8 H 16.8 H 16.5 H 17.2 14.6 General: nad ABD: obese habitus. RLQ surgical wound open down to peritoneum (layer is closed) . Packing removed. Clean. No purulent drainage or foul odor. EDE serous fluid. Back: IR drain intact. On bulb suction w/ purulent drainage : ames to gravity LE: SCDs bilat Problem List - Problems (1) Abdominal wall abscess at site of surgical wound Assessment/Plan: 78 yo male admitted with surgical site infection after recent laprascopic right radical nephrectomy 05/18/2019 now with abscess in the renal fossa with extraperitoneal extension to the abdominal wall soft tissue. Now POD #5 s/p incision / drainage right flank abscess and wound exploration. 1. Wound VAC applied while on rounds. - dressing changes ordered for T-TH-Sat - Wound dimensions ~ 12 cm x 2.54 cm x 10 cm - VAC papers filled out 2. Cont care per primary medical team 3. Trend WBC 4. ABX as per ID 5. f/u Dr. Garza Above plan discussed with Dr. Oro and agrees. On behalf of Dr. Oro, thank you for the opportunity to participate in your patient's care. Code(s): T81.49XA - INFECTION FOLLOWING A PROCEDURE, OTHER SURGICAL SITE, INIT (2) Afib Code(s): I48.91 - UNSPECIFIED ATRIAL FIBRILLATION (3) HLD (hyperlipidemia) Code(s): E78.5 - HYPERLIPIDEMIA, UNSPECIFIED (4) HTN (hypertension) Code(s): I10 - ESSENTIAL (PRIMARY) HYPERTENSION (5) History of nephrectomy, right Code(s): Z90.5 - ACQUIRED ABSENCE OF KIDNEY
--- NOTE | 2019-06-30 13:48 | PN ---
Progress Note, Physician Chief Complaint: sitting in bed, flossing teeth Denies CP, SOB, palps Going for drainage exchange - Current Medication List Current Medications: Active Medications Acetaminophen (Tylenol -) 650 mg PO Q6H PRN PRN Reason: PAIN LEVEL 4 - 6 Amino Acids (Prosource No Carb Liquid Pkt) 30 ml PO BID@0800,1730 [facility] Last Admin: 06/30/19 10:03 Dose: 30 ml Docusate Sodium (Colace -) 100 mg PO BID PRN PRN Reason: CONSTIPATION Lactated Ringer's (Lactated Ringers Solution) 1,000 mls @ 125 mls/hr IV ASDIR [facility] Last Admin: 06/30/19 03:07 Dose: 125 mls/hr Vancomycin HCl (Vancomycin (Pre-Docked)) 1,000 mg in 250 mls @ 166.667 mls/hr IVPB Q12H [facility]; Protocol Last Admin: 06/30/19 06:34 Dose: 166.667 mls/hr Ceftriaxone Sodium 2 gm/ (Dextrose) 100 mls @ 200 mls/hr IVPB DAILY [facility]; Protocol Last Admin: 06/30/19 10:05 Dose: 200 mls/hr Metronidazole (Flagyl 500mg Premixed Ivpb -) 500 mg in 100 mls @ 100 mls/hr IVPB Q8H-IV [facility] Last Admin: 06/30/19 10:11 Dose: 100 mls/hr Lactobacillus Acidophilus (Bacid -) 1 tab PO DAILY [facility] Last Admin: 06/30/19 10:04 Dose: 1 tab Melatonin (Melatonin) 5 mg PO HS PRN PRN Reason: INSOMNIA Last Admin: 06/30/19 01:51 Dose: 5 mg Metoprolol Succinate (Toprol Xl -) 200 mg PO DAILY [facility] Last Admin: 06/30/19 10:03 Dose: 200 mg Polyethylene Glycol (Miralax (For Daily Use) -) 17 gm PO DAILY [facility] Last Admin: 06/30/19 10:10 Dose: 17 grams Sacubitril/Valsartan (Entresto 97 Mg-103 Mg Tablet) 1 tab PO BID [facility] Last Admin: 06/30/19 10:11 Dose: 1 tab - Objective Vital Signs: Vital Signs Temperature 97.4 F L 06/30/19 05:00 Pulse Rate 80 06/30/19 05:00 Respiratory Rate 18 06/30/19 05:00 Blood Pressure 107/55 L 06/30/19 05:00 O2 Sat by Pulse Oximetry (%) 96 06/29/19 21:00 Constitutional: Yes: No Distress Cardiovascular: Yes: Regular Rate and Rhythm Respiratory: Yes: CTA Bilaterally Gastrointestinal: Yes: Soft (drain in place), Abdomen, Obese Edema: Yes Edema: LLE: 2+, RLE: 2+ Neurological: Yes: Alert, Oriented ...Motor Strength: WNL Labs: CBC, BMP 06/30/19 07:45 06/30/19 07:45 INR, PTT INR 1.27 (0.83-1.09) H 06/30/19 07:45 Laboratory Tests 06/30/19 06/30/19 07:45 07:45 WBC 14.6 H Hgb 9.3 L Plt Count 317 Sodium 136 Potassium 3.7 Creatinine 0.9 Magnesium 1.9 Albumin 1.3 L Assessment/Plan Assessment/Plan a/p: 78 m hx syst chf, ar/as, pafib, htn, hld here with drainage from wound sepsis, abscess, s/p R nephrectomy: - manage per urology, ID - s/p abscess drainage and wound debridement - resume eliquis when clear per surgery pafib: -cont bb for rate control -holding eliquis as above syst chf: chronic - euvolemic - Cont bb, entresto as/ar: Pt denies symptoms. Outpt f/u. hld: -cont statin htn: -cont home meds LE edema: -may be due to hypoalbuminemia/ 3rd spacing. -Check LE venous duplex -DVT prophylaxis recommended
--- NOTE | 2019-06-30 16:41 | PN ---
Progress Note (short form) - Note Progress Note: alert, resting comfortably s/p operative drainage of abscess pod #5 minimal drainage from retroperitoneal drain-tube change done today serous drainage from EDE drain converted to a vac no complaints Vital Signs Period Temp Pulse Resp BP Sys/Blanco Pulse Ox Last 24 Hr 97.4 F-98.2 F 80-87 18-20 107-126/55-72 96-96 cor-rrr lungs clear abd soft,nt +vac +retroperitoneal drain with purulent drainage ext +edema bilaterally CBC, BMP 06/30/19 07:45 06/30/19 07:45 duplex no dvt Microbiology 06/26/19 14:50 Blood - Peripheral Venous Blood Culture - Preliminary NO GROWTH OBTAINED AFTER 96 HOURS, INCUBATION TO CONTINUE FOR 1 DAYS. 06/24/19 02:49 Abdomen Gram Stain - Final 06/24/19 02:49 Abdomen Wound Culture - Preliminary Streptococcus Anginosus Beta Hem Streptococcus Group F 06/25/19 12:37 Flank Gram Stain - Final 06/25/19 12:37 Flank Wound Culture - Preliminary Streptococcus Anginosus Beta Hem Streptococcus Group F 06/24/19 03:59 Abscess Gram Stain - Final 06/24/19 03:59 Abscess Wound Culture - Final Streptococcus Species 06/24/19 15:15 Abscess Gram Stain - Final 06/24/19 15:15 Abscess Body Fluid Culture - Preliminary Streptococcus Anginosus Beta Hem Streptococcus Group F 06/24/19 15:15 Abscess Anaerobic Culture - Final NO ANAEROBES WERE ISOLATED 06/26/19 05:40 Blood - Peripheral Venous Blood Culture - Preliminary NO GROWTH OBTAINED AFTER 96 HOURS, INCUBATION TO CONTINUE FOR 1 DAYS. 06/24/19 02:00 Blood - Peripheral Venous Blood Culture - Final Staphylococcus Saccharolyticus 06/24/19 02:00 Blood - Peripheral Venous Blood Culture - Final Streptococcus Anginosus 06/25/19 22:30 Urine - Urine Clean Catch Urine Culture - Final NO GROWTH OBTAINED echo noted-unchanged from 12/05 a/p abscess- f/u cultures bacteremia secondary to abscess-strep anginosus, staph sacchoryliticus repeat blood cultures are negative echo noted-prior echo unchanged- less likely endocarditis- will most likely require prolonged antibiotic course continue rocephin/flagyl d/c vancomycin history afib s/p nephrectomy for RCC prostate ca- on medical treatment poor nutritional status will be a major issue - albumin is 1.2-add ensure- ames d/sd
--- NOTE | 2019-06-30 17:32 | PN ---
Physical Exam: SUBJECTIVE: Patient seen and examined. able to ambulate with PT today. OBJECTIVE: patient for IR for flank drain to be upsized from 10fr to 12 or 14 fr today Wound VAC applied by surgery ---- Patient is a 78 year old male with a significant past medical history of hypertension, hld, afib who is s/p elective laparoscopic R radical nephrectomy on 05/18/2019 for a right kidney mass. Patient presents to the ED on 06/23/2019 for right lower abdomen cellulitis, with foul smelling drainage of surgical site. He is now s/p incision/drainage right flank abscess and wound exploration which found multiple loculated collections involving the subcutaneous space and fascia layer. Vital Signs Period Temp Pulse Resp BP Sys/Blanco Pulse Ox Last 24 Hr 97.4 F-98.2 F 80-87 18-20 107-126/55-72 96-96 GENERAL: The patient is awake, alert, and fully oriented, in no acute distress. denies pain or discomfort. HEAD: Normal with no signs of trauma. EYES: PERRL, extraocular movements intact, sclera anicteric, conjunctiva clear. No ptosis. ENT: Ears normal, nares patent, oropharynx clear without exudates, moist mucous membranes. NECK: Trachea midline, full range of motion, supple. LUNGS: Breath sounds equal, decreased at right base HEART: Regular rate and rhythm ABDOMEN: anterior abdomen around umbilicus surgical sites without redness or erythema. small pigtail with evita drain on anterior lower right abdomen. surgical dressing c/d/i. larger bulb on flank with purulent drainage. EXTREMITIES: lower ext edema +1-2, denies pain, vascular study negative for dvt. NEUROLOGICAL: Normal speech, needs RW for ambulation Laboratory Results - last 24 hr 06/29/19 06/30/19 06/30/19 17:00 07:45 07:45 WBC 14.6 H RBC 3.25 L Hgb 9.3 L Hct 28.1 L MCV 86.4 MCH 28.5 MCHC 33.0 RDW 16.3 H Plt Count 317 MPV 6.9 L Absolute Neuts (auto) 12.7 H Neutrophils % 87.1 H Lymphocytes % 6.5 L D Monocytes % 4.6 Eosinophils % 1.6 Basophils % 0.2 Nucleated RBC % 0 PT with INR 15.00 H INR 1.27 H PTT (Actin FS) 30.6 Sodium Potassium Chloride Carbon Dioxide Anion Gap BUN Creatinine Est GFR (CKD-EPI)AfAm Est GFR (CKD-EPI)NonAf Random Glucose Calcium Magnesium Total Bilirubin AST ALT Alkaline Phosphatase Total Protein Albumin Vancomycin Pre-Dose 24.1 06/30/19 07:45 WBC RBC Hgb Hct MCV MCH MCHC RDW Plt Count MPV Absolute Neuts (auto) Neutrophils % Lymphocytes % Monocytes % Eosinophils % Basophils % Nucleated RBC % PT with INR INR PTT (Actin FS) Sodium 136 Potassium 3.7 Chloride 106 Carbon Dioxide 24 Anion Gap 7 L BUN 12.6 Creatinine 0.9 Est GFR (CKD-EPI)AfAm 95.82 Est GFR (CKD-EPI)NonAf 82.67 Random Glucose 120 H Calcium 7.5 L Magnesium 1.9 Total Bilirubin 0.6 AST 13 L ALT 11 L Alkaline Phosphatase 47 Total Protein 4.8 L Albumin 1.3 L Vancomycin Pre-Dose Active Medications Generic Name Dose Route Start Last Admin Trade Name Freq PRN Reason Stop Dose Admin Acetaminophen 650 mg 06/28/19 03:44 Tylenol - PO Q6H PRN PAIN LEVEL 4 - 6 Amino Acids 30 ml 06/29/19 17:30 06/30/19 17:22 Prosource No Carb Liquid Pkt PO 30 ml BID@0800,1730 LAUREN Administration Docusate Sodium 100 mg 06/28/19 03:44 Colace - PO BID PRN CONSTIPATION Ceftriaxone Sodium 2 gm/ 100 mls @ 200 mls/hr 06/28/19 14:15 06/30/19 10:05 Dextrose IVPB 200 mls/hr DAILY LAUREN Administration Protocol Metronidazole 500 mg in 100 mls @ 100 mls/hr 06/29/19 04:30 06/30/19 17:22 Flagyl 500mg Premixed Ivpb - IVPB 100 mls/hr Q8H-IV LAUREN Administration Lactobacillus Acidophilus 1 tab 06/29/19 12:30 06/30/19 10:04 Bacid - PO 1 tab DAILY LAUREN Administration Melatonin 5 mg 06/29/19 22:00 06/30/19 01:51 Melatonin PO 5 mg HS PRN Administration INSOMNIA Metoprolol Succinate 200 mg 06/28/19 10:00 06/30/19 10:03 Toprol Xl - PO 200 mg DAILY LAUREN Administration Polyethylene Glycol 17 gm 06/28/19 10:00 06/30/19 10:10 Miralax (For Daily Use) - PO 17 grams DAILY LAUREN Administration Sacubitril/Valsartan 1 tab 06/28/19 10:00 06/30/19 10:11 Entresto 97 Mg-103 Mg Tablet PO 1 tab BID LAUREN Administration ASSESSMENT/PLAN: Problem List - Problems (1) Severe sepsis Assessment/Plan: s/p incision/drainage right flank abscess and wound exploration on 06/25/2019 WBC trending down On zosyn per ID S/P wound catheter exchange for an upsize on catheter today wound vac placed by surgery Code(s): A41.9 - SEPSIS, UNSPECIFIED ORGANISM; R65.20 - SEVERE SEPSIS WITHOUT SEPTIC SHOCK (2) Abdominal fluid collection Assessment/Plan: Code(s): R18.8 - OTHER ASCITES (3) Abdominal wall abscess at site of surgical wound Assessment/Plan: see above Code(s): T81.49XA - INFECTION FOLLOWING A PROCEDURE, OTHER SURGICAL SITE, INIT (4) Afib Assessment/Plan: permanent afib rate control with toprol holding eliquis for surgical intervention restart per surgery Code(s): I48.91 - UNSPECIFIED ATRIAL FIBRILLATION (5) HLD (hyperlipidemia) Assessment/Plan: continue home medications Code(s): E78.5 - HYPERLIPIDEMIA, UNSPECIFIED (6) HTN (hypertension) Assessment/Plan: controlled, continue cardiac medications and monitor. Code(s): I10 - ESSENTIAL (PRIMARY) HYPERTENSION (7) History of nephrectomy, right Assessment/Plan: s/p nephrectomy removal on 05/18/19, monitor intake and output. urology following Code(s): Z90.5 - ACQUIRED ABSENCE OF KIDNEY (8) Systolic CHF Assessment/Plan: on entresto monitor daily intake and output will put in for daily weights Code(s): I50.20 - UNSPECIFIED SYSTOLIC (CONGESTIVE) HEART FAILURE (9) Poor appetite Assessment/Plan: patient with poor PO intake for apx 1 month post surgery. albumin @ 1.3 dietary consulted may benefit from a calorie count will add supplements for poor po intake Code(s): R63.0 - ANOREXIA (10) DVT prophylaxis Assessment/Plan: hold eliquis, start on SCDs. Code(s): Z29.9 - ENCOUNTER FOR PROPHYLACTIC MEASURES, UNSPECIFIED (11) Prophylactic measure Assessment/Plan: fen cautious with IVF secondary to systolic chf on low salt diet monitor electrolytes dvt prophy: eliquis on hold. SCDs prevention: bowel regimen protonix SCDs early ambulation incentive spirometer. Code(s): Z29.9 - ENCOUNTER FOR PROPHYLACTIC MEASURES, UNSPECIFIED Visit type - Emergency Visit Emergency Visit: Yes ED Registration Date: 06/24/19 Care time: The patient presented to the Emergency Department on the above date and was hospitalized for further evaluation of their emergent condition. - New Patient This patient is new to me today: No - Critical Care Critical Care patient: No - Discharge Referral Referred to [facility] No
[2019-07-01] MEDS ORDERED: DEXTROSE 5%-WATER 100 ML IVPB ONE (10:19)
[2019-07-01] MEDS: AMINO ACIDS/PROTEIN HYDROLYS 30 ML LIQUID.PKT PO SCH ×2 (10:22→17:53)
[2019-07-01] MEDS: CEFTRIAXONE 2 GM in DEXTROSE 5%-WATER 100 ML IVPB SCH (10:22)
[2019-07-01] MEDS: POLYETHYLENE GLYCOL 3350 119 GM BTL PO SCH (10:22)
[2019-07-01] MEDS: LACTOBACILLUS ACIDOPHILUS 1 TABLET PO SCH (10:23)
[2019-07-01] MEDS: SACUBITRIL/VALSARTAN 97 MG-103 MG TABLET PO SCH ×2 (10:28→22:15)
--- NOTE | 2019-07-01 11:05 | PN ---
Progress Note (short form) - Note Progress Note: s:no chest pain, palps, dizziness, dyspnea Current Medications Acetaminophen (Tylenol -) 650 mg PO Q6H PRN PRN Reason: PAIN LEVEL 4 - 6 Amino Acids (Prosource No Carb Liquid Pkt) 30 ml PO BID@0800,1730 [facility] Last Admin: 07/01/19 10:22 Dose: 30 ml Docusate Sodium (Colace -) 100 mg PO BID PRN PRN Reason: CONSTIPATION Ceftriaxone Sodium 2 gm/ (Dextrose) 100 mls @ 200 mls/hr IVPB DAILY [facility]; Protocol Last Admin: 07/01/19 10:22 Dose: 200 mls/hr Metronidazole (Flagyl 500mg Premixed Ivpb -) 500 mg in 100 mls @ 100 mls/hr IVPB Q8H-IV [facility] Last Admin: 07/01/19 10:22 Dose: 100 mls/hr Lactobacillus Acidophilus (Bacid -) 1 tab PO DAILY [facility] Last Admin: 07/01/19 10:23 Dose: 1 tab Melatonin (Melatonin) 5 mg PO HS PRN PRN Reason: INSOMNIA Last Admin: 06/30/19 22:03 Dose: 5 mg Metoprolol Succinate (Toprol Xl -) 200 mg PO DAILY [facility] Last Admin: 07/01/19 10:22 Dose: 200 mg Polyethylene Glycol (Miralax (For Daily Use) -) 17 gm PO DAILY [facility] Last Admin: 07/01/19 10:22 Dose: Not Given Sacubitril/Valsartan (Entresto 97 Mg-103 Mg Tablet) 1 tab PO BID [facility] Last Admin: 07/01/19 10:28 Dose: 1 tab Vital Signs Period Temp Pulse Resp BP Sys/Blanco Pulse Ox Last 24 Hr 98.1 F-98.8 F 82-85 18-18 104-113/58-65 Constitutional: Yes: No Distress Cardiovascular: Yes: Regular Rate and Rhythm Respiratory: Yes: CTA Bilaterally Gastrointestinal: Yes: Soft (drain in place), Abdomen, Obese Edema: Yes Edema: LLE: 2+, RLE: 2+ Neurological: Yes: Alert, Oriented no jaundice, diaphoresis not agitated Assessment/Plan a/p: 78 m hx syst chf, ar/as, pafib, htn, hld here with drainage from wound sepsis, abscess, s/p R nephrectomy: - manage per urology, ID - s/p abscess drainage and wound debridement - resume eliquis when clear per surgery pafib: -cont bb for rate control -holding eliquis as above syst chf: chronic - euvolemic - Cont bb, entresto as/ar: Pt denies symptoms. Outpt f/u. hld: -cont statin htn: -cont home meds LE edema: - likely in setting of hypoalbuminemia, 3rd spacing - no DVT on venous duplex -DVT prophylaxis recommended
[2019-07-01 11:06] LABS: BASO % 0.3 % (0-2.0); EOS % 1.1 % (0-4.5); HEMATOCRIT 29.7 % (35.4-49); HEMOGLOBIN 9.7 GM/dL (11.7-16.9); MCH 28.3 pg (25.7-33.7); MCHC 32.5 g/dl (32.0-35.9); MEAN CELL VOLUME 87.2 fl (80-96); NEUT % 89.6 % (42.8-82.8); PLATELET COUNT 334 K/MM3 (134-434); RBC 3.41 M/mm3 (4.00-5.60); RDW 17.1 % (11.9-15.9); WHITE BLOOD COUNT 16.4 K/mm3 (4.0-10.0)
[2019-07-01 11:45] LABS: ALBUMIN 1.4 g/dl (3.4-5.0); BILIRUBIN,TOTAL 0.6 mg/dL (0.2-1); CALCIUM 7.9 mg/dL (8.5-10.1); MAGNESIUM 1.9 mg/dL (1.8-2.4); POTASSIUM 3.7 mmol/L (3.5-5.1); TOT PROT 5.2 g/dl (6.4-8.2)
--- NOTE | 2019-07-01 12:46 | PN ---
Progress Note (short form) - Note Progress Note: alert, resting comfortably s/p operative drainage of abscess pod #6 +increased purulent drainage from the retroperitoneal drain serous drainage from EDE drain converted to a vac no complaints Vital Signs Period Temp Pulse Resp BP Sys/Blanco Pulse Ox Last 24 Hr 98.1 F-98.8 F 82-85 18-18 104-113/58-65 cor-rrr lungs decreased bs at bases abd soft, +vac +retroperitoneal drain ext +edema CBC, BMP 07/01/19 10:13 07/01/19 10:13 Microbiology 06/26/19 05:40 Blood - Peripheral Venous Blood Culture - Final NO GROWTH AFTER 5 DAYS INCUBATION 06/26/19 14:50 Blood - Peripheral Venous Blood Culture - Preliminary NO GROWTH OBTAINED AFTER 96 HOURS, INCUBATION TO CONTINUE FOR 1 DAYS. 06/24/19 02:49 Abdomen Gram Stain - Final 06/24/19 02:49 Abdomen Wound Culture - Preliminary Streptococcus Anginosus Beta Hem Streptococcus Group F 06/25/19 12:37 Flank Gram Stain - Final 06/25/19 12:37 Flank Wound Culture - Preliminary Streptococcus Anginosus Beta Hem Streptococcus Group F 06/24/19 03:59 Abscess Gram Stain - Final 06/24/19 03:59 Abscess Wound Culture - Final Streptococcus Species 06/24/19 15:15 Abscess Gram Stain - Final 06/24/19 15:15 Abscess Body Fluid Culture - Preliminary Streptococcus Anginosus Beta Hem Streptococcus Group F 06/24/19 15:15 Abscess Anaerobic Culture - Final NO ANAEROBES WERE ISOLATED 06/24/19 02:00 Blood - Peripheral Venous Blood Culture - Final Staphylococcus Saccharolyticus 06/24/19 02:00 Blood - Peripheral Venous Blood Culture - Final Streptococcus Anginosus 06/25/19 22:30 Urine - Urine Clean Catch Urine Culture - Final NO GROWTH OBTAINED echo noted-unchanged from 12/05 a/p leukocytosis- if it persists will need to re-evaluate Right pleural effusion- may need to be tapped abscess- strep anginosus/group f strep bacteremia secondary to abscess-strep anginosus, staph sacchoryliticus repeat blood cultures are negative echo noted-prior echo unchanged- less likely endocarditis- will most likely require prolonged antibiotic course continue rocephin/flagyl history afib s/p nephrectomy for RCC prostate ca- on medical treatment poor nutritional status will be a major issue - albumin is 1.2-add ensure-
--- NOTE | 2019-07-01 17:09 | PN ---
Physical Exam: SUBJECTIVE: Patient seen and examined at the bedside. sitting up in a chair, feels well, denies pain. patient only put out 500cc of urine today, but denies any suprapubic pain. RN to bladder scan. denies pain or discomfort. OBJECTIVE: has purulent drainage from the retroperitoneal drain. wound vac placed on anterior abdomen incision with purulent sero. sang drainage. ------- Patient is a 78 year old male with a significant past medical history of hypertension, hld, afib who is s/p elective laparoscopic R radical nephrectomy on 05/18/2019 for a right kidney mass. Patient presents to the ED on 06/23/2019 for right lower abdomen cellulitis, with foul smelling drainage of surgical site. He is now s/p incision/drainage right flank abscess and wound exploration which found multiple loculated collections involving the subcutaneous space and fascia layer. Vital Signs Period Temp Pulse Resp BP Sys/Blanco Pulse Ox Last 24 Hr 97.8 F-98.8 F 80-86 18-20 104-120/52-65 96 GENERAL: The patient is awake, alert, and fully oriented, in no acute distress. denies pain or discomfort. HEAD: Normal with no signs of trauma. EYES: PERRL, extraocular movements intact, sclera anicteric, conjunctiva clear. No ptosis. ENT: Ears normal, nares patent, oropharynx clear without exudates, moist mucous membranes. NECK: Trachea midline, full range of motion, supple. LUNGS: Breath sounds equal, decreased at right base HEART: Regular rate and rhythm ABDOMEN: anterior abdomen wound vac. larger bulb on flank with purulent drainage, drainage cath replaced on 06/30/2019. EXTREMITIES: lower ext edema +1-2, denies pain, vascular study negative for dvt. NEUROLOGICAL: Normal speech, needs RW for ambulation Laboratory Results - last 24 hr 07/01/19 07/01/19 10:13 10:13 WBC 16.4 H RBC 3.41 L Hgb 9.7 L Hct 29.7 L MCV 87.2 MCH 28.3 MCHC 32.5 RDW 17.1 H Plt Count 334 MPV 7.0 L Absolute Neuts (auto) 14.7 H Neutrophils % 89.6 H Lymphocytes % 5.0 L D Monocytes % 4.0 Eosinophils % 1.1 Basophils % 0.3 Nucleated RBC % 0 Sodium 140 Potassium 3.7 Chloride 108 H Carbon Dioxide 24 Anion Gap 8 BUN 19.0 H Creatinine 1.0 Est GFR (CKD-EPI)AfAm 84.36 Est GFR (CKD-EPI)NonAf 72.78 Random Glucose 179 H Calcium 7.9 L Magnesium 1.9 Total Bilirubin 0.6 AST 12 L ALT 10 L Alkaline Phosphatase 61 Total Protein 5.2 L Albumin 1.4 L Active Medications Generic Name Dose Route Start Last Admin Trade Name Freq PRN Reason Stop Dose Admin Acetaminophen 650 mg 06/28/19 03:44 Tylenol - PO Q6H PRN PAIN LEVEL 4 - 6 Amino Acids 30 ml 06/29/19 17:30 07/01/19 10:22 Prosource No Carb Liquid Pkt PO 30 ml BID@0800,1730 LAUREN Administration Docusate Sodium 100 mg 06/28/19 03:44 Colace - PO BID PRN CONSTIPATION Ceftriaxone Sodium 2 gm/ 100 mls @ 200 mls/hr 06/28/19 14:15 07/01/19 10:22 Dextrose IVPB 200 mls/hr DAILY LAUREN Administration Protocol Metronidazole 500 mg in 100 mls @ 100 mls/hr 06/29/19 04:30 07/01/19 10:22 Flagyl 500mg Premixed Ivpb - IVPB 100 mls/hr Q8H-IV LAUREN Administration Lactobacillus Acidophilus 1 tab 06/29/19 12:30 07/01/19 10:23 Bacid - PO 1 tab DAILY LAUREN Administration Melatonin 5 mg 06/29/19 22:00 06/30/19 22:03 Melatonin PO 5 mg HS PRN Administration INSOMNIA Metoprolol Succinate 200 mg 06/28/19 10:00 07/01/19 10:22 Toprol Xl - PO 200 mg DAILY LAUREN Administration Polyethylene Glycol 17 gm 06/28/19 10:00 07/01/19 10:22 Miralax (For Daily Use) - PO Not Given DAILY LAUREN Sacubitril/Valsartan 1 tab 06/28/19 10:00 07/01/19 10:28 Entresto 97 Mg-103 Mg Tablet PO 1 tab BID LAUREN Administration ASSESSMENT/PLAN: Problem List - Problems (1) Severe sepsis Assessment/Plan: s/p incision/drainage right flank abscess and wound exploration on 06/25/2019 WBC slightly increased from yesterday. no fevers. On zosyn per ID S/P wound catheter exchange for an upsize on catheter on 06/30. wound vac placed by surgery on 06/30 Code(s): A41.9 - SEPSIS, UNSPECIFIED ORGANISM; R65.20 - SEVERE SEPSIS WITHOUT SEPTIC SHOCK (2) Abdominal fluid collection Assessment/Plan: monitor drain output, wound vac output Code(s): R18.8 - OTHER ASCITES (3) Abdominal wall abscess at site of surgical wound Assessment/Plan: see above Code(s): T81.49XA - INFECTION FOLLOWING A PROCEDURE, OTHER SURGICAL SITE, INIT (4) Afib Assessment/Plan: permanent afib rate control with toprol holding eliquis Code(s): I48.91 - UNSPECIFIED ATRIAL FIBRILLATION (5) HLD (hyperlipidemia) Assessment/Plan: continue home medications Code(s): E78.5 - HYPERLIPIDEMIA, UNSPECIFIED (6) HTN (hypertension) Assessment/Plan: controlled, continue cardiac medications and monitor. Code(s): I10 - ESSENTIAL (PRIMARY) HYPERTENSION (7) History of nephrectomy, right Assessment/Plan: s/p nephrectomy removal on 05/18/19. monitor output of wound vac. Code(s): Z90.5 - ACQUIRED ABSENCE OF KIDNEY (8) Systolic CHF Assessment/Plan: on entresto monitor daily intake and output will put in for daily weights Code(s): I50.20 - UNSPECIFIED SYSTOLIC (CONGESTIVE) HEART FAILURE (9) Poor appetite Assessment/Plan: patient with poor PO intake for apx 1 month post surgery. albumin @ 1.4 dietary consulted may benefit from a calorie count will add supplements for poor po intake Code(s): R63.0 - ANOREXIA (10) DVT prophylaxis Assessment/Plan: hold eliquis until cleared by surgery heparin tid ordered Code(s): Z29.9 - ENCOUNTER FOR PROPHYLACTIC MEASURES, UNSPECIFIED (11) Prophylactic measure Assessment/Plan: fen cautious with IVF secondary to systolic chf on low salt diet monitor electrolytes dvt prophy: eliquis on hold. SCDs prevention: bowel regimen protonix SCDs early ambulation incentive spirometer. Code(s): Z29.9 - ENCOUNTER FOR PROPHYLACTIC MEASURES, UNSPECIFIED Visit type - Emergency Visit Emergency Visit: Yes ED Registration Date: 06/24/19 Care time: The patient presented to the Emergency Department on the above date and was hospitalized for further evaluation of their emergent condition. - New Patient This patient is new to me today: No - Critical Care Critical Care patient: No - Discharge Referral Referred to [facility] No
[2019-07-01] MEDS: HEPARIN NA (PORCINE) 5,000 UNITS/ML 1ML VIAL SQ SCH (22:15)
[2019-07-02] MEDS: HEPARIN NA (PORCINE) 5,000 UNITS/ML 1ML VIAL SQ SCH (07:04)
[2019-07-02 08:45] LABS: BASO % 0.4 % (0-2.0); HEMATOCRIT 28.6 % (35.4-49); HEMOGLOBIN 9.3 GM/dL (11.7-16.9); LYMPH % 6.5 % (8-40); MCH 28.3 pg (25.7-33.7); MCHC 32.5 g/dl (32.0-35.9); MEAN CELL VOLUME 87.1 fl (80-96); MEAN PLT VOLUME 6.9 fl (7.5-11.1); MONO % 5.1 % (3.8-10.2); PLATELET COUNT 299 K/MM3 (134-434); RBC 3.29 M/mm3 (4.00-5.60); RDW 17.3 % (11.9-15.9); WHITE BLOOD COUNT 15.1 K/mm3 (4.0-10.0)
[2019-07-02 09:00] LABS: ALBUMIN 1.5 g/dl (3.4-5.0); BILIRUBIN,TOTAL 0.4 mg/dL (0.2-1); BLOOD UREA NITROGEN 19.4 mg/dL (7-18); CALCIUM 7.6 mg/dL (8.5-10.1); CREATININE 0.9 mg/dL (0.55-1.3); POTASSIUM 3.8 mmol/L (3.5-5.1); TOT PROT 5.3 g/dl (6.4-8.2)
[2019-07-02] MEDS ORDERED: DEXTROSE 5%-WATER 100 ML IVPB ONE (09:23)
[2019-07-02] MEDS ORDERED: PT OWN MED DRAWER 7, Y5N ONE ×2 (09:23→21:27)
[2019-07-02] MEDS: AMINO ACIDS/PROTEIN HYDROLYS 30 ML LIQUID.PKT PO SCH ×2 (09:35→17:09)
[2019-07-02] MEDS: LACTOBACILLUS ACIDOPHILUS 1 TABLET PO SCH (09:36)
[2019-07-02] MEDS: SACUBITRIL/VALSARTAN 97 MG-103 MG TABLET PO SCH ×2 (09:36→21:34)
[2019-07-02] MEDS: POLYETHYLENE GLYCOL 3350 119 GM BTL PO SCH (09:42)
--- NOTE | 2019-07-02 10:35 | PN ---
Progress Note (short form) - Note Progress Note: s:no chest pain, palps, dizziness, dyspnea Current Medications Generic Name Dose Route Start Last Admin Trade Name Freq PRN Reason Stop Dose Admin Acetaminophen 650 mg 06/28/19 03:44 Tylenol - PO Q6H PRN PAIN LEVEL 4 - 6 Amino Acids 30 ml 06/29/19 17:30 07/02/19 09:35 Prosource No Carb Liquid Pkt PO 30 ml BID@0800,1730 LAUREN Administration Docusate Sodium 100 mg 06/28/19 03:44 Colace - PO BID PRN CONSTIPATION Heparin Sodium (Porcine) 5,000 unit 07/01/19 22:00 07/02/19 07:04 Heparin - SQ 5,000 unit TID LAUREN Administration Ceftriaxone Sodium 2 gm/ 100 mls @ 200 mls/hr 06/28/19 14:15 07/01/19 10:22 Dextrose IVPB 200 mls/hr DAILY LAUREN Administration Protocol Metronidazole 500 mg in 100 mls @ 100 mls/hr 06/29/19 04:30 07/02/19 09:36 Flagyl 500mg Premixed Ivpb - IVPB 100 mls/hr Q8H-IV LAUREN Administration Lactobacillus Acidophilus 1 tab 06/29/19 12:30 07/02/19 09:36 Bacid - PO 1 tab DAILY LAUREN Administration Melatonin 5 mg 06/29/19 22:00 06/30/19 22:03 Melatonin PO 5 mg HS PRN Administration INSOMNIA Metoprolol Succinate 200 mg 06/28/19 10:00 07/02/19 09:36 Toprol Xl - PO 200 mg DAILY LAUREN Administration Polyethylene Glycol 17 gm 06/28/19 10:00 07/02/19 09:42 Miralax (For Daily Use) - PO Not Given DAILY LAUREN Sacubitril/Valsartan 1 tab 06/28/19 10:00 07/02/19 09:36 Entresto 97 Mg-103 Mg Tablet PO 1 tab BID LAUREN Administration Vital Signs Period Temp Pulse Resp BP Sys/Blanco Pulse Ox Last 24 Hr 97.8 F-98.9 F 81-86 18-20 114-122/53-69 96 Constitutional: Yes: No Distress Cardiovascular: Yes: Regular Rate and Rhythm Respiratory: Yes: CTA Bilaterally Gastrointestinal: Yes: Soft (drain in place), Abdomen, Obese Edema: Yes Edema: LLE: 1+, RLE: 1+ Neurological: Yes: Alert, Oriented no jaundice, diaphoresis not agitated CBC, BMP 07/02/19 07:40 07/02/19 07:40 Assessment/Plan a/p: 78 m hx syst chf, ar/as, pafib, htn, hld here with drainage from wound sepsis, abscess, s/p R nephrectomy: - manage per urology, ID - s/p abscess drainage and wound debridement - resume eliquis when clear per surgery pafib: -cont bb for rate control -holding eliquis as above syst chf: chronic - has significant le edema, will start lasix 40 qd for now - Cont bb, entresto as/ar: Pt denies symptoms. Outpt f/u. hld: -cont statin htn: -cont home meds
[2019-07-02] MEDS: CEFTRIAXONE 2 GM in DEXTROSE 5%-WATER 100 ML IVPB SCH (10:57)
--- NOTE | 2019-07-02 12:29 | PN ---
Physical Exam: SUBJECTIVE: Patient seen and examined at the bedside. laying in bed, in no acute distress. denies pain or discomfort. urinating freely, not constipated. tells me he feels much improved. OBJECTIVE: restart eliquis 5 bid (cleared with surgery) wound vac with sero/sang/purulent drainage ----- Patient is a 78 year old male with a significant past medical history of hypertension, hld, afib who is s/p elective laparoscopic R radical nephrectomy on 05/18/2019 for a right kidney mass. Patient presents to the ED on 06/23/2019 for right lower abdomen cellulitis, with foul smelling drainage of surgical site. He is now s/p incision/drainage right flank abscess and wound exploration which found multiple loculated collections involving the subcutaneous space and fascia layer. He is s/p wound vac placement on 2019 to right lower abdominal surgical site. flank rosalinda drain with small amt of purulent drainage (drainage cath upsized on 06/30/2019). He is on ceftriaxone and Flagyl. Vital Signs Period Temp Pulse Resp BP Sys/Blanco Pulse Ox Last 24 Hr 97.8 F-98.9 F 81-86 18-20 114-122/53-69 96 GENERAL: The patient is awake, alert, and fully oriented, in no acute distress. denies pain or discomfort. HEAD: Normal with no signs of trauma. EYES: PERRL, extraocular movements intact, sclera anicteric, conjunctiva clear. No ptosis. ENT: Ears normal, nares patent, oropharynx clear without exudates, moist mucous membranes. NECK: Trachea midline, full range of motion, supple. LUNGS: Breath sounds equal, decreased at right base HEART: Regular rate and rhythm ABDOMEN: anterior abdomen wound vac. larger bulb on flank with purulent drainage, drainage cath replaced on 06/30/2019. EXTREMITIES: lower ext edema +1-2, denies pain, vascular study negative for dvt. NEUROLOGICAL: Normal speech, needs RW for ambulation. participating in PT and moving all extremities. Laboratory Results - last 24 hr 07/02/19 07/02/19 07/02/19 07:40 07:40 07:40 WBC 15.1 H RBC 3.29 L Hgb 9.3 L Hct 28.6 L MCV 87.1 MCH 28.3 MCHC 32.5 RDW 17.3 H Plt Count 299 MPV 6.9 L Absolute Neuts (auto) 13.0 H Neutrophils % 86.0 H Lymphocytes % 6.5 L D Monocytes % 5.1 Eosinophils % 2.0 D Basophils % 0.4 Nucleated RBC % 0 ESR Sodium 140 Potassium 3.8 Chloride 109 H Carbon Dioxide 25 Anion Gap 7 L BUN 19.4 H Creatinine 0.9 Est GFR (CKD-EPI)AfAm 95.82 Est GFR (CKD-EPI)NonAf 82.67 Random Glucose 110 H Calcium 7.6 L Magnesium 2.0 Total Bilirubin 0.4 AST 10 L ALT 10 L Alkaline Phosphatase 48 C-Reactive Protein 2.8 H Total Protein 5.3 L Albumin 1.5 L 07/02/19 08:15 WBC RBC Hgb Hct MCV MCH MCHC RDW Plt Count MPV Absolute Neuts (auto) Neutrophils % Lymphocytes % Monocytes % Eosinophils % Basophils % Nucleated RBC % ESR 57 H Sodium Potassium Chloride Carbon Dioxide Anion Gap BUN Creatinine Est GFR (CKD-EPI)AfAm Est GFR (CKD-EPI)NonAf Random Glucose Calcium Magnesium Total Bilirubin AST ALT Alkaline Phosphatase C-Reactive Protein Total Protein Albumin Active Medications Generic Name Dose Route Start Last Admin Trade Name Freq PRN Reason Stop Dose Admin Acetaminophen 650 mg 06/28/19 03:44 Tylenol - PO Q6H PRN PAIN LEVEL 4 - 6 Amino Acids 30 ml 06/29/19 17:30 07/02/19 09:35 Prosource No Carb Liquid Pkt PO 30 ml BID@0800,1730 LAUREN Administration Docusate Sodium 100 mg 06/28/19 03:44 Colace - PO BID PRN CONSTIPATION Furosemide 40 mg 07/02/19 10:45 Lasix - PO DAILY LAUREN Ceftriaxone Sodium 2 gm/ 100 mls @ 200 mls/hr 06/28/19 14:15 07/02/19 10:57 Dextrose IVPB 200 mls/hr DAILY LAUREN Administration Protocol Metronidazole 500 mg in 100 mls @ 100 mls/hr 06/29/19 04:30 07/02/19 09:36 Flagyl 500mg Premixed Ivpb - IVPB 100 mls/hr Q8H-IV LAUREN Administration Lactobacillus Acidophilus 1 tab 06/29/19 12:30 07/02/19 09:36 Bacid - PO 1 tab DAILY LAUREN Administration Melatonin 5 mg 06/29/19 22:00 06/30/19 22:03 Melatonin PO 5 mg HS PRN Administration INSOMNIA Metoprolol Succinate 200 mg 06/28/19 10:00 07/02/19 09:36 Toprol Xl - PO 200 mg DAILY LAUREN Administration Polyethylene Glycol 17 gm 06/28/19 10:00 07/02/19 09:42 Miralax (For Daily Use) - PO Not Given DAILY LAUREN Sacubitril/Valsartan 1 tab 06/28/19 10:00 07/02/19 09:36 Entresto 97 Mg-103 Mg Tablet PO 1 tab BID LAUREN Administration ASSESSMENT/PLAN: Problem List - Problems (1) Bacteremia Assessment/Plan: bacteremia secondary to abdominal wound/abscess formation repeat blood cultures are negative echo reviewed per ID, patient will require prolonged antibiotics on Rocephin and Flagyl Code(s): R78.81 - BACTEREMIA (2) Severe sepsis Assessment/Plan: s/p incision/drainage right flank abscess and wound exploration on 06/25/2019 WBC slightly increased S/P wound catheter exchange for an upsize on catheter on 06/30. wound vac placed by surgery on 06/30 Code(s): A41.9 - SEPSIS, UNSPECIFIED ORGANISM; R65.20 - SEVERE SEPSIS WITHOUT SEPTIC SHOCK (3) Abdominal fluid collection Assessment/Plan: monitor drain output, wound vac output. wound vac to be changed per surgery recommendations. Code(s): R18.8 - OTHER ASCITES (4) Abdominal wall abscess at site of surgical wound Assessment/Plan: see above Code(s): T81.49XA - INFECTION FOLLOWING A PROCEDURE, OTHER SURGICAL SITE, INIT (5) Afib Assessment/Plan: permanent afib rate control with toprol, restarted eliquis 5 bid as per surgery clearance. Code(s): I48.91 - UNSPECIFIED ATRIAL FIBRILLATION (6) HLD (hyperlipidemia) Assessment/Plan: continue home medications Code(s): E78.5 - HYPERLIPIDEMIA, UNSPECIFIED (7) HTN (hypertension) Assessment/Plan: controlled, continue cardiac medications and monitor. Code(s): I10 - ESSENTIAL (PRIMARY) HYPERTENSION (8) History of nephrectomy, right Assessment/Plan: s/p nephrectomy removal on 05/18/19. monitor output of wound vac. Code(s): Z90.5 - ACQUIRED ABSENCE OF KIDNEY (9) Systolic CHF Assessment/Plan: on entresto monitor daily intake and output daily weights Code(s): I50.20 - UNSPECIFIED SYSTOLIC (CONGESTIVE) HEART FAILURE (10) Poor appetite Assessment/Plan: patient with poor PO intake for apx 1 month post surgery. albumin @ 1.3-1.4 dietary consulted and following, on ensure per dietary, no need for a calorie count at this time. will add supplements for poor po intake, on ensure with meals Code(s): R63.0 - ANOREXIA (11) DVT prophylaxis Assessment/Plan: eliquis bid ambulation Code(s): Z29.9 - ENCOUNTER FOR PROPHYLACTIC MEASURES, UNSPECIFIED (12) Prophylactic measure Assessment/Plan: fen cautious with IVF secondary to systolic chf on low salt diet monitor electrolytes dvt prophy: eliquis prevention: bowel regimen protonix SCDs early ambulation incentive spirometer. Code(s): Z29.9 - ENCOUNTER FOR PROPHYLACTIC MEASURES, UNSPECIFIED Visit type - Emergency Visit Emergency Visit: Yes ED Registration Date: 06/24/19 Care time: The patient presented to the Emergency Department on the above date and was hospitalized for further evaluation of their emergent condition. - New Patient This patient is new to me today: No - Critical Care Critical Care patient: No - Discharge Referral Referred to [facility] Med P.C.: No
--- NOTE | 2019-07-02 13:42 | PN ---
Progress Note (short form) - Note Progress Note: Attending Surgeon POD#7 No c/o VSS AF wound-VAC removed and wound irrigated w/NS; wound granulating and healing well; has decreased in depth and width. Flank drain remains w/purulent d/c; o/w negative. WBC 15.1 IMP: improving PLAN: Continue antibiotics and drain and VAC; continue IVABS.; will f/u. Jesse Oro MD FACS
[2019-07-02] MEDS: FUROSEMIDE 40 MG TABLET (FP) PO SCH (14:27)
--- NOTE | 2019-07-02 16:17 | CONSULT ---
Admitting History and Physical - Past Medical History Cardiovascular: Yes: AFIB, HTN, Hyperlipdemia - Smoking History Smoking history: Former smoker Have you smoked in the past 12 months: No If you are a former smoker, when did you quit?: 12 YEARS AGO - Alcohol/Substance Use Hx Alcohol Use: Yes (OCCASIONAL) History - Admission Reason For Visit: CELLULITIS OF ABDOMINAL WALL, ABDOMINAL FLUID - Hearing Hearing: Normal Speech Evaluation - Communication Primary Language: BULGARIAN Communication: Yes: Within Normal Limits Oral Expression Ability: Yes: No Impairment - Speech Production Apraxia: No Able to Make Needs Known: Yes: WNL Intelligibility: Yes: WNL - Speech Characteristics Voice Loudness: Normal Voice Pitch: Yes: Normal Voice Phonatory-based Quality: Yes: Normal Speech Pattern: Normal Nasal Resonance: Normal Articulation: Yes: Precise Rate of Speech: Intact Voice Comment: Vocal quality is functional for the environment with speech parameters WNL. - Language/Auditory Comprehension Follows: Yes: 1 Stage Simple Commands (wfl), 2 Stage Simple Commands (wfl) Observation: Able to respond to yes/no queries: Yes, Yes/No Confusion: No, Comprehends Conversational Speech: Yes, Benefits from Slow Speech: No, Benefits from Repetiton: No, Benefits from Increased Volume of Speech: No - Language/Verbal Expression Able to Respond to Simple Queries: Yes: WNL Able to Communicate Wants and Needs: Yes: WNL Functional Communication Status: Yes: WNL Aware of Errors: Yes Attempts to Correct Errors: Yes Use of Gestures: No Written Expression: not examined Oral Expression: WFL Reading Comprehension: not examined Calculations: not examined Attention: Yes: Intact - Memory/Perception intermediate Memory: Yes: WNL Short Term Memory: Yes: WNL - Swallow Evaluation/Bedside Assessment Current Nutritional Intake: Dysphagia Pureed, Pleasant Plain Textured Liquids Oral Secretions: Yes: WFL Tracheostomy Present: No Patient on Ventilator: No Dentition: Yes: Edentulous, Missing Teeth Facial Symmetry at Rest: Symmetrical Facial Symmetry on Retraction: Symmetrical Facial Movement: Controlled Sensation: Normal Facial Comment: WF for speech and swallowing purposes Jaw Position: Closed at Rest Against Resistance Opening: Normal Against Resistance Closing: Normal Pucker Lips: Normal Smile: Normal Lips, Comment: WF for speech and swallowing purposes Lingual Movement: Normal Lingual Speed of Movement: Normal Lingual Movement Strgth Against Opposition: Normal Lingual Movement Characteristics: Normal Lingual Comment: WFL for speech and swallowing purposes Soft Palate Description: Normal Color Hard Palate Description: Normal Color Gag Reflex: Strong Bite Reflex: Present Velopharyngeal Movement: Normal Laryngeal Elevation: WFL Laryngeal Movement: Able to Palpate Needs Assistance: Yes Rate of Intake: WFL Bolus Size: WFL Labial Seal: WFL Chewing: WFL Oral Prep Time: WFL A-P Transit: WFL Timing of Swallow: WFL Coughing/Throat Clear: No Change in Voice: No Other Findings/Remarks: 78 yo male seen at bedside for swallow eval to r/o dysphagia. Family member present for this session. Pt apparently coughed during lunch today (dry chicken ). Pt is verbal A&Ox3 cooperative. MHX includes A-Fib HLD,HTN, CHF. Admitted for Becteremia, s/p operative drainage, poor appetite. Dental status is WFL. current diet: pureed with nectar thicken liquids. Pt given PO trials of pureed, mechanical soft solids, regular cut to bite sized pieces without assistance revealed, adequate bolus formation and A P transport with a timely pharyngeal swallow (1-2 second average). No change in voicing or respiration after the swallow. Thin liquids trials via cup and straw were Unremarkable for dysphagia and / or aspiration at this time. Recommendations - Speech Evaluation, Impression/Plan Impression: The oral and pharyngeal swallow is adequate for po intake of purees soft and regular moisten solids and thin liquids. Labial containment, mastication, bolus transport, and initiation of swallow were WNL. No coughing or changes in voicing to suggest penetration / aspiration at bedside at this time. Speech and language are WFL Group Home Goals: Tolerate the least restrictive solid and liquid consistencies without s/s of penetration / aspiration. Short Term Goals: Tolerate soft regular solids and thin liquid consistencies without s/s of penetration / aspiration. Recommended Frequency for Therapy: Follow Up PRN - Disposition Discharge to: To be Determined - Dysphagia Impressions/Plan Swallowing Skills: Impaired Dysphagia Impressions: Minimal Impairment, Risk of Aspiration *Silent aspiration: cannot be R/O at bedside Dysphagia Treatment Plan: Small Bites, Safe Rate, 1/2 tsp. at a time, Elevate HOB during feed Dysphagia Evaluation Summary: Trial dysphagia whole with thin liquids as tolerated with standard aspiration precautions. Provide oral care after meals. Crush meds in pureed. Results given verbally to charger and to PCP via chart. [facility]ER to follow up for diet tolerance. - Recommendations Diet Consistency: Dysphagia Whole, 1 - 2 Soft Items Medication Administration: Crushed with applesauce Liquids: Thin Liquids
[2019-07-02] MEDS: APIXABAN 5 MG TABLET PO SCH (21:35)
[2019-07-03] MEDS: MELATONIN 5 MG TABLETS PO PRN (02:52)
[2019-07-03] MEDS ORDERED: PT OWN MED DRAWER 7, Y5N ONE ×2 (08:56→21:08)
[2019-07-03] MEDS ORDERED: DEXTROSE 5%-WATER 100 ML IVPB ONE (08:57)
[2019-07-03] MEDS: AMINO ACIDS/PROTEIN HYDROLYS 30 ML LIQUID.PKT PO SCH ×2 (08:59→17:01)
[2019-07-03] MEDS: FUROSEMIDE 40 MG TABLET (FP) PO SCH (09:00)
[2019-07-03] MEDS: APIXABAN 5 MG TABLET PO SCH ×2 (09:00→21:16)
[2019-07-03] MEDS: LACTOBACILLUS ACIDOPHILUS 1 TABLET PO SCH (09:00)
[2019-07-03] MEDS: SACUBITRIL/VALSARTAN 97 MG-103 MG TABLET PO SCH ×2 (09:01→21:16)
[2019-07-03 09:10] LABS: BASO % 0.4 % (0-2.0); EOS % 1.7 % (0-4.5); HEMATOCRIT 29.5 % (35.4-49); HEMOGLOBIN 9.6 GM/dL (11.7-16.9); LYMPH % 4.2 % (8-40); MCH 28.5 pg (25.7-33.7); MCHC 32.6 g/dl (32.0-35.9); MEAN CELL VOLUME 87.5 fl (80-96); MONO % 4.8 % (3.8-10.2); NEUT % 88.9 % (42.8-82.8); PLATELET COUNT 307 K/MM3 (134-434); RBC 3.37 M/mm3 (4.00-5.60); RDW 17.5 % (11.9-15.9); WHITE BLOOD COUNT 19.5 K/mm3 (4.0-10.0)
[2019-07-03 09:49] LABS: ALBUMIN 1.5 g/dl (3.4-5.0); BILIRUBIN,TOTAL 0.6 mg/dL (0.2-1); BLOOD UREA NITROGEN 17.9 mg/dL (7-18); CALCIUM 7.4 mg/dL (8.5-10.1); CREATININE 0.8 mg/dL (0.55-1.3); MAGNESIUM 1.8 mg/dL (1.8-2.4); POTASSIUM 3.6 mmol/L (3.5-5.1); TOT PROT 5.5 g/dl (6.4-8.2)
--- NOTE | 2019-07-03 09:55 | PN ---
Progress Note, Physician Chief Complaint: no CP, SOB, palps. History of Present Illness: AC resumed - Current Medication List Current Medications: Active Medications Acetaminophen (Tylenol -) 650 mg PO Q6H PRN PRN Reason: PAIN LEVEL 4 - 6 Amino Acids (Prosource No Carb Liquid Pkt) 30 ml PO BID@0800,1730 [facility] Last Admin: 07/03/19 08:59 Dose: 30 ml Apixaban (Eliquis -) 5 mg PO BID [facility] Last Admin: 07/03/19 09:00 Dose: 5 mg Docusate Sodium (Colace -) 100 mg PO BID PRN PRN Reason: CONSTIPATION Furosemide (Lasix -) 40 mg PO DAILY [facility] Last Admin: 07/03/19 09:00 Dose: 40 mg Ceftriaxone Sodium 2 gm/ (Dextrose) 100 mls @ 200 mls/hr IVPB DAILY [facility]; Protocol Last Admin: 07/02/19 10:57 Dose: 200 mls/hr Metronidazole (Flagyl 500mg Premixed Ivpb -) 500 mg in 100 mls @ 100 mls/hr IVPB Q8H-IV LAUREN Last Admin: 07/03/19 09:00 Dose: 100 mls/hr Lactobacillus Acidophilus (Bacid -) 1 tab PO DAILY [facility] Last Admin: 07/03/19 09:00 Dose: 1 tab Melatonin (Melatonin) 5 mg PO HS PRN PRN Reason: INSOMNIA Last Admin: 07/03/19 02:52 Dose: 5 mg Metoprolol Succinate (Toprol Xl -) 200 mg PO DAILY [facility] Last Admin: 07/03/19 09:00 Dose: 200 mg Polyethylene Glycol (Miralax (For Daily Use) -) 17 gm PO DAILY [facility] Last Admin: 07/02/19 09:42 Dose: Not Given Sacubitril/Valsartan (Entresto 97 Mg-103 Mg Tablet) 1 tab PO BID [facility] Last Admin: 07/03/19 09:01 Dose: 1 tab - Objective Vital Signs: Vital Signs Temperature 97.7 F 07/03/19 06:00 Pulse Rate 81 07/03/19 06:00 Respiratory Rate 18 07/03/19 06:00 Blood Pressure 121/66 07/03/19 06:00 O2 Sat by Pulse Oximetry (%) 95 07/02/19 21:00 Constitutional: Yes: No Distress Eyes: Yes: Conjunctiva Clear HENT: Yes: Atraumatic Cardiovascular: Yes: Pulse Irregular Respiratory: Yes: CTA Bilaterally Gastrointestinal: Yes: Soft (Nontender) Edema: Yes Edema: LLE: 2+, RLE: 2+ Neurological: Yes: Alert, Oriented Labs: CBC, BMP 07/03/19 08:35 07/03/19 06:00 INR, PTT INR 1.27 (0.83-1.09) H 06/30/19 07:45 Assessment/Plan Assessment/Plan a/p: 78 m hx syst chf, ar/as, pafib, htn, hld here with drainage from wound. Sepsis, abscess, s/p R nephrectomy: - manage per urology, ID - s/p abscess drainage and wound debridement - back on AC pafib: -cont bb for rate control syst chf: chronic - has significant le edema, Cont PO Lasix - Cont bb, entresto as/ar: Pt denies symptoms. Outpt f/u. hld: -cont statin htn: -cont home meds
[2019-07-03] MEDS: CEFTRIAXONE 2 GM in DEXTROSE 5%-WATER 100 ML IVPB SCH (11:03)
[2019-07-03] MEDS: POLYETHYLENE GLYCOL 3350 119 GM BTL PO SCH (11:06)
--- NOTE | 2019-07-03 11:32 | PN ---
Progress Note (short form) - Note Progress Note: afebrile voiding spontaneosly urine clear retroperitoneal drain with min output WBC increased will repeat CT Problem List - Problems (1) Abdominal wall abscess at site of surgical wound Code(s): T81.49XA - INFECTION FOLLOWING A PROCEDURE, OTHER SURGICAL SITE, INIT
--- NOTE | 2019-07-03 13:19 | PN ---
Progress Note, SENIOR CORPORATE ACCOUNTANT - Note Progress Note: Selected Entries 07/02/19 07/02/19 07/02/19 06:00 10:00 13:35 Temperature 98.9 F 97.4 F L 98.2 F 07/02/19 07/02/19 07/02/19 14:00 18:00 22:00 Temperature 98.4 F 99.0 F 99.1 F 07/03/19 07/03/19 06:00 10:00 Temperature 97.7 F 98.6 F Laboratory Tests 06/30/19 07/01/19 07/02/19 07:45 10:13 07:40 WBC 14.6 H 16.4 H 15.1 H 07/03/19 08:35 WBC 19.5 H Dys whole/thin liquids ordered. Pt and would like to remain on puree for now. Pt denies difficulty swallowing but feel more comfortable with pureed diet. They deny h/o dysphagia or Gerd and do not want a w/u at this time(MBS/ esophagram). Suggest-Puree/thin liquids per pt request Now NPO for celluilitis of abd wall, per EMR
--- NOTE | 2019-07-03 15:17 | DS ---
Physical Exam: HOSPITAL COURSE: Date of Admission:06/24/19 This is a 78 year old male with a past medical history of atrial fibrillation on eliquis, hypertension, HFrEF (EF 30%), hyperlipidemia, renal cell carcinoma s /p nephrectomy 05/18/2019. Initially presented to the hospital for increased drainage from his surgical site after a recent right sided radical laparoscopic nephretomy. Patient was found to have retroperitoneal abscess on imaging. Cultures: Microbiology 06/24/19 02:49 Abdomen Gram Stain - Final 06/24/19 02:49 Abdomen Wound Culture - Preliminary Streptococcus Anginosus Beta Hem Streptococcus Group F 06/25/19 12:37 Flank Gram Stain - Final 06/25/19 12:37 Flank Wound Culture - Preliminary Streptococcus Anginosus Beta Hem Streptococcus Group F 06/24/19 15:15 Abscess Gram Stain - Final 06/24/19 15:15 Abscess Body Fluid Culture - Preliminary Streptococcus Anginosus Beta Hem Streptococcus Group F 06/24/19 15:15 Abscess Anaerobic Culture - Final NO ANAEROBES WERE ISOLATED Patient was given cetriaxone/metronidazole antibiotic therapy. On 06/24/19, patient had IR percutaneous drainage On 06/25/19, patient had surgical drainage of abscess Postoperative course complicated by increased drainage, necessitating wound vac. Transfer arranged to [facility] to Dr. Christiano Apodaca for evaluation for ex-lap Minutes to complete discharge: 35 Discharge Summary Problems reviewed: Yes Reason For Visit: CELLULITIS OF ABDOMINAL WALL, ABDOMINAL FLUID Current Active Problems Abdominal fluid collection (Acute) Abdominal wall abscess at site of surgical wound (Acute) Abdominal wall cellulitis (Acute) Bacteremia (Acute) Poor appetite (Acute) Severe sepsis (Acute) Condition: Fair - Instructions Referrals: Kingston Bailey MD [Primary Care Provider] - - Home Medications Comprehensive Discharge Medication List: Ambulatory Orders Atorvastatin Ca [Lipitor] 20 mg PO DAILY 03/19/19 Metoprolol Succinate 200 mg PO DAILY 03/19/19 Acetaminophen [Tylenol .Regular Strength -] 325 mg PO Q6H PRN tablet 05/22/19 Apixaban [Eliquis -] 5 mg PO BID tablet 05/22/19 Docusate Sodium [Colace -] 100 mg PO BID PRN capsule 05/22/19 Polyethylene Glycol 3350 [Miralax 119 gm Btl -] 17 gm PO DAILY #1 bottle This patient is new to me today: Yes Date on this admission: 07/03/19 Emergency Visit: No Critical Care patient: No - Discharge Referral Referred to [facility] Med P.C.: No ATTENDING PHYSICIAN STATEMENT I saw and evaluated the patient. I reviewed the resident's note and discussed the case with the resident. I agree with the resident's findings and plan as documented. SUBJECTIVE: OBJECTIVE: ASSESSMENT AND PLAN:
--- NOTE | 2019-07-03 16:38 | PN ---
Progress Note (short form) - Note Progress Note: alert, resting comfortably s/p operative drainage of subcutaneous abscess pod #7 +decreased purulent drainage from the retroperitoneal drain-5 cc documented despite upsizing the drain serous drainage from EDE drain converted to a vac no complaints Vital Signs Period Temp Pulse Resp BP Sys/Blanco Pulse Ox Last 24 Hr 97.7 F-99.1 F 78-90 18-18 100-122/55-67 95-97 cor-rrr lungs decreased bs at bases abd soft, +vac +retroperitoneal drain with minimal output ext bilateral edema unchanged CBC, BMP 07/03/19 08:35 07/03/19 06:00 Microbiology 06/24/19 02:49 Abdomen Gram Stain - Final 06/24/19 02:49 Abdomen Wound Culture - Preliminary Streptococcus Anginosus Beta Hem Streptococcus Group F 06/25/19 12:37 Flank Gram Stain - Final 06/25/19 12:37 Flank Wound Culture - Preliminary Streptococcus Anginosus Beta Hem Streptococcus Group F 06/24/19 15:15 Abscess Gram Stain - Final 06/24/19 15:15 Abscess Body Fluid Culture - Preliminary Streptococcus Anginosus Beta Hem Streptococcus Group F 06/24/19 15:15 Abscess Anaerobic Culture - Final NO ANAEROBES WERE ISOLATED 06/26/19 14:50 Blood - Peripheral Venous Blood Culture - Final NO GROWTH AFTER 5 DAYS INCUBATION 06/26/19 05:40 Blood - Peripheral Venous Blood Culture - Final NO GROWTH AFTER 5 DAYS INCUBATION 06/24/19 03:59 Abscess Gram Stain - Final 06/24/19 03:59 Abscess Wound Culture - Final Streptococcus Species 06/24/19 02:00 Blood - Peripheral Venous Blood Culture - Final Staphylococcus Saccharolyticus 06/24/19 02:00 Blood - Peripheral Venous Blood Culture - Final Streptococcus Anginosus 06/25/19 22:30 Urine - Urine Clean Catch Urine Culture - Final NO GROWTH OBTAINED ct scan reviewed with dr oliveira- pleural effusion on right improved, no change in retroperitoneal abscess despite presence of catheter echo noted-unchanged from 12/05 a/p leukocytosis- agree with plans fro transfer for exlap as abscess has not responded to percutaneous drainage abscess- strep anginosus/group f strep bacteremia secondary to abscess-strep anginosus, staph sacchoryliticus repeat blood cultures are negative echo noted-prior echo unchanged- less likely endocarditis- will most likely require prolonged antibiotic course continue rocephin/flagyl history afib s/p nephrectomy for RCC prostate ca- on medical treatment poor nutritional status will be a major issue - albumin is 1.2-add ensure-
--- NOTE | 2019-07-03 17:01 | PN ---
Teaching Attending Note Name of Resident: Marky Lopez ATTENDING PHYSICIAN STATEMENT I saw and evaluated the patient. I reviewed the resident's note and discussed the case with the resident. I agree with the resident's findings and plan as documented. SUBJECTIVE: Seen and examined at bedside with present. Dr. Vaz from urology requesting transfer to [facility] under Dr. Christiano Apodaca's service from urology for possible exploratory surgery. Patient is not responding to Abx and leukocytosis worsened today to 19,500. Afebrile. Tmax 99.1 Denies fever or chills. OBJECTIVE: AAOx3 Irregular pulse ABD with wound vac in place with serous drainage. Retroperitoneal drain with purulent drainage ABD is soft obese non tender but has bowel sounds. 2+ lower extremity pitting edema ASSESSMENT AND PLAN: See discharge summary for hospital course but briefly, Patient is a 78 year old male with a significant past medical history of hypertension, hld, afib who is s /p elective laparoscopic R radical nephrectomy on 05/18/2019 for a right kidney mass. Patient presented to the ED on 06/23/2019 for right lower abdomen cellulitis, with foul smelling drainage of surgical site. He is now s/p incision/drainage right flank abscess and wound exploration which found multiple loculated collections involving the subcutaneous space and fascia layer. He is s/p wound vac placement on 06/30/2019 to right lower abdominal surgical site. flank rosalinda drain with small amt of purulent drainage (drainage cath upsized on 06/30/2019). He is on ceftriaxone and Flagyl. Patient is to be transferred to [facility] under Dr. Christiano Apodaca's service. Discussed with Dr. Garza. I also discussed with patient and his . Consent obtained. Pending bed offer from [facility]. Patient may require exploratory surgery as he is not responding to ABx and drainage
[2019-07-03 21:06] VITALS: BP 130/69; PULSE 84; TEMP 98.5
== END 2019-07-03 21:48 | disposition short-term general hospital (02) | DRG 856 ==
LOC: JER 00:59 → JERBED 03:44 → J5S 16:58 → JICU 06-25 13:56 → J5S 06-28 02:56
PROVIDERS: ADMIT Internal Medicine; ATTEND Internal Medicine
PROC: 0WBH0ZZ Excision of Retroperitoneum, Open Approach (ICD-10-PCS; 2019-06-25)
PROC: 0W9G00Z Drainage of Peritoneal Cavity with Drainage Device, Open Approach (ICD-10-PCS; principal; 2019-06-25 12:00)
PROC: 0W2HX0Z Change Drainage Device in Retroperitoneum, External Approach (ICD-10-PCS; 2019-06-30)
DX: K68.11 Postprocedural retroperitoneal abscess (principal); A40.9 Streptococcal sepsis, unspecified; R65.20 Severe sepsis without septic shock; I48.21 Permanent atrial fibrillation; R18.8 Other ascites; I50.22 Chronic systolic (congestive) heart failure; C64.9 Malignant neoplasm of unspecified kidney, except renal pelvis; J90 Pleural effusion, not elsewhere classified; R63.0 Anorexia; C61 Malignant neoplasm of prostate; E78.00 Pure hypercholesterolemia, unspecified; Z87.891 Personal history of nicotine dependence
CPT/HCPCS: 36415; 49406; 49423; 71045-TC-FY; 74018-TC-FY; 74176-TC; 74178-TC; 76000-TC-FY; 76098-TC-FY; 76380-TC; 76998-TC; 80053; 82728; 82803; 83036; 83540; 83550; 83605; 83735; 84100; 84484; 85025; 85027; 85610; 85651; 85730; 86140; 87040; 87070; 87075; 87077; 87086; 87186; 87205; 87899; 88304-TC; 93005; 93010; 93306-TC; 93970-TC; 93971-TC; 94010; 97116-GP; 97162-GP; 99285-25; A4358; C1729; C1769; G0480; J1644; Q9967